=== PATIENT | male | born 1945 | race Caucasian/White ===

== ENCOUNTER → 2017-03-03 | Outpatient (CLI) | payer MEDICARE ==
[~2017-03-03] MED LIST: /PANT40TA OR; ASPI81TA83 OR; DOCU10ELUD PO; LIDO5DIS TOP; LISI20TA5 OR; MILKSUS5 PO; MIRALEX PO; MS C30TA2 OR; MULTIVIT PO; NALOXONE OR; NAPR500T OR; NEUR300C PO; NORC5TAB PO; PENTAZOCINE OR; SIMV40TA2 OR; SKEL800T5 OR; SOMA350T OR; SOMA350T PO; TALWIN PO; TRAM50TA2 OR; TUMS500C OR; TYLE325T5 PO; ZOFR8TAB OR; flexeril PO
--- NOTE | 2017-03-03 15:44 | REP ---
MRI RIGHT HIP: TECHNIQUE: Coronal T1, STIR through the pelvis, T2 fat sat, right hip all three planes, axial oblique proton density fat sat right hip. The visualized osseous structures demonstrate normal marrow signal. There is no evidence of occult fracture. There is no evidence of avascular necrosis. I do not see evidence of a labral tear. There is no joint effusion. There is no paralabral cyst or other surrounding soft tissue abnormality. There is no evidence of trochanteric bursitis. Within the visualized portions of the pelvis, note is made of a significantly enlarged prostate. This impresses upon the base of the bladder. IMPRESSION: Essentially negative MRI right hip. Enlargement of the prostate. Signed by James Cantrell MD 03/03/2017 04:55 P
== END ==
LOC: M RAD 11:00
PROVIDERS: ATTEND Nurse Practitioner Family
DX: M47.816 Spondylosis without myelopathy or radiculopathy, lumbar region (principal); M25.551 Pain in right hip; M51.27 Other intervertebral disc displacement, lumbosacral region; M51.37 Other intervertebral disc degeneration, lumbosacral region; M54.16 Radiculopathy, lumbar region; M46.1 Sacroiliitis, not elsewhere classified; I10 Essential (primary) hypertension; N40.0 Benign prostatic hyperplasia without lower urinary tract symptoms

== ENCOUNTER → 2017-08-18 | Outpatient (REF) | payer MEDICARE | LOC: M LAB REF 17:43 | PROVIDERS: ATTEND Surgery | DX: C44.519 Basal cell carcinoma of skin of other part of trunk (principal) ==

== ENCOUNTER → 2018-03-27 | Outpatient (CLI) | payer MEDICARE | LOC: M RAD 10:03 | DX: M54.12 Radiculopathy, cervical region (principal) | CPT/HCPCS: 72141 ==

== ENCOUNTER → 2019-01-29 | Outpatient (CLI) | payer MEDICARE ==
--- NOTE | 2019-01-29 11:20 | REP ---
MRI THORACIC SPINE WITHOUT CONTRAST: HISTORY: Thoracic radiculopathy. Comparison is made with a chest x-ray from April 26, 2012 and lumbar spine MR images from December 17, 2014. TECHNIQUE: Sagittal and axial T1- and T2-weighted scans are acquired in the usual fashion with and without fat saturation. Sequences include spin echo, turbo spin-echo, and STIR imaging sequences. MRI FINDINGS: Thoracic vertebral body heights are preserved. There is degenerative spondylosis changes in the mid and lower thoracic spine. Thoracic cord is normal in coarse, caliber and signal intensity. The tip of the conus medullaris is normal in position and appearance at L1. There is a central focal disc protrusion at T10-T11 which indents the ventral margin of the thecal sac. This subtly indents the ventral margin of the cord as well on sagittal T2-weighted scans. No central canal stenosis is seen. At T9-10, there is a right posterior focal disc protrusion effacing the thecal sac. This does not contact the cord. As above, mild diffuse bulging is seen at T8-9. T8-9 disc space is narrowed. At T7-8, there is a central focal disc protrusion effacing the ventral subarachnoid space. This indents the ventral margin of the cord. No overall central canal stenosis is seen. At T6-7, there is also a focal disc protrusion centrally. This contacts the ventral margin of the cord. No cord compression is seen. No other thoracic disc protrusion is seen. No neural foraminal lesion is observed. IMPRESSION: Degenerative spondylosis changes with multiple thoracic disc protrusions Electronically Signed by Domingo Card MD 01/29/2019 12:50 P
== END ==
LOC: M RAD 07:07
PROVIDERS: ATTEND Family Medicine
DX: M47.814 Spondylosis without myelopathy or radiculopathy, thoracic region (principal); M54.14 Radiculopathy, thoracic region; M51.24 Other intervertebral disc displacement, thoracic region

== ENCOUNTER → 2019-03-09 | Outpatient (CLI) | payer MEDICARE ==
[~2019-03-09] MED LIST changes: -/PANT40TA OR; -DOCU10ELUD PO; +DOCU5LIQ PO; +ONDA-227 OR; +PROT1TAB2 OR; -ZOFR8TAB OR
--- NOTE | 2019-03-09 08:27 | REP ---
CT of the abdomen pelvis without IV or bowel contrast for generalized abdominal pain: There are no comparisons. The the visualized lower lung brock demonstrate deformities anteriorly in the right fourth and fifth ribs, unchanged from the comparison plain film study of 04/26/2012. This may represent synostosis. There is a nodular density with adjacent linear stranding in the lung adjacent to this rib deformity measuring 19 mm. There are no comparison CT studies. There is deformity of the posterior arch of the left sixth rib, partially included on the study. On the comparison plain film of 04/26/2012. This appears to be an old healed fracture. There is a pleural-based 1.3 cm nodule peripherally in the left lower lobe on image 12. There is an infiltrate like density in the right lower lobe on the superior most image, partially included. The unenhanced hepatic parenchyma demonstrates hepato steatosis but is otherwise unremarkable. There are multiple gallbladder calculi measuring up to 1.4 cm. The gallbladder is otherwise unremarkable. There is no biliary duct dilatation. The unenhanced pancreas is unremarkable. The spleen is normal size unremarkable except for calcified granulomas. The adrenals are unremarkable. There are bilateral renal cortical simple cysts, the largest in the left kidney measuring up to 2.9 cm. There is a large left renal lower pole parapelvic cyst measuring up to 5.1 cm. There is no hydronephrosis or perinephric stranding. The abdominal aorta is unremarkable. There is no retroperitoneal adenopathy or mass. There is no bowel distension or obstruction. The mesentery is unremarkable. Pelvis: The the patient has an appendectomy. The bladder is unremarkable. The prostate is enlarged and effaces the bladder base. There is no pelvic adenopathy or ascites. The pelvic bowel loops are unremarkable. There is no diverticulosis or diverticulitis. Impression: Rib deformities as described. Lung nodules as described. Right lower lobe infiltrate as described. Hepato steatosis. Cholelithiasis. Bilateral simple renal cortical cysts and left renal parapelvic cyst. No renal or ureteral calculi. No hydronephrosis. No ascites, adenopathy or mass. There is lumbar scoliosis convex right and there is multilevel lumbar degenerative disc disease. The prostate is enlarged and effaces the bladder base. Electronically Signed by James De Los Santos MD 03/09/2019 08:19 A
== END ==
LOC: M RAD 07:16
PROVIDERS: ATTEND Family Medicine
DX: R10.84 Generalized abdominal pain (principal); K80.20 Calculus of gallbladder without cholecystitis without obstruction; N28.1 Cyst of kidney, acquired; Z90.49 Acquired absence of other specified parts of digestive tract; N40.0 Benign prostatic hyperplasia without lower urinary tract symptoms; R91.8 Other nonspecific abnormal finding of lung field; M51.36 Other intervertebral disc degeneration, lumbar region

== ENCOUNTER → 2019-03-20 | Outpatient (CLI) | payer MEDICARE ==
[~2019-03-20] MED LIST changes: +ISOVUE-370 76% 100ML VIAL (Q9967) As Ordered ONE
--- NOTE | 2019-03-21 08:01 | REP ---
CT chest with IV contrast: History: Abnormal lung field finding. Comparison is made with CT abdomen study March 09, 2019. Comparison chest x-ray is from April 26, 2012. CT contrast dose: 100 ml of intravenous Isovue 370. CT findings: Digital preliminary motion picture operator radiograph demonstrates a levoconvex thoracic curvature consistent with scoliosis. There is a right thoracic cage deformity which includes a fusion anomaly and the anterior ends of the right fourth and fifth ribs. Some associated bony hypertrophy and this fusion anomaly indents the anterior aspect of the right lung at this level. There is an old healed rib fracture on the left involving rib number seven posterolaterally. There is an area of linear pleural calcification and adjacent scarring in this left lateral chest wall region. There is extensive pleuroparenchymal fibrosis in the right middle lobe. A there is no evidence of pleural effusion. Some of bilateral lower lobe linear fibrosis is seen. There are granulomatous lymph node calcifications the precarinal region as well as right hilar lymph nodes. No significant adenopathy is seen. There are scattered pulmonary granulomata. The nodular opacity described in the right middle lobe on the CT abdomen is seen to be fibrosis as is the nodular opacity in the left base. No significant pulmonary nodule is appreciated. Fatty infiltration of the liver is again noted along with gallstones. No adrenal lesion is seen. Visualized upper abdominal structures are otherwise unremarkable. There is some bilateral coronary artery vascular calcification. A right thyroid nodule is noted measuring 2.9 x 83.4 x 2.6 cm. 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 Old posterior rib fracture on the left. Bilateral areas of pleuroparenchymal scarring and old granulomatous disease. No active cardiopulmonary disease seen. Fatty infiltration of the liver and gallstones again noted. There is a right thyroid nodule also noted. Electronically Signed by Domingo Card MD 03/21/2019 09:10 A
== END ==
LOC: M RAD 15:24
PROVIDERS: ATTEND Family Medicine
DX: K76.0 Fatty (change of) liver, not elsewhere classified (principal); E04.1 Nontoxic single thyroid nodule; J94.8 Other specified pleural conditions; K80.20 Calculus of gallbladder without cholecystitis without obstruction
CPT/HCPCS: 71260; Q9967

== ENCOUNTER → 2019-06-14 | Outpatient (REF) | payer MEDICARE ==
[~2019-06-14] MED LIST changes: -ISOVUE-370 76% 100ML VIAL (Q9967) As Ordered ONE
== END ==
LOC: M LAB REF 11:28
PROVIDERS: ATTEND Internal Medicine Endocrinology, Diabetes & Metabolism
DX: E04.1 Nontoxic single thyroid nodule (principal)

== ENCOUNTER → 2019-08-08 | Outpatient (CLI) | payer MEDICARE ==
--- NOTE | 2019-08-08 09:48 | REP ---
MRI of the lumbar spine without contrast Indication: Other intervertebral disc displacement, lumbar region. Comparison: MRI of the lumbar spine 12/17/2014. Technique: MRI of the lumbar spine was performed utilizing sagittal STIR, T1 and T2, and axial T1 and T2 weighted imaging. No intravenous contrast was administered. Findings: There is dextrocurvature of the lumbar spine. There is normal alignment of the lumbar spine. Vertebral body heights are maintained. There are multilevel degenerative changes including loss of disc height and endplate marrow edema and disc osteophyte complex formation at L2-L3, L3-L4 and L4-L5. The visualized spinal cord is normal. The conus medullaris terminates at the level of L1. The posterior paraspinal muscles are within normal limits. 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 Note is made of T2 hyperintensities within both kidneys which are incompletely imaged but possibly representing cysts. Level specific observations: L1-L2: Unremarkable. L2-L3: Diffuse disc bulge, eccentric to the right. Bilateral facet arthropathy. L3-L4: Diffuse disc bulge, eccentric to the left. Bilateral facet arthropathy. Bilateral neural foraminal narrowing, similar to prior. L4-L5: Diffuse disc bulge. Bilateral facet arthropathy. Severe right and mild left neural foraminal narrowing, similar to prior. L5-S1: Unremarkable. Impression: When compared to the MRI lumbar spine of 12/17/2014, no significant change in lumbar spondylosis at L2-L5, worse at L4-L5 with severe right and mild left neural foraminal narrowing. Dextro curvature of the lumbar spine. Electronically Signed by Trish Bonilla MD 08/08/2019 09:40 A
== END ==
LOC: M RAD 08:38
PROVIDERS: ATTEND Family Medicine
DX: M51.26 Other intervertebral disc displacement, lumbar region (principal)

== ENCOUNTER → 2019-09-12 | Outpatient (CLI) | payer MEDICARE ==
[~2019-09-12] MED LIST changes: +ISOVUE-370 76% 100ML VIAL (Q9967) As Ordered ONE
--- NOTE | 2019-09-12 10:58 | REP ---
CT neck soft tissues: 09/12/2019. Indication: Thyroid mass. Comparison: Chest CT dated 03/20/2019. Technique: Enhanced axial CT images of the neck were performed with coronal and sagittal reconstructions provided. 75 ml of IV Isovue 370 were administered. Findings: The dominant right thyroid nodule is increased in size compared to the previous study now measuring 3.8 by 3.1 x 3.7 with mild leftward deviation of the trachea. The mass extends minimally into the superior mediastinum. Lack of contrast within the right sigmoid sinus that appears to extend through the jugular foramen with occlusion of the most proximal/superior right IJ. The visualized lungs are clear. 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 There is no evidence of cervical lymphadenopathy. Atherosclerotic disease of the V4 segments is present. No significant ocular or intraorbital abnormalities are detected. There is minimal sinus disease within the inferior maxillary sinuses, more pronounced on the right. The mastoid air cells are clear. Impression: Dominant right thyroid nodule with measurements as described. No cervical lymphadenopathy. Right sigmoid sinus dural sinus thrombosis with thrombus extending into the proximal IJ is suspected. CT venogram could be performed if indicated. Mediastinal calcification raising question of calcified lymph nodes as described. Mild maxillary sinus disease. Electronically Signed by Aravind Mcbride DO 09/12/2019 10:49 A
== END ==
LOC: M RAD 09:52
PROVIDERS: ATTEND Student in an Organized Health Care Education/Training Program
DX: E04.9 Nontoxic goiter, unspecified (principal)
CPT/HCPCS: 70491; Q9967

== ENCOUNTER → 2019-11-30 | Outpatient (CLI) | payer MEDICARE ==
[~2019-11-30] MED LIST changes: -ISOVUE-370 76% 100ML VIAL (Q9967) As Ordered ONE
--- NOTE | 2019-11-30 11:28 | REP ---
Clinical: Right lower extremity pain . Technique: Cantrell scale and color Doppler evaluation using linear high frequency transducer. Findings: Ultrasound examination of the right lower extremity deep venous structures from the common femoral vein to the popliteal vein demonstrates normal compressibility flow and wave patterns in response to respiration and augmentation. There is no evidence for deep venous thrombosis. 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 Impression: No evidence for deep venous thrombosis. Electronically Signed by Erlin Charlton MD 11/30/2019 11:19 A
== END ==
LOC: M RAD 10:05
PROVIDERS: ATTEND Nurse Practitioner Family
DX: M79.604 Pain in right leg (principal)

== ENCOUNTER → 2019-12-10 | Outpatient (REF) | payer MEDICARE ==
[2019-12-12 14:10] LABS: THRYOGLOBULIN ANTIBODIES (ATA) < 1.0 IU/mL (0.0-0.9); THYROGLOBULIN QUANTITATIVE 12.8 ng/mL (1.4-29.2)
== END ==
LOC: M LABDRAW1 17:23
PROVIDERS: ATTEND Internal Medicine Endocrinology, Diabetes & Metabolism
DX: C73 Malignant neoplasm of thyroid gland (principal)

== ENCOUNTER → 2020-11-13 | Outpatient (CLI) | payer MEDICARE ==
[2020-11-13 14:28] LABS: CALCIUM LEVEL 9.8 MG/DL (8.8-10.2); FREE T4 1.37 NG/DL (0.76-1.46); THYROGLOBULIN ANTIBODY < 15.0 U/ML (<60.0); THYROID STIMULATING HORMONE 0.027 uIU/ML (0.358-3.740)
[2020-11-14 10:12] LABS: THRYOGLOBULIN ANTIBODIES (ATA) < 1.0 IU/mL (0.0-0.9); THYROGLOBULIN QUANTITATIVE < 0.1 ng/mL (1.4-29.2)
== END ==
LOC: M PLALAB 10:25
PROVIDERS: ATTEND Internal Medicine Endocrinology, Diabetes & Metabolism
DX: C73 Malignant neoplasm of thyroid gland (principal); G56.00 Carpal tunnel syndrome, unspecified upper limb

== ENCOUNTER → 2021-01-25 | Outpatient (CLI) | payer MEDICARE ==
[~2021-01-25] MED LIST changes: +DORZ2SOL5 OU; +ECOT81TA5 PO; +LEVO137T2 PO; +LISI20TA33 PO; +METF10004 PO; +OXYC10TA3 PO; +PREG200C PO; +SIMV40TA20 PO; +TAMS1CAP17 PO
== END ==
LOC: M LABSMTC 09:56
PROVIDERS: ATTEND Anesthesiology
DX: Z01.812 Encounter for preprocedural laboratory examination (principal); Z20.822 Contact with and (suspected) exposure to COVID-19

== ENCOUNTER 2021-01-30 06:06 | Day surgery (SDC) | payer MEDICARE ==
[~2021-01-30] VITALS: Ht 170.2 cm; Wt 93.0 kg
[2021-01-30] MEDS ORDERED: ceFAZolin SOD 2 GM in IV 1 EA IV ONE (07:00)
[2021-01-30] MEDS ORDERED: LR 1,000 ML IV ONE (07:00)
[2021-01-30] MEDS ORDERED: BUPIVACAINE/EPIN 0.25% 30 ML VIAL As Ordered ONE (07:14)
[2021-01-30] MEDS ORDERED: ROCURONIUM BROMIDE 50 MG/5 ML VIAL As Ordered ONE ×2 (07:20→09:40)
[2021-01-30] MEDS ORDERED: propofoL 200 MG/20 ML VIAL As Ordered ONE ×2 (07:20→07:21)
[2021-01-30] MEDS ORDERED: LIDOCAINE 2% 100MG/5ML SDV (FOR ANES.) As Ordered ONE (07:20)
[2021-01-30] MEDS ORDERED: fentaNYL 250 MCG/5 ML INJECTION (J3010) As Ordered ONE (07:20)
[2021-01-30] MEDS ORDERED: MIDAZOLAM INJ 2MG/2ML VIAL (J2250 PER 1MG) As Ordered ONE (07:21)
[2021-01-30] MEDS ORDERED: KETOROLAC 60MG 2ML VIAL As Ordered ONE (08:15)
[2021-01-30] MEDS ORDERED: ONDANSETRON 4MG/2ML VIAL As Ordered ONE (08:15)
[2021-01-30] MEDS ORDERED: ACETAMINOPHEN 1000MG 100ML IV BTL (OFIRMEV) (J0131 PER 10MG) As Ordered ONE (08:15)
[2021-01-30] MEDS ORDERED: SUGAMMADEX SODIUM 500 MG/5 ML VIAL (BRIDION) As Ordered ONE (08:16)
[2021-01-30] MEDS ORDERED: LR 1,000 ML IV SCH (09:00)
[2021-01-30] MEDS ORDERED: METOCLOPRAMIDE INJ 10MG/2ML VIAL (J2765 PER 1) IV PRN (09:00)
[2021-01-30] MEDS ORDERED: ONDANSETRON 4MG/2ML VIAL IV PRN (09:00)
[2021-01-30] MEDS ORDERED: fentaNYL 100 MCG/2 ML INJECTION (J3010) IV PRN (09:00)
[2021-01-30] MEDS ORDERED: oxyCODONE 5MG TAB PO PRN (09:00)
[2021-01-30] MEDS ORDERED: NORCO, ANEXSIA 5/325MG TABLET (HYDROcodone/ACETAMINOPHEN) PO PRN (09:05)
[2021-01-30] MEDS ORDERED: MEPERIDINE INJ 25 MG/ML VIAL (J2175) As Ordered ONE (09:14)
[2021-01-30] MEDS: MEPERIDINE INJ 25 MG/ML VIAL (J2175) IV PRN ×2 (09:16→09:22)
--- NOTE | 2021-01-30 09:21 | RO ---
OPERATIVE NOTE DATE OF OPERATION: 01/30/2021 PREOPERATIVE DIAGNOSIS: Umbilical hernia. POSTOPERATIVE DIAGNOSIS: Umbilical hernia. PROCEDURE: Robotic umbilical hernia repair. SURGEON: James Collier DO CHANGE ROOM ATTENDANT: Sanna Newsome ANESTHESIA: General EBL: 5. COMPLICATIONS: None. INDICATIONS FOR PROCEDURE: The patient is a 75-year-old male who presents with umbilical bulge and some pain, found to have an umbilical hernia. Recommendation made to proceed with robotic repair. Risks and benefits of the procedure not limited to but including bleeding, infection, hernia recurrence, hernia formation, damage to surrounding structures, need for further surgery were discussed in detail with the patient and informed consent was obtained and procedure planned. DESCRIPTION OF PROCEDURE: The patient was brought back to operating room 7, after sufficient sedation the abdomen was sterilely prepped and draped. Time out was done confirming proper patient, proper procedure. An 8 mm incision was made in left upper quadrant, Veress needle inserted and abdomen insufflated to 15 mmHg. Veress needle was then removed. 8 mm Optiview port was used to gain access to the abdomen. Once the abdomen was entered umbilical hernia was identified. Two more ports were then placed, one subxiphoid just to the left of the midline and one in right upper quadrant. Horizontal incision was then made into the preperitoneal space just superior to the umbilicus. The preperitoneal space was dissected free heading inferiorly surrounding the umbilicus. The umbilical defect was dissected free; all hernia sac and contents were reduced and completed. #0 Stratafix suture was used to reapproximate the fascia. Once that was completed the 3 x 5 cm piece of ProGrip mesh was placed into the preperitoneal space overlying the suture defect. The peritoneum was then closed over top of the mesh with running 2-0 V-Loc suture. Once this was all completed the abdomen was desufflated. Skin incisions were closed with 4-0 Vicryl subcuticular suture. The abdomen was cleaned and dried. Steri-Strips and 4 x 4 tapes were applied. This ended the procedure.
[2021-01-30 11:40] VITALS: BP 145/67
== END 2021-01-30 12:00 | disposition home or self-care (01) ==
LOC: M SDC 06:06
PROVIDERS: ATTEND Surgery
DX: K42.9 Umbilical hernia without obstruction or gangrene (principal); E11.9 Type 2 diabetes mellitus without complications; I10 Essential (primary) hypertension; E03.9 Hypothyroidism, unspecified; E78.5 Hyperlipidemia, unspecified; N40.0 Benign prostatic hyperplasia without lower urinary tract symptoms; Z85.850 Personal history of malignant neoplasm of thyroid; Z79.82 Long term (current) use of aspirin; Z79.84 Long term (current) use of oral hypoglycemic drugs; Z79.899 Other long term (current) drug therapy
CPT/HCPCS: 49652; C1781; J0131; J0690; J1885; J2175; J2250; J2405; J3010; S2900

== ENCOUNTER → 2021-03-10 | Outpatient (CLI) | payer MEDICARE ==
--- NOTE | 2021-03-10 14:44 | REP ---
INDICATION: MAL NEOPLASM OF THYROID. COMPARISON: None FINDINGS: Ultrasonographic evaluation of the central neck shows no evidence of a mass, adenopathy, or residual thyroid tissue. Evaluation of the right lateral neck cervical lymph node chain shows no evidence of adenopathy or mass. Evaluation of the left lateral neck. Cervical lymph node chain shows no evidence of a mass or adenopathy IMPRESSION: No evidence of adenopathy or mass as described above. <Electronically signed by Markus Gama > 03/10/21 [id number]
== END ==
LOC: M RAD 14:04
PROVIDERS: ATTEND Internal Medicine Endocrinology, Diabetes & Metabolism
DX: C73 Malignant neoplasm of thyroid gland (principal)

== ENCOUNTER → 2021-09-14 | Outpatient (CLI) | payer MEDICARE ==
--- NOTE | 2021-09-14 12:52 | REP ---
INDICATION: PAIN IN LEFT KNEE COMPARISON: None. TECHNIQUE: Five views left knee. FINDINGS: There is no evidence of acute fracture, dislocation, or intrinsic bone disease.There is mild medial joint space narrowing, subchondral sclerosis and spurring. Mild patellofemoral compartment narrowing and subchondral sclerosis. IMPRESSION: No fracture or dislocation. Mild degenerative changes. <Electronically signed by James Cantrell > 09/14/21 [id number]
== END ==
LOC: M RAD 11:57
PROVIDERS: ATTEND Family Medicine
DX: M17.12 Unilateral primary osteoarthritis, left knee (principal)

== ENCOUNTER → 2021-09-30 | Outpatient (CLI) | payer MEDICARE ==
--- NOTE | 2021-09-30 16:38 | REP ---
INDICATION: HX OF THYROID CA, MAL DINAH OF THYROID GLAND. COMPARISON: Ultrasound 03/10/2021, CT 09/12/2019. TECHNIQUE: Real-time sonographic evaluation of soft tissues neck performed. FINDINGS: Hypoechoic nodules are seen in the soft tissues of the neck, felt to represent lymph nodes. The largest on the right measure 1.3 x 0.3 x 1.1 cm and 1.1 x 0.6 x 1.0 cm. The largest on the left measure 6 x 5 x 5 mm and 7 x 3 x 6 mm. IMPRESSION: Hypoechoic nodules in the soft tissues of the neck are felt to represent lymph nodes as discussed in detail above. All lymph nodes demonstrate a short axis dimension that is sonographically within normal limits. <Electronically signed by James Cantrell > 09/30/21 [id number]
== END ==
LOC: M RAD 15:01
PROVIDERS: ATTEND Internal Medicine Endocrinology, Diabetes & Metabolism
DX: C73 Malignant neoplasm of thyroid gland (principal)

== ENCOUNTER 2021-10-14 06:09 | Emergency (ER) | payer MEDICARE ==
[~2021-10-14] VITALS: Ht 170.2 cm; Wt 93.2 kg
--- OUTSIDE RECORDS SUMMARY | 2021-10-14 06:13 | CCD ---
Author Organization Unknown Address [address] [place] [address] Phone [phone] Care Team Providers Care Relay Man Name Role Phone LORENA CABRAL MD 3 [phone] Allergies Code Code System Name Reaction Severity Status Onset NKDA Medications Name Status Start Date Stop Date amitriptyline 25 mg tablet 1 tab daily Completed 08/16/2019 amoxicillin 500 mg capsule Completed 12/24 amoxicillin 875 mg-potassium clavulanate 125 mg tablet Completed 05/29/2021 Asprin Ec Low Dose 81 mg tablet,delayed release Take 1 tablet every day by oral route. Active Not available cefuroxime axetil 500 mg tablet Completed 04/16/2019 dorzolamide 22.3 mg-timolol 6.8 mg/mL ey e drops INSTILL 1 DROP IN EACH EYE TWO TIMES A DAY Active Not available duloxetine 30 mg capsule,delayed release TAKE ONE CAPSULE BY MOUTH EVERY DAY Active Not available Fluad Quad (65yr up)(PF) 60 mcg (15 mcg x 4)/0.5mL IM syringe INJECT DIRECTED Completed 11/24/2020 levofloxacin 500 mg tablet 1 tab daily Completed 07/03/2019 levothyroxine 137 mcg tablet TAKE ONE TABLET BY MOUTH DAILY Active Not avai lable lisinopril 20 mg tablet TAKE ONE TABLET BY MOUTH EVERY DAY Active Not available metformin 1,000 mg tablet Active Not av ailable metformin ER 500 mg tablet,extended rele ase 24 hr 1 tab twice daily Completed 11/24/2020 methylprednisolone 4 mg tablets in a dose pack Completed 04/30/2021 morphine 15 mg immediate release tablet TAKE ONE TABLET BY MOUTH TWICE A DAY NEEDED MAXIMUM DAILY DOSE 2 Active Not available neomycin 3.5 mg/g-polymyxin B 10,000 unit/g-dexameth 0.1 % eye o int Completed 07/03/2019 ondansetron HCl 4 mg tablet Completed 05/29 OneTouch Verio test strips USE DIRECTED TWO TIMES A DAY Active Not maricruz ilable oxycodone-acetaminophen 10 mg-325 mg tab let TAKE ONE TABLET BY MOUTH EVERY 8 HOURS NEEDED MAXIMUM DAILY DOSE 3 TABLET Active Not available prednisone 20 mg tablet Completed 01/17/20 pregabalin 150 mg capsule TAKE ONE CAPSULE BY MOUTH THREE TIMES A DAY MAXIMUM DAILY DOSE 3 CAPSULES Completed 09/09/2021 pregabalin 200 mg capsule TAKE ONE CAPSULE BY MOUTH THREE TIMES A DAY MAXIMUM DAILY DOSE 3 CAPSULES Active Not available ropinirole 0.5 mg tablet Completed 019 simvastatin 40 mg tablet TAKE ONE TABLET BY MOUTH IN THE EVENING Active Not available tamsulosin 0.4 mg capsule Active Not av ailable Problems Name Status Onset Date Source Hypertensive Disorder Active 01/17/2013 History 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 H istory Displacement of Lumbar Intervertebral Disc without Myelopath y Unknown 01/17/2013 History Prolapsed Lumbar Intervertebral Disc Active 01/17/2013 History Degeneration of Lumbosacral Intervertebral Disc Unknown 01/17/2013 History Degeneration of Lumbar Intervertebral Disc Active 01/17 History Inflammation of Sacroiliac Joint Unknown 07/31/2013 History Lumbosacral Radiculopathy Active 11/20/2013 Histor y Intervertebral Disc Prolapse Active 09/14/2015 His tory Degeneration of Lumbosacral Intervertebral Disc Active 09/14/2015 History Joint Finding Active 02/28/2017 History Neck Pain Active 03/20/2018 History Cervical Radiculopathy Active 03/20/2018 History Prolapsed Thoracic Intervertebral Disc Active 8 History Procedures Date Name Performed by Thyroidectomy Information not avai lable 10/24/2019 US, Doppler, Venous Information not avai lable Notes: appendectomy, left inguinal herni a repair, right inguinal hernia repair, tonsillectomy/adenoidectomy, right foot fusion, diaphramatic hernia repair, cosmetic eye surgery 10/201711/07/2017 Results Lab Results Date Name Specimen Result Interpretation Description Value Range Status Address 05/04/2021 [facility] Report NOS No observation recorded. [facility]: [address] , [place] 05/04/2021 SARS CoV 2 RNA (COVID-19), QL, retail assistant-PCR, Respirat ory Specimen NOS Normal Sars-cov-2 negative negative Final [facility]: [address] , [place] 03/16/2021 [facility] P[facility] Report NOS No observation recorded. [facility]: [address] [facility], [place] 03/16/2021 SARS CoV 2 RNA (COVID-19), QL, retail assistant-PCR, Respirat ory Specimen NOS Normal Sars-cov-2 negative negative Final [facility]: [address] [facility], [place] 12/26/2020 [facility] Pdf Report NOS No observation recorded. [facility]: [address] [facility], [place] 12/26/2020 SARS CoV 2 RNA (COVID-19), QL, retail assistant-PCR, Respirat ory Specimen NOS Normal Sars-cov-2 negative negative Final [facility]: [address] [facility], [place] 12/15/2020 [facility] Pdf Report NOS No observation recorded. [facility]: [address] [facility], [place] 12/15/2020 SARS CoV 2 RNA (COVID-19), QL, retail assistant-PCR, Respirat ory Specimen NOS Normal Sars-cov-2 negative negative Final [facility]: [address] [facility], [place] 04/29/2020 SARS CoV 2 RNA (COVID-19), QL, retail assistant-PCR, Respiratory Specim en No observation recorded. [employer]: [address] [facility], [place] Past Encounters 09/09/2021 Degeneration of Lumbar Intervertebral Disc; Degeneration of Lumbosacral Intervertebral Disc; Displacement of Lumbar Intervertebral Disc without Myelopathy; Intervertebral Disc Disorder; Spondylosis without Myelopathy; Lumbosacral Spondylosis without Myelopathy; Lumbar Radiculopathy; Cervical Radiculopathy; Displacement of Cervical Intervertebral Disc without Myelopathy; Degeneration of Cervical Intervertebral Disc; Cervical Spondylosis without Myelopathy; Inflammation of Sacroiliac Joint; Myofascial Pain; Thoracic Radiculopathy; Displacement of Thoracic Intervertebral Disc without Myelopathy; Degeneration of Thoracic Intervertebral Disc; Thoracic Spondylosis without Myelopathy; Pain in Right Lower Limb Julia Claros [employer]ER: [address], [place] [address], Ph. 05/08/2021 Thoracic Radiculopathy; Displacement of Thoracic Intervertebral Disc without Myelopathy; Degeneration of Thoracic Intervertebral Disc; Thoracic Spondylosis without Myelopathy; Degeneration of Lumbar Intervertebral Disc; Degeneration of Lumbosacral Intervertebral Disc; Displacement of Lumbar Intervertebral Disc without Myelopathy; Intervertebral Disc Disorder; Spondylosis without Myelopathy; Lumbosacral Spondylosis without Myelopathy; Lumbar Radiculopathy; Cervical Radiculopathy; Displacement of Cervical Intervertebral Disc without Myelopathy; Degeneration of Cervical Intervertebral Disc; Cervical Spondylosis without Myelopathy; Inflammation of Sacroiliac Joint; Myofascial Pain; Pain in Right Lower Limb Enio Mayes MD: [id number] [place] [address], Ph. 05/04/2021 Pre-surgery Testing; Viral Screening Enio Mayes MD: [address] [address], Ph. [phone] 04/30/2021 Degeneration of Lumbar Intervertebral Disc; Degeneration of Lumbosacral Intervertebral Disc; Displacement of Lumbar Intervertebral Disc without Myelopathy; Intervertebral Disc Disorder; Spondylosis without Myelopathy; Lumbosacral Spondylosis without Myelopathy; Lumbar Radiculopathy; Cervical Radiculopathy; Displacement of Cervical Intervertebral Disc without Myelopathy; Degeneration of Cervical Intervertebral Disc; Cervical Spondylosis without Myelopathy; Inflammation of Sacroiliac Joint; Myofascial Pain; Thoracic Radiculopathy; Displacement of Thoracic Intervertebral Disc without Myelopathy; Degeneration of Thoracic Intervertebral Disc; Thoracic Spondylosis without Myelopathy; Pain in Right Lower Limb Julia Claros [employer]: [address] [place] [address], Ph. 04/02/2021 Degeneration of Lumbar Intervertebral Disc; Degeneration of Lumbosacral Intervertebral Disc; Displacement of Lumbar Intervertebral Disc without Myelopathy; Intervertebral Disc Disorder; Spondylosis without Myelopathy; Lumbosacral Spondylosis without Myelopathy; Lumbar Radiculopathy; Cervical Radiculopathy; Displacement of Cervical Intervertebral Disc without Myelopathy; Degeneration of Cervical Intervertebral Disc; Cervical Spondylosis without Myelopathy; Inflammation of Sacroiliac Joint; Myofascial Pain; Thoracic Radiculopathy; Displacement of Thoracic Intervertebral Disc without Myelopathy; Degeneration of Thoracic Intervertebral Disc; Thoracic Spondylosis without Myelopathy; Pain in Right Lower Limb Julia Carson [place], [employer]ER: [address], [place] [address], Ph. 03/19/2021 Inflammation of Sacroiliac Joint; Degeneration of Lumbar Intervertebral Disc; Degeneration of Lumbosacral Intervertebral Disc; Displacement of Lumbar Intervertebral Disc without Myelopathy; Intervertebral Disc Disorder; Spondylosis without Myelopathy; Lumbosacral Spondylosis without Myelopathy; Lumbar Radiculopathy; Cervical Radiculopathy; Displacement of Cervical Intervertebral Disc without Myelopathy; Degeneration of Cervical Intervertebral Disc; Cervical Spondylosis without Myelopathy; Myofascial Pain; Thoracic Radiculopathy; Displacement of Thoracic Intervertebral Disc without Myelopathy; Degeneration of Thoracic Intervertebral Disc; Thoracic Spondylosis without Myelopathy; Pain in Right Lower Limb Enio Mayes MD: [address] [address], [place] [address], Ph. 03/16/2021 Pre-surgery Testing; Viral Screening Enio Mayes MD: [id number] [address], [place] [address], Ph. [phone] 03/02/2021 Degeneration of Lumbar Intervertebral Disc; Degeneration of Lumbosacral Intervertebral Disc; Displacement of Lumbar Intervertebral Disc without Myelopathy; Intervertebral Disc Disorder; Spondylosis without Myelopathy; Lumbosacral Spondylosis without Myelopathy; Lumbar Radiculopathy; Cervical Radiculopathy; Displacement of Cervical Intervertebral Disc without Myelopathy; Degeneration of Cervical Intervertebral Disc; Cervical Spondylosis without Myelopathy; Inflammation of Sacroiliac Joint; Myofascial Pain; Thoracic Radiculopathy; Displacement of Thoracic Intervertebral Disc without Myelopathy; Degeneration of Thoracic Intervertebral Disc; Thoracic Spondylosis without Myelopathy; Pain in Right Lower Limb Julia Claros NP: [id number] [facility] [address], [place] [address], Ph. 01/12/2021 Degeneration of Lumbar Intervertebral Disc; Degeneration of Lumbosacral Intervertebral Disc; Displacement of Lumbar Intervertebral Disc without Myelopathy; Intervertebral Disc Disorder; Spondylosis without Myelopathy; Lumbosacral Spondylosis without Myelopathy; Lumbar Radiculopathy; Cervical Radiculopathy; Displacement of Cervical Intervertebral Disc without Myelopathy; Degeneration of Cervical Intervertebral Disc; Cervical Spondylosis without Myelopathy; Inflammation of Sacroiliac Joint; Myofascial Pain; Thoracic Radiculopathy; Displacement of Thoracic Intervertebral Disc without Myelopathy; Degeneration of Thoracic Intervertebral Disc; Thoracic Spondylosis without Myelopathy; Pain in Right Lower Limb Julia ClarosJENNIFER: [address] [facility] [address], [place] [address], Ph. 12/31/2020 Lumbar Radiculopathy; Degeneration of Lumbar Intervertebral Disc; Degeneration of Lumbosacral Intervertebral Disc; Displacement of Lumbar Intervertebral Disc without Myelopathy; Intervertebral Disc Disorder; Spondylosis without Myelopathy; Lumbosacral Spondylosis without Myelopathy; Cervical Radiculopathy; Displacement of Cervical Intervertebral Disc without Myelopathy; Degeneration of Cervical Intervertebral Disc; Cervical Spondylosis without Myelopathy; Inflammation of Sacroiliac Joint; Myofascial Pain; Thoracic Radiculopathy; Displacement of Thoracic Intervertebral Disc without Myelopathy; Degeneration of Thoracic Intervertebral Disc; Thoracic Spondylosis without Myelopathy; Pain in Right Lower Limb Enio Mayes MD: [address] [address], [place] [address], Ph. 12/26/2020 Pre-surgery Testing; Viral Screening Enio Mayes MD: [address] [address], [place] [address], Ph. [phone] 12/18/2020 Lumbar Radiculopathy; Degeneration of Lumbar Intervertebral Disc; Degeneration of Lumbosacral Intervertebral Disc; Displacement of Lumbar Intervertebral Disc without Myelopathy; Intervertebral Disc Disorder; Spondylosis without Myelopathy; Lumbosacral Spondylosis without Myelopathy; Cervical Radiculopathy; Displacement of Cervical Intervertebral Disc without Myelopathy; Degeneration of Cervical Intervertebral Disc; Cervical Spondylosis without Myelopathy; Inflammation of Sacroiliac Joint; Myofascial Pain; Thoracic Radiculopathy; Displacement of Thoracic Intervertebral Disc without Myelopathy; Degeneration of Thoracic Intervertebral Disc; Thoracic Spondylosis without Myelopathy; Pain in Right Lower Limb Enio Mayes MD: [address] [facility] [address], [address], [place] [address], Ph. 12/15/2020 Pre-surgery Testing; Viral Screening Enio Mayes MD: 83156 [facility] [address], [place] [address], Ph. [phone] 11/24/2020 Degeneration of Lumbar Intervertebral Disc; Degeneration of Lumbosacral Intervertebral Disc; Displacement of Lumbar Intervertebral Disc without Myelopathy; Intervertebral Disc Disorder; Spondylosis without Myelopathy; Lumbosacral Spondylosis without Myelopathy; Lumbar Radiculopathy; Cervical Radiculopathy; Displacement of Cervical Intervertebral Disc without Myelopathy; Degeneration of Cervical Intervertebral Disc; Cervical Spondylosis without Myelopathy; Inflammation of Sacroiliac Joint; Myofascial Pain; Thoracic Radiculopathy; Displacement of Thoracic Intervertebral Disc without Myelopathy; Degeneration of Thoracic Intervertebral Disc; Thoracic Spondylosis without Myelopathy; Pain in Right Lower Limb Julia Alfredo Claros [employer]ER: [address] [address], [place] [address], Ph. 10/06/2020 Degeneration of Lumbar Intervertebral Disc; Degeneration of Lumbosacral Intervertebral Disc; Displacement of Lumbar Intervertebral Disc without Myelopathy; Intervertebral Disc Disorder; Spondylosis without Myelopathy; Lumbosacral Spondylosis without Myelopathy; Lumbar Radiculopathy; Cervical Radiculopathy; Displacement of Cervical Intervertebral Disc without Myelopathy; Degeneration of Cervical Intervertebral Disc; Cervical Spondylosis without Myelopathy; Inflammation of Sacroiliac Joint; Myofascial Pain; Thoracic Radiculopathy; Displacement of Thoracic Intervertebral Disc without Myelopathy; Degeneration of Thoracic Intervertebral Disc; Thoracic Spondylosis without Myelopathy; Pain in Right Lower Limb [facility] [place], [employer]ER: [address] [facility] [address], [place] [address], Ph. 08/06/2020 Degeneration of Lumbar Intervertebral Disc; Degeneration of Lumbosacral Intervertebral Disc; Displacement of Lumbar Intervertebral Disc without Myelopathy; Intervertebral Disc Disorder; Spondylosis without Myelopathy; Lumbosacral Spondylosis without Myelopathy; Lumbar Radiculopathy; Cervical Radiculopathy; Displacement of Cervical Intervertebral Disc without Myelopathy; Degeneration of Cervical Intervertebral Disc; Cervical Spondylosis without Myelopathy; Inflammation of Sacroiliac Joint; Myofascial Pain; Thoracic Radiculopathy; Displacement of Thoracic Intervertebral Disc without Myelopathy; Degeneration of Thoracic Intervertebral Disc; Thoracic Spondylosis without Myelopathy; Pain in Right Lower Limb Julia Claros, [employer]ER: [address] [address], Ph. 06/25/2020 Degeneration of Lumbar Intervertebral Disc; Degeneration of Lumbosacral Intervertebral Disc; Displacement of Lumbar Intervertebral Disc without Myelopathy; Intervertebral Disc Disorder; Spondylosis without Myelopathy; Lumbosacral Spondylosis without Myelopathy; Lumbar Radiculopathy; Cervical Radiculopathy; Displacement of Cervical Intervertebral Disc without Myelopathy; Degeneration of Cervical Intervertebral Disc; Cervical Spondylosis without Myelopathy; Inflammation of Sacroiliac Joint; Myofascial Pain; Thoracic Radiculopathy; Displacement of Thoracic Intervertebral Disc without Myelopathy; Degeneration of Thoracic Intervertebral Disc; Thoracic Spondylosis without Myelopathy; Pain in Right Lower Limb Julia Carson Hy[place], [employer]ER: [address] [address], Ph. 05/14/2020 Degeneration of Lumbar Intervertebral Disc; Degeneration of Lumbosacral Intervertebral Disc; Displacement of Lumbar Intervertebral Disc without Myelopathy; Intervertebral Disc Disorder; Spondylosis without Myelopathy; Lumbosacral Spondylosis without Myelopathy; Lumbar Radiculopathy; Cervical Radiculopathy; Displacement of Cervical Intervertebral Disc without Myelopathy; Degeneration of Cervical Intervertebral Disc; Cervical Spondylosis without Myelopathy; Inflammation of Sacroiliac Joint; Myofascial Pain; Thoracic Radiculopathy; Displacement of Thoracic Intervertebral Disc without Myelopathy; Degeneration of Thoracic Intervertebral Disc; Thoracic Spondylosis without Myelopathy; Pain in Right Lower Limb Julia Carson Hyacinth, [employer]ER: [address] [address], Ph. 05/02/2020 Thoracic Radiculopathy; Displacement of Thoracic Intervertebral Disc without Myelopathy; Degeneration of Thoracic Intervertebral Disc; Thoracic Spondylosis without Myelopathy; Degeneration of Lumbar Intervertebral Disc; Degeneration of Lumbosacral Intervertebral Disc; Displacement of Lumbar Intervertebral Disc without Myelopathy; Intervertebral Disc Disorder; Spondylosis without Myelopathy; Lumbosacral Spondylosis without Myelopathy; Lumbar Radiculopathy; Cervical Radiculopathy; Displacement of Cervical Intervertebral Disc without Myelopathy; Degeneration of Cervical Intervertebral Disc; Cervical Spondylosis without Myelopathy; Inflammation of Sacroiliac Joint; Myofascial Pain; Pain in Right Lower Limb Enio Mayes MD: [address] [address], [place] [address], Ph. 04/29/2020 Pre-surgery Testing Enio Mayes MD: [address] [address], [place] [address], Ph. [phone] 03/27/2020 Degeneration of Lumbar Intervertebral Disc; Degeneration of Lumbosacral Intervertebral Disc; Displacement of Lumbar Intervertebral Disc without Myelopathy; Intervertebral Disc Disorder; Spondylosis without Myelopathy; Lumbosacral Spondylosis without Myelopathy; Lumbar Radiculopathy; Cervical Radiculopathy; Displacement of Cervical Intervertebral Disc without Myelopathy; Degeneration of Cervical Intervertebral Disc; Cervical Spondylosis without Myelopathy; Inflammation of Sacroiliac Joint; Myofascial Pain; Thoracic Radiculopathy; Displacement of Thoracic Intervertebral Disc without Myelopathy; Degeneration of Thoracic Intervertebral Disc; Thoracic Spondylosis without Myelopathy; Pain in Right Lower Limb Julia Claros [employer]ER: [address] [address], Ph. 02/14/2020 Degeneration of Lumbar Intervertebral Disc; Degeneration of Lumbosacral Intervertebral Disc; Displacement of Lumbar Intervertebral Disc without Myelopathy; Intervertebral Disc Disorder; Spondylosis without Myelopathy; Lumbosacral Spondylosis without Myelopathy; Lumbar Radiculopathy; Cervical Radiculopathy; Displacement of Cervical Intervertebral Disc without Myelopathy; Degeneration of Cervical Intervertebral Disc; Cervical Spondylosis without Myelopathy; Inflammation of Sacroiliac Joint; Myofascial Pain; Thoracic Radiculopathy; Displacement of Thoracic Intervertebral Disc without Myelopathy; Degeneration of Thoracic Intervertebral Disc; Thoracic Spondylosis without Myelopathy; Pain in Right Lower Limb Julia Claros [employer]ER: [address] [address], [place] [address], Ph. 12/24/2019 Degeneration of Lumbar Intervertebral Disc; Degeneration of Lumbosacral Intervertebral Disc; Displacement of Lumbar Intervertebral Disc without Myelopathy; Intervertebral Disc Disorder; Spondylosis without Myelopathy; Lumbosacral Spondylosis without Myelopathy; Lumbar Radiculopathy; Cervical Radiculopathy; Displacement of Cervical Intervertebral Disc without Myelopathy; Degeneration of Cervical Intervertebral Disc; Cervical Spondylosis without Myelopathy; Inflammation of Sacroiliac Joint; Myofascial Pain; Thoracic Radiculopathy; Displacement of Thoracic Intervertebral Disc without Myelopathy; Degeneration of Thoracic Intervertebral Disc; Thoracic Spondylosis without Myelopathy; Pain in Right Lower Limb Julia Alfredo Claros, [employer]ER: [address] [address], Ph. 11/12/2019 Degeneration of Lumbar Intervertebral Disc; Degeneration of Lumbosacral Intervertebral Disc; Displacement of Lumbar Intervertebral Disc without Myelopathy; Intervertebral Disc Disorder; Spondylosis without Myelopathy; Lumbosacral Spondylosis without Myelopathy; Lumbar Radiculopathy; Cervical Radiculopathy; Displacement of Cervical Intervertebral Disc without Myelopathy; Degeneration of Cervical Intervertebral Disc; Cervical Spondylosis without Myelopathy; Inflammation of Sacroiliac Joint; Myofascial Pain; Thoracic Radiculopathy; Displacement of Thoracic Intervertebral Disc without Myelopathy; Degeneration of Thoracic Intervertebral Disc; Thoracic Spondylosis without Myelopathy; Pain in Right Lower Limb Julia Carson [place], [employer]ER: [address] [facility] [address], [place] [address], Ph. 10/24/2019 Degeneration of Lumbar Intervertebral Disc; Degeneration of Lumbosacral Intervertebral Disc; Displacement of Lumbar Intervertebral Disc without Myelopathy; Intervertebral Disc Disorder; Spondylosis without Myelopathy; Lumbosacral Spondylosis without Myelopathy; Lumbar Radiculopathy; Cervical Radiculopathy; Displacement of Cervical Intervertebral Disc without Myelopathy; Degeneration of Cervical Intervertebral Disc; Cervical Spondylosis without Myelopathy; Inflammation of Sacroiliac Joint; Myofascial Pain; Thoracic Radiculopathy; Displacement of Thoracic Intervertebral Disc without Myelopathy; Degeneration of Thoracic Intervertebral Disc; Thoracic Spondylosis without Myelopathy; Pain in Right Lower Limb [facility] 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 10/04/2019 Degeneration of Lumbar Intervertebral Disc; Degeneration of Lumbosacral Intervertebral Disc; Displacement of Lumbar Intervertebral Disc without Myelopathy; Intervertebral Disc Disorder; Spondylosis without Myelopathy; Lumbosacral Spondylosis without Myelopathy; Lumbar Radiculopathy; Cervical Radiculopathy; Displacement of Cervical Intervertebral Disc without Myelopathy; Degeneration of Cervical Intervertebral Disc; Cervical Spondylosis without Myelopathy; Inflammation of Sacroiliac Joint; Myofascial Pain; Thoracic Radiculopathy; Displacement of Thoracic Intervertebral Disc without Myelopathy; Degeneration of Thoracic Intervertebral Disc; Thoracic Spondylosis without Myelopathy Julia Claros [employer]ER: [address] [address], Ph. 08/16/2019 Degeneration of Lumbar Intervertebral Disc; Degeneration of Lumbosacral Intervertebral Disc; Displacement of Lumbar Intervertebral Disc without Myelopathy; Intervertebral Disc Disorder; Spondylosis without Myelopathy; Lumbosacral Spondylosis without Myelopathy; Lumbar Radiculopathy; Cervical Radiculopathy; Displacement of Cervical Intervertebral Disc without Myelopathy; Degeneration of Cervical Intervertebral Disc; Cervical Spondylosis without Myelopathy; Inflammation of Sacroiliac Joint; Myofascial Pain; Thoracic Radiculopathy; Displacement of Thoracic Intervertebral Disc without Myelopathy; Degeneration of Thoracic Intervertebral Disc; Thoracic Spondylosis without Myelopathy Julia Claros [employer]IT[employer]ER: [address] [address], Ph. 07/26/2019 Lumbar Radiculopathy; Degeneration of Lumbar Intervertebral Disc; Degeneration of Lumbosacral Intervertebral Disc; Displacement of Lumbar Intervertebral Disc without Myelopathy; Intervertebral Disc Disorder; Spondylosis without Myelopathy; Lumbosacral Spondylosis without Myelopathy; Cervical Radiculopathy; Displacement of Cervical Intervertebral Disc without Myelopathy; Degeneration of Cervical Intervertebral Disc; Cervical Spondylosis without Myelopathy; Inflammation of Sacroiliac Joint; Myofascial Pain; Thoracic Radiculopathy; Displacement of Thoracic Intervertebral Disc without Myelopathy; Degeneration of Thoracic Intervertebral Disc; Thoracic Spondylosis without Myelopathy Enio Mayes MD: [id number] [address], [place] [address], Ph. 07/13/2019 Lumbar Radiculopathy; Degeneration of Lumbar Intervertebral Disc; Degeneration of Lumbosacral Intervertebral Disc; Displacement of Lumbar Intervertebral Disc without Myelopathy; Intervertebral Disc Disorder; Spondylosis without Myelopathy; Lumbosacral Spondylosis without Myelopathy; Cervical Radiculopathy; Displacement of Cervical Intervertebral Disc without Myelopathy; Degeneration of Cervical Intervertebral Disc; Cervical Spondylosis without Myelopathy; Inflammation of Sacroiliac Joint; Myofascial Pain; Thoracic Radiculopathy; Displacement of Thoracic Intervertebral Disc without Myelopathy; Degeneration of Thoracic Intervertebral Disc; Thoracic Spondylosis without Myelopathy Enio Mayes MD: [id number] [address], Ph. 07/03/2019 Degeneration of Lumbar Intervertebral Disc; Degeneration of Lumbosacral Intervertebral Disc; Displacement of Lumbar Intervertebral Disc without Myelopathy; Intervertebral Disc Disorder; Spondylosis without Myelopathy; Lumbosacral Spondylosis without Myelopathy; Lumbar Radiculopathy; Cervical Radiculopathy; Displacement of Cervical Intervertebral Disc without Myelopathy; Degeneration of Cervical Intervertebral Disc; Cervical Spondylosis without Myelopathy; Inflammation of Sacroiliac Joint; Myofascial Pain; Thoracic Radiculopathy; Displacement of Thoracic Intervertebral Disc without Myelopathy; Degeneration of Thoracic Intervertebral Disc; Thoracic Spondylosis without Myelopathy Julia Claros NP: [id number] [address], Ph. 06/06/2019 Thoracic Radiculopathy; Displacement of Thoracic Intervertebral Disc without Myelopathy; Degeneration of Thoracic Intervertebral Disc; Thoracic Spondylosis without Myelopathy; Degeneration of Lumbar Intervertebral Disc; Degeneration of Lumbosacral Intervertebral Disc; Displacement of Lumbar Intervertebral Disc without Myelopathy; Intervertebral Disc Disorder; Spondylosis without Myelopathy; Lumbosacral Spondylosis without Myelopathy; Lumbar Radiculopathy; Cervical Radiculopathy; Displacement of Cervical Intervertebral Disc without Myelopathy; Degeneration of Cervical Intervertebral Disc; Cervical Spondylosis without Myelopathy; Inflammation of Sacroiliac Joint; Myofascial Pain Enio Mayes MD: [id number] [phone], Ph. 05/24/2019 Degeneration of Lumbar Intervertebral Disc; Degeneration of Lumbosacral Intervertebral Disc; Displacement of Lumbar Intervertebral Disc without Myelopathy; Intervertebral Disc Disorder; Spondylosis without Myelopathy; Lumbosacral Spondylosis without Myelopathy; Lumbar Radiculopathy; Cervical Radiculopathy; Displacement of Cervical Intervertebral Disc without Myelopathy; Degeneration of Cervical Intervertebral Disc; Cervical Spondylosis without Myelopathy; Inflammation of Sacroiliac Joint; Myofascial Pain; Thoracic Radiculopathy; Displacement of Thoracic Intervertebral Disc without Myelopathy; Degeneration of Thoracic Intervertebral Disc; Thoracic Spondylosis without Myelopathy Julia Claros NP: [id number] [phone], Ph. 04/18/2019 Thoracic Radiculopathy; Displacement of Thoracic Intervertebral Disc without Myelopathy; Degeneration of Thoracic Intervertebral Disc; Thoracic Spondylosis without Myelopathy; Degeneration of Lumbar Intervertebral Disc; Degeneration of Lumbosacral Intervertebral Disc; Displacement of Lumbar Intervertebral Disc without Myelopathy; Intervertebral Disc Disorder; Spondylosis without Myelopathy; Lumbosacral Spondylosis without Myelopathy; Lumbar Radiculopathy; Cervical Radiculopathy; Displacement of Cervical Intervertebral Disc without Myelopathy; Degeneration of Cervical Intervertebral Disc; Cervical Spondylosis without Myelopathy; Inflammation of Sacroiliac Joint; Myofascial Pain Enio Mayes MD: [id number] [address], Ph. 04/16/2019 Degeneration of Lumbar Intervertebral Disc; Degeneration of Lumbosacral Intervertebral Disc; Displacement of Lumbar Intervertebral Disc without Myelopathy; Intervertebral Disc Disorder; Spondylosis without Myelopathy; Lumbosacral Spondylosis without Myelopathy; Lumbar Radiculopathy; Cervical Radiculopathy; Displacement of Cervical Intervertebral Disc without Myelopathy; Degeneration of Cervical Intervertebral Disc; Cervical Spondylosis without Myelopathy; Inflammation of Sacroiliac Joint; Myofascial Pain; Thoracic Radiculopathy; Displacement of Thoracic Intervertebral Disc without Myelopathy; Degeneration of Thoracic Intervertebral Disc; Thoracic Spondylosis without Myelopathy Julia Claros, [employer]: [id number] [address], Ph. 03/05/2019 Degeneration of Lumbar Intervertebral Disc; Degeneration of Lumbosacral Intervertebral Disc; Displacement of Lumbar Intervertebral Disc without Myelopathy; Intervertebral Disc Disorder; Spondylosis without Myelopathy; Lumbosacral Spondylosis without Myelopathy; Lumbar Radiculopathy; Cervical Radiculopathy; Displacement of Cervical Intervertebral Disc without Myelopathy; Degeneration of Cervical Intervertebral Disc; Cervical Spondylosis without Myelopathy; Inflammation of Sacroiliac Joint; Myofascial Pain Julia Claros [employer]: [id number] [address], Ph. 02/08/2019 Degeneration of Lumbar Intervertebral Disc; Degeneration of Lumbosacral Intervertebral Disc; Displacement of Lumbar Intervertebral Disc without Myelopathy; Intervertebral Disc Disorder; Spondylosis without Myelopathy; Lumbosacral Spondylosis without Myelopathy; Lumbar Radiculopathy; Cervical Radiculopathy; Displacement of Cervical Intervertebral Disc without Myelopathy; Degeneration of Cervical Intervertebral Disc; Cervical Spondylosis without Myelopathy; Inflammation of Sacroiliac Joint; Myofascial Pain Enio Mayes MD: [id number] [phone], Ph. 01/31/2019 Degeneration of Lumbar Intervertebral Disc; Degeneration of Lumbosacral Intervertebral Disc; Displacement of Lumbar Intervertebral Disc without Myelopathy; Intervertebral Disc Disorder; Spondylosis without Myelopathy; Lumbosacral Spondylosis without Myelopathy; Lumbar Radiculopathy; Cervical Radiculopathy; Displacement of Cervical Intervertebral Disc without Myelopathy; Degeneration of Cervical Intervertebral Disc; Cervical Spondylosis without Myelopathy; Inflammation of Sacroiliac Joint; Myofascial Pain Enio Mayes MD: [id number] [phone], Ph. 01/17/2019 Degeneration of Lumbar Intervertebral Disc; Degeneration of Lumbosacral Intervertebral Disc; Displacement of Lumbar Intervertebral Disc without Myelopathy; Intervertebral Disc Disorder; Spondylosis without Myelopathy; Lumbosacral Spondylosis without Myelopathy; Lumbar Radiculopathy; Cervical Radiculopathy; Displacement of Cervical Intervertebral Disc without Myelopathy; Degeneration of Cervical Intervertebral Disc; Cervical Spondylosis without Myelopathy; Inflammation of Sacroiliac Joint; Myofascial Pain Julia Claros, [employer]: [id number], [address], [place] [address], Ph. Social History Tobacco Smoking Status Former Smoker Vaccine List None recorded. Plan of Care Reminders Provider Appointments None recorded. Lab None recorded. Referral None recorded. Procedures None recorded. Surgeries None recorded. Imaging None recorded. Vitals 09/09/2021 03:30PM FOLLOW-UP Height Blood Pressure 5 ft 7 in 149/92 mm[Hg] 04/30/2021 09:00AM FOLLOW-UP Height Blood Pressure 5 ft 7 in 169/95 mm[Hg] 04/02/2021 01:00PM FOLLOW-UP Height Blood Pressure 5 ft 7 in 156/86 mm[Hg] 03/02/2021 09:30AM FOLLOW-UP Height Blood Pressure 5 ft 7 in 147/77 mm[Hg] 01/12/2021 11:00AM FOLLOW-UP Height Blood Pressure 5 ft 7 in 148/86 mm[Hg] 11/24/2020 11:15AM FOLLOW-UP Height Blood Pressure 5 ft 7 in 158/83 mm[Hg] 10/06/2020 04:00PM FOLLOW-UP Height Blood Pressure 5 ft 7 in 170/80 mm[Hg] 08/06/2020 10:00AM FOLLOW-UP Height Blood Pressure 5 ft 7 in 166/79 mm[Hg] 06/25/2020 09:00AM FOLLOW-UP Height Weight BMI Blood Pressure 5 ft 7 in 196 lbs 30.7 kg/m2 135/70 mm[Hg] 02/14/2020 09:45AM FOLLOW-UP Height Weight BMI Blood Pressure 5 ft 7 in 196 lbs 30.7 kg/m2 152/84 mm[Hg] 12/24/2019 09:15AM FOLLOW-UP Height Blood Pressure 5 ft 7 in 149/79 mm[Hg] 11/12/2019 03:15PM FOLLOW-UP Height Weight BMI Blood Pressure 5 ft 7 in 196 lbs 30.7 kg/m2 174/98 mm[Hg] 10/24/2019 02:45PM FOLLOW-UP Height Weight BMI Blood Pressure 5 ft 7 in 196 lbs 30.7 kg/m2 148/78 mm[Hg] 10/04/2019 04:00PM FOLLOW-UP Height Blood Pressure 5 ft 7 in 148/86 mm[Hg] 08/16/2019 02:15PM FOLLOW-UP Height Weight BMI Blood Pressure 5 ft 7 in 196 lbs 30.7 kg/m2 141/78 mm[Hg] 07/03/2019 09:00AM FOLLOW-UP Height Weight BMI Blood Pressure 5 ft 7 in 196 lbs 30.7 kg/m2 153/82 mm[Hg] 05/24/2019 09:00AM FOLLOW-UP Height Blood Pressure 5 ft 7 in 145/70 mm[Hg] 04/16/2019 09:15AM FOLLOW-UP Height Blood Pressure 5 ft 7 in 126/76 mm[Hg] 03/05/2019 09:00AM FOLLOW-UP Height Weight BMI Blood Pressure 5 ft 7 in 196 lbs 30.7 kg/m2 144/80 mm[Hg] 01/17/2019 10:45AM FOLLOW-UP Height Weight BMI Blood Pressure 5 ft 7 in 96 lbs 15 kg/m2 155/89 mm[Hg] 09/27/2018 Blood Pressure 134/72 mm[Hg] 08/30/2018 Blood Pressure 160/42 mm[Hg] 08/07/2018 Blood Pressure 168/95 mm[Hg] 07/19/2018 Blood Pressure 140/90 mm[Hg] 07/13/2018 Blood Pressure 136/85 mm[Hg] 06/01/2018 Weight BMI Blood Pressure 190 lbs 29.87 kg/m2 134/86 mm[Hg] 05/02/2018 Weight BMI Blood Pressure 190 lbs 29.87 kg/m2 133/76 mm[Hg] 04/04/2018 Weight BMI Blood Pressure 190 lbs 29.87 kg/m2 164/84 mm[Hg] 03/20/2018 Weight BMI Blood Pressure 190 lbs 29.87 kg/m2 132/82 mm[Hg] 02/13/2018 Weight BMI Blood Pressure 190 lbs 29.87 kg/m2 133/80 mm[Hg] 02/02/2018 Blood Pressure 151/87 mm[Hg] 01/19/2018 Blood Pressure 124/79 mm[Hg] 12/19/2017 Weight BMI Blood Pressure 207 lbs 32.54 kg/m2 143/81 mm[Hg] 11/07/2017 Weight BMI Blood Pressure 207 lbs 32.54 kg/m2 154/81 mm[Hg] 09/26/2017 Weight BMI Blood Pressure 207 lbs 32.54 kg/m2 155/87 mm[Hg] 08/25/2017 Weight BMI Blood Pressure 205 lbs 32.22 kg/m2 159/85 mm[Hg] 07/28/2017 Weight BMI Blood Pressure 208 lbs 32.70 kg/m2 141/87 mm[Hg] 06/16/2017 Blood Pressure 148/84 mm[Hg] 05/26/2017 Blood Pressure 170/98 mm[Hg] 05/13/2017 Blood Pressure 149/97 mm[Hg] 03/14/2017 Blood Pressure 148/95 mm[Hg] 02/28/2017 Blood Pressure 160/83 mm[Hg] 02/10/2017 Blood Pressure 158/88 mm[Hg] 02/03/2017 Blood Pressure 164/83 mm[Hg] 01/06/2017 Blood Pressure 131/83 mm[Hg] 12/16/2016 Blood Pressure 160/82 mm[Hg] 12/10/2016 Blood Pressure 154/80 mm[Hg] 10/04/2016 Blood Pressure 140/87 mm[Hg] 08/30/2016 Blood Pressure 136/80 mm[Hg] 07/21/2016 Blood Pressure 153/97 mm[Hg] 06/28/2016 Blood Pressure 147/83 mm[Hg] 06/18/2016 Blood Pressure 125/72 mm[Hg] 04/20/2016 Blood Pressure 155/81 mm[Hg] 04/09/2016 Blood Pressure 161/91 mm[Hg] 03/31/2016 Blood Pressure 152/80 mm[Hg] 02/19/2016 Blood Pressure 139/74 mm[Hg] 12/31/2015 Blood Pressure 155/88 mm[Hg] 12/08/2015 Blood Pressure 152/94 mm[Hg] 11/10/2015 Weight BMI Blood Pressure 193 lbs 30.34 kg/m2 132/82 mm[Hg] 10/01/2015 Blood Pressure 137/81 mm[Hg] 09/15/2015 Blood Pressure 145/76 mm[Hg] 09/08/2015 Blood Pressure 141/80 mm[Hg] 07/31/2015 Blood Pressure 137/81 mm[Hg] 07/14/2015 Blood Pressure 160/84 mm[Hg] 06/18/2015 Blood Pressure 159/96 mm[Hg] 06/02/2015 Blood Pressure 162/83 mm[Hg] 05/19/2015 Blood Pressure 149/70 mm[Hg] 05/08/2015 Blood Pressure 143/90 mm[Hg] 04/30/2015 Blood Pressure 147/86 mm[Hg] 02/26/2015 Blood Pressure 129/71 mm[Hg] 01/15/2015 Blood Pressure 141/81 mm[Hg] 12/12/2014 Blood Pressure 148/83 mm[Hg] 11/14/2014 Blood Pressure 149/92 mm[Hg] 10/29/2014 Blood Pressure 134/83 mm[Hg] 10/01/2014 Blood Pressure 145/82 mm[Hg] 09/16/2014 Blood Pressure 153/83 mm[Hg] 07/08/2014 Blood Pressure 128/83 mm[Hg] 05/08/2014 Blood Pressure 149/91 mm[Hg] 04/03/2014 Blood Pressure 133/77 mm[Hg] 03/28/2014 Blood Pressure 144/75 mm[Hg] 03/20/2014 Blood Pressure 143/88 mm[Hg] 02/18/2014 Blood Pressure 131/85 mm[Hg] 01/22/2014 Blood Pressure 153/90 mm[Hg] 12/26/2013 Blood Pressure 127/76 mm[Hg] 11/20/2013 Blood Pressure 144/81 mm[Hg] 10/23/2013 Blood Pressure 137/87 mm[Hg] 09/26/2013 Blood Pressure 137/93 mm[Hg] 08/27/2013 Blood Pressure 133/79 mm[Hg] 07/31/2013 Blood Pressure 133/80 mm[Hg] 04/30/2013 Weight BMI Blood Pressure 197.2 lbs 31.00 kg/m2 138/76 mm[Hg] 03/30/2013 Blood Pressure 145/92 mm[Hg] 03/13/2013 Weight BMI Blood Pressure 197.2 lbs 31.00 kg/m2 142/82 mm[Hg] 01/17/2013 Height Weight BMI Blood Pressure 5 ft 7 in 197.2 lbs 31.00 kg/m2 140/84 mm[Hg]
--- OUTSIDE RECORDS SUMMARY | 2021-10-14 06:15 | CCD ---
Author Author [facility] Organization [facility] Address Unknown Phone Unavailable Care Team Providers Care Train Braker Name Role Phone Heber Mayes MD Unavailable Unavailable Heber Mayes MD Unavailable Unavailable Heber Mayes MD Unavailable Unavailable Heber Mayes MD Unavailable Unavailable Heber Mayes MD Unavailable Unavailable Heber Mayes MD Unavailable Unavailable Heber Mayes MD Unavailable Unavailable Heber Mayes MD Unavailable Unavailable Heber Mayes MD Unavailable Unavailable Heber Mayes MD Unavailable Unavailable Heber Mayes MD Unavailable Unavailable Heber Mayes MD Unavailable Unavailable Heber Mayes MD Unavailable Unavailable Heber Mayes MD Unavailable Unavailable Heber Mayes MD Unavailable Unavailable Heber Mayes MD Unavailable Unavailable Heber Mayes MD Unavailable Unavailable Heber Mayes MD Unavailable Unavailable Heber Mayes MD Unavailable Unavailable Heber Mayes MD Unavailable Unavailable Heber Mayes MD Unavailable Unavailable Heber Mayes MD Unavailable Unavailable Heber Mayes MD Unavailable Unavailable Heber Mayes MD Unavailable Unavailable Heebr Mayes MD Unavailable Unavailable Heber Mayes MD Unavailable Unavailable Heber Mayes MD Unavailable Unavailable BolHeber zimmer MD Unavailable Unavailable Heber Mayes MD Unavailable Unavailable BolHeber zimmer MD Unavailable Unavailable BolHeber zimmer MD Unavailable Unavailable BolHeber zimmer MD Unavailable Unavailable Heber Mayes MD Unavailable Unavailable Heber Mayes MD Unavailable Unavailable BolHeber zimmer MD Unavailable Unavailable BolHeber zimmer MD Unavailable Unavailable BolHeber zimmer MD Unavailable Unavailable Bolgoran, Heber Steen MD Unavailable Unavailable BolHeber zimmer MD Unavailable Unavailable BolHeber zimmer MD Unavailable Unavailable Bolgoran, Heber Steen MD Unavailable Unavailable Bolgoran, Heber Steen MD Unavailable Unavailable BolHeber zimmer MD Unavailable Unavailable Sugey, Heber Steen MD Unavailable Unavailable Heber Mayes MD Unavailable Unavailable Heber Mayes MD Unavailable Unavailable Heber Mayes MD Unavailable Unavailable Bolgoran, Heber Steen MD Unavailable Unavailable BolHeber zimmer MD Unavailable Unavailable Evelio, P Lorri Unavailable Unavailable Evelio, P Lorri Unavailable Unavailable Evelio, P Lorri Unavailable Unavailable Evelio, P Lorri Unavailable Unavailable Evelio, P Lorri Unavailable Unavailable Evelio, P Lorri Unavailable Unavailable Evelio, P Lorri Unavailable Unavailable Evelio, P Lorri Unavailable Unavailable Evelio, P Lorri Unavailable Unavailable Evelio, P Lorri Unavailable Unavailable Evelio, P Lorri Unavailable Unavailable Evelio, P Lorri Unavailable Unavailable Evelio, P Lorri Unavailable Unavailable Evelio, P Lorri Unavailable Unavailable Evelio, P Lorri Unavailable Unavailable Evelio, P Lorri Unavailable Unavailable Evelio, P Lorri Unavailable Unavailable Evelio, P Lorri Unavailable Unavailable Evelio, P Lorri Unavailable Unavailable Evelio, P Lorri Unavailable Unavailable Evelio, P Lorri Unavailable Unavailable Evelio, P Lorri Unavailable Unavailable Evelio, P Lorri Unavailable Unavailable Evelio, P Lorri Unavailable Unavailable Evelio, P Lorri Unavailable Unavailable Evelio, P Lorri Unavailable Unavailable Evelio, P Lorri Unavailable Unavailable Evelio, P Lorri Unavailable Unavailable Evelio, P Lorri Unavailable Unavailable Evelio, P Lorri Unavailable Unavailable Evelio, P Lorri Unavailable Unavailable Evelio, P Lorri Unavailable Unavailable Evelio, P Lorri Unavailable Unavailable Evelio, P Lorri Unavailable Unavailable Evelio, P Lorri Unavailable Unavailable Evelio, P Lorri Unavailable Unavailable Evelio, P Lorri Unavailable Unavailable Evelio, P Lorri Unavailable Unavailable Evelio, P Lorri Unavailable Unavailable Evelio, P Lorri Unavailable Unavailable Evelio, P Lorri Unavailable Unavailable Evelio, P Lorri Unavailable Unavailable Evelio, P Lorri Unavailable Unavailable Evelio, P Lorri Unavailable Unavailable Evelio, P Lorri Unavailable Unavailable Evelio, P Lorri Unavailable Unavailable Evelio, P Lorri Unavailable Unavailable Evelio, P Lorri Unavailable Unavailable Evelio, P Lorri Unavailable Unavailable Evelio, P Lorri Unavailable Unavailable Evelio, P Lorri Unavailable Unavailable Evelio, P Lorri Unavailable Unavailable Evelio, P Lorri Unavailable Unavailable Evelio, P Lorri Unavailable Unavailable Evelio, P Lorri Unavailable Unavailable BRYDEN, A MELITON DO Unavailable Unavailable BRYDEN, A MELITON DO Unavailable Unavailable BRYDEN, A MELITON DO Unavailable Unavailable BRYDEN, A MELITON DO Unavailable Unavailable BRYDEN, A MELITON DO Unavailable Unavailable BRYDEN, A MELITON DO Unavailable Unavailable BRYDEN, A MELITON DO Unavailable Unavailable BRYDEN, A MELITON DO Unavailable Unavailable BRYDEN, A MELITON DO Unavailable Unavailable BRYDEN, A MELITON DO Unavailable Unavailable BRYDEN, A MELITON DO Unavailable Unavailable BRYDEN, A MELITON DO Unavailable Unavailable BRYDEN, A MELITON DO Unavailable Unavailable BRYDEN, A MELITON DO Unavailable Unavailable BRYDEN, A MELITON DO Unavailable Unavailable BRYDEN, A MELITON DO Unavailable Unavailable BRYDEN, A MELITON DO Unavailable Unavailable BRYDEN, A MELITON DO Unavailable Unavailable BRYDEN, A MELITON DO Unavailable Unavailable BRYDEN, A MELITON DO Unavailable Unavailable BRYDEN, A MELITON DO Unavailable Unavailable BRYDEN, A MELITON DO Unavailable Unavailable BRYDEN, A MELITON DO Unavailable Unavailable BRYDEN, A MELITON DO Unavailable Unavailable BRYDEN, A MELITON DO Unavailable Unavailable BRYDEN, A MELITON DO Unavailable Unavailable BRYDEN, A MELITON DO Unavailable Unavailable BRYDEN, A MELITON DO Unavailable Unavailable BRYDEN, A MELITON DO Unavailable Unavailable Fish, B Orly HERNANDEZ Unavailable Unavailable Fish, Agatha Villalba MD Unavailable Unavailable Fish, Agatha Villalba MD Unavailable Unavailable Fish, Agahta Villalba MD Unavailable Unavailable Fish, Agatha Villalba MD Unavailable Unavailable Fish, B Orly HERNANDEZ Unavailable Unavailable Fish, Agatha Villalba MD Unavailable Unavailable Fish, Agatha Villalba MD Unavailable Unavailable Fish, Agatha Villalba MD Unavailable Unavailable Malick, Agatha Villalba MD Unavailable Unavailable Malick, Agatha Villalba MD Unavailable Unavailable Agatha Teresa MD Unavailable Unavailable Malick, Agatha Villalba MD Unavailable Unavailable Fish, B Orly HERNANDEZ Unavailable Unavailable Fish B Orly HERNANDEZ Unavailable Unavailable Fish, Agatha Villalba MD Unavailable Unavailable Fish, Agatha Villalba MD Unavailable Unavailable Fish, Agatha Villalba MD Unavailable Unavailable Fish, Agatha Villalba MD Unavailable Unavailable Fish, Agatha Villalba MD Unavailable Unavailable Fish, Agatha Villalba MD Unavailable Unavailable Fish, Agatha Villalba MD Unavailable Unavailable Fish, Agatha Villalba MD Unavailable Unavailable Fish, Agatha Villalba MD Unavailable Unavailable Fish, Agatha Villalba MD Unavailable Unavailable Fish, Agatha Villalba MD Unavailable Unavailable Fish, Agatha Villalba MD Unavailable Unavailable Fish, Agatha Villalba MD Unavailable Unavailable Fish, Agatha Villalba MD Unavailable Unavailable Fish, Agatha Villalba MD Unavailable Unavailable Fish, Agatha Villalba MD Unavailable Unavailable Fish, Agatha Villalba MD Unavailable Unavailable Fish, Agatha Villalba MD Unavailable Unavailable Fish, Agatha Villalba MD Unavailable Unavailable Fish, Agatha Villalba MD Unavailable Unavailable Fish, Agatha Villalba MD Unavailable Unavailable Fish, Agatha Villalba MD Unavailable Unavailable Fish, Agatha Villalba MD Unavailable Unavailable Fish, Agatha Villalba MD Unavailable Unavailable Fish, Agatha Villalba MD Unavailable Unavailable Fish, Agatha Villalba MD Unavailable Unavailable Fish, Agatha Villalba MD Unavailable Unavailable Fish, Agatha Villalba MD Unavailable Unavailable Fish, Agatha Villalba MD Unavailable Unavailable Fish, Agatha Villalba MD Unavailable Unavailable Fish, Agatha Villalba MD Unavailable Unavailable Fish, Agatha Villalba MD Unavailable Unavailable Fish, Agatha Villalba MD Unavailable Unavailable Fish, Agatha Villalba MD Unavailable Unavailable Fish, Agatha Villalba MD Unavailable Unavailable Fish, Agatha Villalba MD Unavailable Unavailable Fish, Agatha Villalba MD Unavailable Unavailable Fish, Agatha Villalba MD Unavailable Unavailable Fish, Agatha Villalba MD Unavailable Unavailable Fish, Agatha Villalba MD Unavailable Unavailable Fish, Agatha Villalba MD Unavailable Unavailable Fish, Agatha Villalba MD Unavailable Unavailable Fish, Agatha Villalba MD Unavailable Unavailable Fish, Agatha Villalba MD Unavailable Unavailable Fish, Agatha Villalba MD Unavailable Unavailable Fish, Agatha Villalba MD Unavailable Unavailable Fish, Agatha Villalba MD Unavailable Unavailable Fish, Agatha Villalba MD Unavailable Unavailable Fish, Agatha Villalba MD Unavailable Unavailable Fish, Agatha Villalba MD Unavailable Unavailable Jumalon, M Julia ASPHALT DISTRIBUTOR OPERATOR Unavailable Unavailable Jumalon, M Julia ASPHALT DISTRIBUTOR OPERATOR Unavailable Unavailable Jumalon, M Julia ASPHALT DISTRIBUTOR OPERATOR Unavailable Unavailable Jumalon, M Julia ASPHALT DISTRIBUTOR OPERATOR Unavailable Unavailable Jumalon, M Julia ASPHALT DISTRIBUTOR OPERATOR Unavailable Unavailable Jumalon, M Julia ASPHALT DISTRIBUTOR OPERATOR Unavailable Unavailable Jumalon, M Julia ASPHALT DISTRIBUTOR OPERATOR Unavailable Unavailable Jumalon, M Julia ASPHALT DISTRIBUTOR OPERATOR Unavailable Unavailable Jumalon, M Julia ASPHALT DISTRIBUTOR OPERATOR Unavailable Unavailable Jumalon, M Julia ASPHALT DISTRIBUTOR OPERATOR Unavailable Unavailable Jumalon, M Julia ASPHALT DISTRIBUTOR OPERATOR Unavailable Unavailable Jumalon, M Julia ASPHALT DISTRIBUTOR OPERATOR Unavailable Unavailable Jumalon, M Julia ASPHALT DISTRIBUTOR OPERATOR Unavailable Unavailable Jumalon, M Julia ASPHALT DISTRIBUTOR OPERATOR Unavailable Unavailable Jumalon, M Julia ASPHALT DISTRIBUTOR OPERATOR Unavailable Unavailable Jumalon, M Julia ASPHALT DISTRIBUTOR OPERATOR Unavailable Unavailable Jumalon, M Julia ASPHALT DISTRIBUTOR OPERATOR Unavailable Unavailable Jumalon, M Julia ASPHALT DISTRIBUTOR OPERATOR Unavailable Unavailable Jumalon, M Julia ASPHALT DISTRIBUTOR OPERATOR Unavailable Unavailable Jumalon, M Julia ASPHALT DISTRIBUTOR OPERATOR Unavailable Unavailable Jumalon, M Julia ASPHALT DISTRIBUTOR OPERATOR Unavailable Unavailable Jumalon, M Julia ASPHALT DISTRIBUTOR OPERATOR Unavailable Unavailable Jumalon, M Julia ASPHALT DISTRIBUTOR OPERATOR Unavailable Unavailable Jumalon, M Julia ASPHALT DISTRIBUTOR OPERATOR Unavailable Unavailable Jumalon, M Julia ASPHALT DISTRIBUTOR OPERATOR Unavailable Unavailable Jumalon, M Julia ASPHALT DISTRIBUTOR OPERATOR Unavailable Unavailable Jumalon, M Julia ASPHALT DISTRIBUTOR OPERATOR Unavailable Unavailable Jumalon, M Julia ASPHALT DISTRIBUTOR OPERATOR Unavailable Unavailable Jumalon, M Julia ASPHALT DISTRIBUTOR OPERATOR Unavailable Unavailable Jumalon, M Julia ASPHALT DISTRIBUTOR OPERATOR Unavailable Unavailable KOSTIV, SEDRICK Unavailable Unavailable Re-disclosure Warning The records that you are about to access may contain information from federally-assisted alcohol or drug abuse programs. If such information is present, then the following federally mandated warning applies: This information has been disclosed to you from records protected by federal confidentiality rules (42 CFR part 2). The federal rules prohibit you from making any further disclosure of this information unless further disclosure is expressly permitted by the written consent of the person to whom it pertains or as otherwise permitted by 42 CFR part 2. A general authorization for the release of medical or other information is NOT sufficient for this purpose. The Federal rules restrict any use of the information to criminally investigate or prosecute any alcohol or drug abuse patient.The records that you are about to access may contain highly sensitive health information, the redisclosure of which is protected by Article 27-F of the [facility] Public Health law. If you continue you may have access to information: Regarding HIV / AIDS; Provided by facilities licensed or operated by the [facility] Office of Mental Health; or Provided by the [facility] Office for People With Developmental Disabilities. If such information is present, then the following [facility] mandated warning applies: This information has been disclosed to you from confidential records which are protected by state law. State law prohibits you from making any further disclosure of this information without the specific written consent of the person to whom it pertains, or as otherwise permitted by law. Any unauthorized further disclosure in violation of state law may result in a fine or correction sentence or both. A general authorization for the release of medical or other information is NOT sufficient authorization for further disc losure. Family History Family Member Name Family Member Gender Family Member Status Date o f Status Description Data Source(s) Unknown Male Problem MEDENT ([facility]) Unknown Male Problem MEDENT ([facility] ) Encounters Encounter Providers Location Date Indications Data Source(s ) Julia Claros, PARTS EXPEDITER: [address] [facility] [address], [place] [address], Ph. Attender: Julia Claros [facility] 09/09/2021 12:00:00 AM EDT ATHE NA ([facility]) Unknown [id number] [facility] [address] 05/11/2021 12:00:00 AM EDT eCW1 ([facility]) Enio Mayes MD: [address] [facility] [address] [place] [phone], Ph. Attender: Enio Mayes MD [facility] 05/08/2021 12:00:00 AM EDT NORA ([facility]) Enio Mayes MD: [address] [facility] [address], [place] [address], Ph. Attender: Enio Mayes MD [facility] 05/08/2021 12:00:00 AM EDT NORA ([facility]) Enio Mayes MD: [address] [facility] [address] [address], Ph. [phone] Attender: Enio Mayes MD [place] - [facility] 05/04/2021 12:00:00 AM EDT NORA ([facility]) Enio Mayes MD: [address], [place] [address], Ph. [phone] Attender: Enio Mayes MD [place] [facility] 05/04/2021 12:00:00 AM EDT NORA ([facility]) Julia Claros, PARTS EXPEDITER: [address], [place] [address], Ph. Attender: Julia Seraketan [facility] 04/30/2021 12:00:00 AM EDT ATHE NA ([facility]) Julia Fuentes Chelaxiao, PARTS EXPEDITER: [address], [place] [address], Ph. Attender: Julia Claros [facility] - [facility] 04/30/2021 12:00:00 AM EDT ATHE NA ([facility]) Julia Claros, PARTS EXPEDITER: [address], [place] [address], Ph. Attender: Julia Chelacashketan [facility] - [facility] 04/30/2021 12:00:00 AM EDT ATHE NA ([facility]) Jluia Fuentes Chelaxiao, PARTS EXPEDITER: [address], [place] [address], Ph. Attender: Julia Hyacinth [facility] - [facility] 04/02/2021 12:00:00 AM EDT ATHE NA ([facility]) Julia Claros, PARTS EXPEDITER: [address], [address], [place] [address], Ph. Attender: Julia Claros [facility] - [facility] 04/02/2021 12:00:00 AM EDT ATHE NA ([facility]) Julia Claros, PARTS EXPEDITER: [address], [address], [place] [address], Ph. Attender: Julia Claros [facility] - [facility] 04/02/2021 12:00:00 AM EDT ATHE NA ([facility]) Julia Claros, PARTS EXPEDITER: [address], [address], [place] [address], Ph. Attender: Julia Claros [facility] - [facility] 04/02/2021 12:00:00 AM EDT ATHE NA ([facility]) Enio Mayes MD: [address], [place] [address], Ph. Attender: Enio Mayes MD [place] [facility] 03/19/2021 12:00:00 AM EDT NORA ([facility]) Enoi Mayes MD: [address], [address], [place] [address], Ph. Attender: Enio Mayes MD [place] [facility] 03/19/2021 12:00:00 AM EDT NORA ([facility]) Enio Mayes MD: [address], [place] [address], Ph. Attender: Enio Mayes MD [place] [facility] 03/19/2021 12:00:00 AM EDT NORA ([facility]) Enio Mayes MD: [address], [address], [place] [address], Ph. Attender: Enio Mayes MD [place] [facility] 03/19/2021 12:00:00 AM EDT NORA ([facility]) Enio Mayes MD: [address], [address], [place] [address], Ph. Attender: Enio Mayes MD [place] [facility] 03/19/2021 12:00:00 AM EDT NORA ([facility]) Outpatient [id number] [facility] [address] 03/18/2021 12:00:00 AM EDT [facility] ([facility]) Enio Mayes MD: [address], [place] [address], Ph. [phone] Attender: Enio Mayes MD [place] [facility] 03/16/2021 12:00:00 AM EDT NORA ([facility]) Enio Mayes MD: [address], [address], [place] [address], Ph. [phone] Attender: Enio Mayes MD [place] [facility] 03/16/2021 12:00:00 AM EDT NORA ([facility]) Enio Mayes MD: [address], [place] [address], Ph. [phone] Attender: Enio Mayes MD [place] [facility] 03/16/2021 12:00:00 AM EDT NORA ([facility]) Enio Mayes MD: [address], [place] [address], Ph. [phone] Attender: Enio Mayes MD [place] [facility] 03/16/2021 12:00:00 AM EDT NORA ([facility]) Enio Mayes MD: [address], [place] [address], Ph. [phone] Attender: Enio Mayes MD [place] [facility] 03/16/2021 12:00:00 AM EDT NORA ([facility]) Enio Mayes MD: [address], [address], [place] [address], Ph. [phone] Attender: Enio Mayes MD [place] [facility] 03/16/2021 12:00:00 AM EDT NORA ([facility]) Julia Claros, PARTS EXPEDITER: [address], [place] [address], Ph. Attender: Julia Claros [facility] - [facility] 03/02/2021 12:00:00 AM EDT ATHSabino NA ([facility]) Julia Claros, PARTS EXPEDITER: [address], [place] [address], Ph. Attender: Julia Claros [facility] - [facility] 03/02/2021 12:00:00 AM EDT ATHE NA ([facility]) Julia Claros, PARTS EXPEDITER: [address], [place] [address], Ph. Attender: Julia Claros [facility] - [facility] 03/02/2021 12:00:00 AM EDT ATHE NA ([facility]) Julia Claros, PARTS EXPEDITER: [address], [place] [address], Ph. Attender: Julia Claros [facility] - [facility] 03/02/2021 12:00:00 AM EDT ATHE NA ([facility]) Julia Claros, PARTS EXPEDITER: [address], [place] [address], Ph. Attender: Julia Claros [facility] - [facility] 03/02/2021 12:00:00 AM EDT ATHE NA ([facility]) Julia Claros, PARTS EXPEDITER: [address], [place] [address], Ph. Attender: Julia Claros [facility] - [facility] 03/02/2021 12:00:00 AM EDT ATHE NA ([facility]) Julia Claros, PARTS EXPEDITER: [address], [place] [address], Ph. Attender: Julia Claros [facility] - [facility] 03/02/2021 12:00:00 AM EDT ATHE NA ([facility]) Julia Claros, PARTS EXPEDITER: [address], [place] [address], Ph. Attender: Julia Claros [facility] - [facility] 01/12/2021 12:00:00 AM EST ATHE NA ([facility]) Julia Claros, PARTS EXPEDITER: [address], [place] [address], Ph. Attender: Julia Claros [facility] - [facility] 01/12/2021 12:00:00 AM EST ATHE NA ([facility]) Julia Claros, PARTS EXPEDITER: [address], [place] [address], Ph. Attender: Julia Claros [facility] - [facility] 01/12/2021 12:00:00 AM EST ATHE NA ([facility]) Julia Claros, PARTS EXPEDITER: [address], [place] [address], Ph. Attender: Julia Claros [facility] - [facility] 01/12/2021 12:00:00 AM EST ATHE NA ([facility]) Julia Claros, PARTS EXPEDITER: [address], [facility] [place] [address], Ph. Attender: Julia Claros [facility] - [facility] 01/12/2021 12:00:00 AM EST ATHE NA ([facility]) Julia Claros, PARTS EXPEDITER: [address], [place] [address], Ph. Attender: Julia Claros [facility] - [facility] 01/12/2021 12:00:00 AM EST ATHE NA ([facility]) Julia Claros, PARTS EXPEDITER: [address], [place] [address], Ph. Attender: Julia Claros [facility] - [facility] 01/12/2021 12:00:00 AM EST ATHE NA ([facility]) Julia Claros, PARTS EXPEDITER: [address], [place] [address], Ph. Attender: Julia Hyacinth ASPHALT DISTRIBUTOR OPERATOR [place] - [facility] 01/12/2021 12:00:00 AM EST ATHE NA ([facility]) Enio Mayes MD: [address], [address], [place] [address], Ph. Attender: Enio Mayes MD [place] - [facility] 12/31/2020 12:00:00 AM EST NORA ([facility]) Enio Mayes MD: [address], [address], [place] [address], Ph. Attender: Enio Mayes MD [place] - [facility] 12/31/2020 12:00:00 AM EST NORA ([facility]) Enio Mayes MD: [address], [address], [place] [address], Ph. Attender: Enio Mayes MD [place] - [facility] [facility] 12/31/2020 12:00:00 AM EST NORA ([facility]) Enio Mayes MD: [address], [address], [place] [address], Ph. Attender: Enio Mayes [place] [facility] 12/31/2020 12:00:00 AM EST NORA ([facility]) Enio Mayes MD: [address], [address], [place] [address], Ph. Attender: Enio Mayes [place] [facility] 12/31/2020 12:00:00 AM EST NORA ([facility]) Enio Mayes MD: [address], [address], [place] [address], Ph. Attender: Enio Mayes [place] [facility] 12/31/2020 12:00:00 AM EST NORA ([facility]) Enio Mayes MD: [address], [place] [address], Ph. Attender: Enio Mayes [place] [facility] 12/31/2020 12:00:00 AM EST NORA ([facility]) Enio Mayes MD: [address], [address], [place] [address], Ph. Attender: Enio LAY - [facility] 12/31/2020 12:00:00 AM EST NORA ([facility]) Enio Mayes MD: [address], [address], [place] [address], Ph. Attender: Enio LAY - [facility] 12/31/2020 12:00:00 AM EST NORA ([facility]) Enio Mayes MD: [address], [place] [address], Ph. [phone] Attender: Enio LAY - [facility] 12/26/2020 12:00:00 AM EST NORA ([facility]) Enio Mayes MD: [address], [address], [place] [address], Ph. [phone] Attender: Enio LAY - [facility] 12/26/2020 12:00:00 AM EST NORA ([facility]) Enio Mayes MD: [address], [address], [place] [address], Ph. [phone] Attender: Enio LAY - [facility] 12/26/2020 12:00:00 AM EST NORA ([facility]) Enio Mayes MD: [address], [place] [address], Ph. [phone] Attender: Enio Mayes [place] [facility] 12/26/2020 12:00:00 AM EST NORA ([facility]) Enio Mayes MD: [address], [address], [place] [address], Ph. [phone] Attender: Enio Mayes [place] [facility] 12/26/2020 12:00:00 AM EST NORA ([facility]) Enio Mayes MD: [address], [place] [address], Ph. [phone] Attender: Enio Mayes [place] [facility] 12/26/2020 12:00:00 AM EST NORA ([facility]) Enio Mayes MD: [address], [place] [address], Ph. [phone] Attender: Enio Mayes [place] [facility] 12/26/2020 12:00:00 AM EST NORA ([facility]) Enio Mayes MD: [address], [address], [place] [address], Ph. [phone] Attender: Enio Mayes MD [place] [facility] 12/26/2020 12:00:00 AM EST NORA ([facility]) Enio Mayes MD: [address], [place] [address], Ph. [phone] Attender: Enio Mayes MD [place] [facility] 12/26/2020 12:00:00 AM EST NORA ([facility]) Enio Mayes MD: [address], [address], [place], [place] [address], Ph. [phone] Attender: Enio Mayes MD [place] [facility] 12/26/2020 12:00:00 AM EST NORA ([facility]) Outpatient Attender: MELITON Akers/Zuri/Monty/Louis ndl 12/25/2020 01:30:00 PM EST MEDENT ([facility]) Enio Mayes MD: [address], [address], [place], [place] [address], Ph. Attender: Enio Mayes [place] [facility] 12/18/2020 12:00:00 AM EST NORA ([facility]) Enio Mayes MD: [address], [address], [place] [address], Ph. Attender: Enio LAY - [facility] 12/18/2020 12:00:00 AM EST NORA ([facility]) Enio Mayes MD: [address], [place] [address], Ph. Attender: Enio LAY - [facility] 12/18/2020 12:00:00 AM EST NORA ([facility]) Enio Mayes MD: [address], [address], [place], [place] [address], Ph. Attender: Enio LAY - [facility] 12/18/2020 12:00:00 AM EST NORA ([facility]) Enio Mayes MD: [address], [address], [place] [address], Ph. Attender: Enio [place]es [place] [facility] 12/18/2020 12:00:00 AM EST NORA ([facility]) Enio Mayes MD: [address], [place] [address], Ph. Attender: Enio Mayes [place] [facility] 12/18/2020 12:00:00 AM EST NORA ([facility]) Enio Mayes MD: [address], [address], [place] [address], Ph. Attender: Enio Mayes MD [place] - [facility] 12/18/2020 12:00:00 AM EST NORA ([facility]) Enio Mayes MD: [address], [address], [place] [address], Ph. Attender: Enio LAY - [facility] 12/18/2020 12:00:00 AM EST NORA ([facility]) Enio Mayes MD: [address], [place] [address], Ph. Attender: Enio LAY - [facility] 12/18/2020 12:00:00 AM EST NORA ([facility]) Enio Mayes MD: [address], [address], [place] [address], Ph. Attender: Enio LAY - [facility] 12/18/2020 12:00:00 AM EST NORA ([facility]) Enio Mayes MD: [address], [address], [place] [address], Ph. Attender: Enio Mayes [place] - [facility] 12/18/2020 12:00:00 AM EST NORA ([facility]) Enio Mayes MD: [address], [address], [place] [address], Ph. [phone] Attender: Enio Mayes MD [place] [facility] 12/15/2020 12:00:00 AM EST NORA ([facility]) Enio Mayes MD: [address], [address], [place] [address], Ph. [phone] Attender: Enio Mayes [place] - [facility] 12/15/2020 12:00:00 AM EST NORA ([facility]) Enio Mayes MD: [address], [address], [place] [address], Ph. [phone] Attender: Enio Mayes MD [place] - [facility] 12/15/2020 12:00:00 AM EST NORA ([facility]) Enio Mayes MD: [address], [address], [place] [address], Ph. [phone] Attender: Enio Mayes MD [place] - [facility] 12/15/2020 12:00:00 AM EST NORA ([facility]) Enio Mayes MD: [address], [address], [place] [address], Ph. [phone] Attender: Enio Mayes MD [place] - [facility] 12/15/2020 12:00:00 AM EST NORA ([facility]) Enio Mayes MD: [address], [address], [place] [address], Ph. [phone] Attender: Enio Mayes MD [place] - [facility] 12/15/2020 12:00:00 AM EST NORA ([facility]) Enio Mayes MD: [address], [place] [address], Ph. [phone] Attender: Enio Mayes MD [place] - [facility] 12/15/2020 12:00:00 AM EST NORA ([facility]) Enio Mayes MD: [address], [address], [place] [address], Ph. [phone] Attender: Enio Mayes MD [place] - [facility] 12/15/2020 12:00:00 AM EST NORA ([facility]) Enio Mayes MD: [address], [place] [address], Ph. [phone] Attender: Enio Mayes MD [place] - [facility] 12/15/2020 12:00:00 AM EST NORA ([facility]) Enio Mayes MD: [address], [place] [address], Ph. [phone] Attender: Enio Mayes MD [place] - [facility] 12/15/2020 12:00:00 AM EST NORA ([facility]) Enio Mayes MD: [address], [place] [address], Ph. [phone] Attender: Enio Mayes MD [place] - [facility] 12/15/2020 12:00:00 AM EST NORA ([facility]) Enio Mayes MD: [address], [place] [address], Ph. [phone] Attender: Enio Mayes MD [place] - [facility] 12/15/2020 12:00:00 AM EST NORA ([facility]) Julia Calros, PARTS EXPEDITER: [address], [address], [place] [address], Ph. Attender: Julia Claros [facility] - [facility] 11/24/2020 12:00:00 AM EST ATHE NA ([facility]) Julia Claros, [employer]S EXPEDITER: [address], [address], [place] [address], Ph. Attender: Julia Claros [facility] - [facility] 11/24/2020 12:00:00 AM EST ATHE NA ([facility]) Julia Claros, PARTS EXPEDITER: [address], [place] [address], Ph. Attender: Julia Claros [facility] - [facility] 11/24/2020 12:00:00 AM EST ATHE NA ([facility]) Julia Claros, PARTS EXPEDITER: [address], [address], [place] [address], Ph. Attender: Julia Claros [facility] - [facility] 11/24/2020 12:00:00 AM EST ATHE NA ([facility]) Julia Claros, PARTS EXPEDITER: [address], [address], [place] [address], Ph. Attender: Julia Claros [facility] - [facility] 11/24/2020 12:00:00 AM EST ATHE NA ([facility]) Julia Claros, PARTS EXPEDITER: [address], [place] [address], Ph. Attender: Julia Claros [facility] - [facility] 11/24/2020 12:00:00 AM EST ATHE NA ([facility]) Julia Claros, PARTS EXPEDITER: [address], [place] [address], Ph. Attender: Julia Claros [facility] - [facility] 11/24/2020 12:00:00 AM EST ATHE NA ([facility]) Julia Claros, [employer]S EXPEDITER: [address], [place] [address], Ph. Attender: Julia Claros [facility] - [facility] 11/24/2020 12:00:00 AM EST ATHE NA ([facility]) Julia Claros, PARTS EXPEDITER: [address], [place] [address], Ph. Attender: Julia Claros [facility] - [facility] 11/24/2020 12:00:00 AM EST ATHE NA ([facility]) Julia Claros, PARTS EXPEDITER: [address], [place] [address], Ph. Attender: Julia Claros [facility] - [facility] 11/24/2020 12:00:00 AM EST ATHE NA ([facility]) Julia Claros, PARTS EXPEDITER: [address], [place] [address], Ph. Attender: Julia Claros [facility] - [facility] 11/24/2020 12:00:00 AM EST ATHE NA ([facility]) Julia Claros, PARTS EXPEDITER: [address], [place] [address], Ph. Attender: Julia Claros [facility] - [facility] 11/24/2020 12:00:00 AM EST ATHE NA ([facility]) Julia Claros, PARTS EXPEDITER: [address], [place] [address], Ph. Attender: Julia Claros [facility] - [facility] 11/24/2020 12:00:00 AM EST ATHE NA ([facility]) Outpatient Attender: Orly Teresa MD Physical Therapy 11/13 09:00:00 AM EST MEDENT ([facility] ) Unknown [address] [facility] [address] 11/13/2020 12:00:00 AM EST eC1 ([facility]) Outpatient Attender: Lorri Chavez: Lorri HurtConsultant: Lorri ORANTES 10/14/2020 01:22:18 PM EST [facility] Julia Claros, PARTS EXPEDITER: [address], [place] [address], Ph. Attender: Julia Claros [facility] - [facility] 10/06/2020 12:00:00 AM EST ATHE NA ([facility]) Julia Claros, PARTS EXPEDITER: [address], [place] [address], Ph. Attender: Julia Claros [facility] - [facility] 10/06/2020 12:00:00 AM EST ATHE NA ([facility]) Julia Claros, PARTS EXPEDITER: [address], [place] [address], Ph. Attender: Julia Claros [facility] - [facility] 10/06/2020 12:00:00 AM EST ATHE NA ([facility]) Julia Claros, PARTS EXPEDITER: [address], [place] [address], Ph. Attender: Julia Claros [facility] - [facility] 10/06/2020 12:00:00 AM EST ATHE NA ([facility]) Julia Claros, PARTS EXPEDITER: [address], [place] [address], Ph. Attender: Julia Claros [facility] 10/06/2020 12:00:00 AM EST ATHE NA ([facility]) Julia Claros, PARTS EXPEDITER: [address], [place] [address], Ph. Attender: Julia Claros [facility] 10/06/2020 12:00:00 AM EST ATHE NA ([facility]) Julia Claros, PARTS EXPEDITER: [address], [place] [address], Ph. Attender: Julia Claros [facility] 10/06/2020 12:00:00 AM EST ATHE NA ([facility]) Julia Claros, PARTS EXPEDITER: [address], [place] [address], Ph. Attender: Julia Claros [facility] - [facility] 10/06/2020 12:00:00 AM EST ATHE NA ([facility]) Julia Claros, PARTS EXPEDITER: [address], [address], [place] [address], Ph. Attender: Julia Claros [facility] - [facility] 10/06/2020 12:00:00 AM EST ATHE NA ([facility]) Julia Claros, PARTS EXPEDITER: [address], [place] [address], Ph. Attender: Julia Claros [facility] - [facility] 10/06/2020 12:00:00 AM EST ATHE NA ([facility]) Julia Claros, PARTS EXPEDITER: [address], [place] [address], Ph. Attender: Julia Claros [facility] - [facility] 10/06/2020 12:00:00 AM EST ATHE NA ([facility]) Julia Claros, PARTS EXPEDITER: [address], [place] [address], Ph. Attender: Julia Claros [facility] - [facility] 10/06/2020 12:00:00 AM EST ATHE NA ([facility]) Julia Claros, PARTS EXPEDITER: [address], [place] [address], Ph. Attender: Julia Claros [facility] - [facility] 10/06/2020 12:00:00 AM EST ATHE NA ([facility]) Julia Claros, PARTS EXPEDITER: [address], [place] [address], Ph. Attender: Julia Claros [facility] - [facility] 10/06/2020 12:00:00 AM EST ATHE NA ([facility]) Outpatient [address] [facility] [place] [address] 09/12/2020 12:00:00 AM EDT eCW1 ([facility]) Outpatient Referrer: Lorri HANPAT 0 10:04:48 AM EDT - 09/10/2020 10:04:53 AM EDT [facility] Outpatient Attender: Lorri Gayferrer: Lorri CANTU 09/02/2020 12:00:00 AM EDT - 09/02/2020 10:32:15 AM EDT [facility] Inpatient Attender: Lorri Thomasdmitter: Lorri HurtReferrer: SEDRICK ESPAÑA [id number] 08/25/2020 12:00:44 PM EDT - 09/16/2020 01:09:00 PM EDT [facility] Patient discharged. Immunizations Vaccine Date Status Description Data Source(s) COVID-19 VACCINE Moderna 09/23/2021 12:00:00 AM EDT completed [facility] Vaccine Series Complete: NOThis Data was Submitted to [facility] Via [email or web address]. Medications Medication Brand Name Start Date Product Form Dose Route Admi nistrative Instructions Pharmacy Instructions Status Indications Reaction Description Data Source(s) 100 mcg/0.5 mL 09/23/2021 12:00:00 AM EDT suspension 0 INJECT DIRECTED (THIRD DOSE) INJECT DIRECTED (THIRD DOSE) SOLD: 09/23/2021 [facility] 137 mcg 09/19/2021 12:00:00 AM EDT tablet 90 TAKE ONE TABLET BY MOUTH EVERY DAY TAKE ONE TABLET BY MOUTH EVERY DAY SOLD: 09/23/2021 [facility] dorzolamide 20 MG/ML / Timolol 5 MG/ML Ophthalmic Solu tion 22.3-6.8 mg/mL DORZOLAMIDE HCL/TIMOLOL MALEAT 09/17/2021 12:00:00 AM EDT drops 10 INSTILL 1 DROP INTO BOTH EYES 2 TIMES DAILY INSTILL 1 DROP INTO BOTH EYES 2 TIMES DAILY SOLD: 09/19/2021 [facility] 200 mg 09/14/2021 12:00:00 AM EDT capsule 90 TAKE ONE CAPSULE BY MOUTH THREE TIMES A DAY MAXIMUM DAILY DOSE = 3 TAKE ONE CAPSULE BY MOUTH THREE TIMES A DAY MAXIMUM DAILY DOSE = 3 SOLD: 09/15/2021 [facility] 10-325 mg 09/14/2021 12:00:00 AM EDT tablet 90 TAKE ONE TABLET BY MOUTH EVERY 8 HOURS NEEDED MAXIMUM DAILY DOSE = 3 TAKE ONE TABLET BY MOUTH EVERY 8 HOURS NEEDED MAXIMUM DAILY DOSE = 3 SOLD: 09/15/2021 [facility] 10-325 mg 08/31/2021 12:00:00 AM EDT tablet 45 TAKE ONE TABLET BY MOUTH EVERY 8 HOURS NEEDED MAXIMUM DAILY DOSE = 3 TABLET TAKE ONE TABLET BY MOUTH EVERY 8 HOURS NEEDED MAXIMUM DAILY DOSE = 3 TABLET SOLD: 08/31/2021 [facility] 200 mg 08/31/2021 12:00:00 AM EDT capsule 45 TAKE ONE CAPSULE BY MOUTH THREE TIMES A DAY MAXIMUM DAILY DOSE = 3 CAPSULES TAKE ONE CAPSULE BY MOUTH THREE TIMES A DAY MAXIMUM DAILY DOSE = 3 CAPSULES SOLD: 08/31/2021 [facility] 20 mg 08/21/2021 12:00:00 AM EDT tablet 90 TAKE ONE TABLET BY MOUTH EVERY DAY TAKE ONE TABLET BY MOUTH EVERY DAY SOLD: 08/24/2021 [facility] 40 mg 08/20/2021 12:00:00 AM EDT tablet 90 TAKE ONE TABLET BY MOUTH IN THE EVENING TAKE ONE TABLET BY MOUTH IN THE EVENING SOLD: 08/20/2021 [facility] 150 mg 08/20/2021 12:00:00 AM EDT capsule 21 TAKE ONE CAPSULE BY MOUTH THREE TIMES A DAY MAXIMUM DAILY DOSE = 3 CAPSULES TAKE ONE CAPSULE BY MOUTH THREE TIMES A DAY MAXIMUM DAILY DOSE = 3 CAPSULES SOLD: 08/20/2021 [facility] 200 mg 05/13/2021 12:00:00 AM EDT capsule 90 TAKE ONE CAPSULE BY MOUTH THREE TIMES A DAY MAXIMUM DAILY DOSE = 3 TAKE ONE CAPSULE BY MOUTH THREE TIMES A DAY MAXIMUM DAILY DOSE = 3 SOLD: 05/13/2021 [facility] 20 mg 05/11/2021 12:00:00 AM EDT tablet 90 TAKE ONE TABLET BY MOUTH EVERY DAY TAKE ONE TABLET BY MOUTH EVERY DAY SOLD: 05/12/2021 [facility] 10-325 mg 04/30/2021 12:00:00 AM EDT tablet 90 TAKE ONE TABLET BY MOUTH EVERY 8 HOURS NEEDED MAXIMUM DAILY DOSE = 3 TAKE ONE TABLET BY MOUTH EVERY 8 HOURS NEEDED MAXIMUM DAILY DOSE = 3 SOLD: 04/30/2021 [facility] 200 mg 04/08/2021 12:00:00 AM EDT capsule 90 TAKE ONE CAPSULE BY MOUTH THREE TIMES A DAY MAXIMUM DAILY DOSE = 3 TAKE ONE CAPSULE BY MOUTH THREE TIMES A DAY MAXIMUM DAILY DOSE = 3 SOLD: 04/11/2021 [facility] 4 mg 04/02/2021 12:00:00 AM EDT tablets,dose pack 21 TAKE BY MOUTH DIRECTED TAKE BY MOUTH DIRECTED SOLD: 04/04/2021 [facility] 10-325 mg 03/28/2021 12:00:00 AM EDT tablet 90 TAKE ONE TABLET BY MOUTH EVERY 8 HOURS NEEDED MAXIMUM DAILY DOSE = THREE TABLETS TAKE ONE TABLET BY MOUTH EVERY 8 HOURS NEEDED MAXIMUM DAILY DOSE = THREE TABLETS SOLD: 03/30/2021 [facility] 137 mcg 03/20/2021 12:00:00 AM EDT tablet 90 TAKE ONE TABLET BY MOUTH EVERY DAY TAKE ONE TABLET BY MOUTH EVERY DAY SOLD: 03/21/2021 [facility] Amoxicillin 875 MG / Clavulanate 125 MG Oral Tablet 87 5-125 mg AMOXICILLIN/POTASSIUM CLAV 03/16/2021 12:00:00 AM EDT tablet 14 TAKE ONE TABLET BY MOUTH EVERY 12 HOURS FOR 7 DAYS TAKE ONE TABLET BY MOUTH EVERY 12 HOURS FOR 7 DAYS SOLD: 03/18/2021 [facility] 200 mg 03/10/2021 12:00:00 AM EDT capsule 90 TAKE ONE CAPSULE BY MOUTH THREE TIMES A DAY MAXIMUM DAILY DOSE = 3 TAKE ONE CAPSULE BY MOUTH THREE TIMES A DAY MAXIMUM DAILY DOSE = 3 SOLD: 03/10/2021 [facility] 10-325 mg 03/10/2021 12:00:00 AM EDT tablet 45 TAKE ONE TABLET BY MOUTH EVERY 8 HOURS NEEDED MAXIMUM DAILY DOSE = 3 TABLETS TAKE ONE TABLET BY MOUTH EVERY 8 HOURS NEEDED MAXIMUM DAILY DOSE = 3 TABLETS SOLD: 03/14/2021 [facility] 22.3-6.8 mg/mL 03/05/2021 12:00:00 AM EDT drops 10 INSTILL 1 DROP IN EACH EYE TWO TIMES A DAY INSTILL 1 DROP IN EACH EYE TWO TIMES A DAY SOLD: 03/10/2021 [facility] 15 mg 03/02/2021 12:00:00 AM EDT tablet 30 TAKE ONE TABLET BY MOUTH TWICE A DAY NEEDED MAXIMUM DAILY DOSE = 2 TAKE ONE TABLET BY MOUTH TWICE A DAY NEEDED MAXIMUM DAILY DOSE = 2 SOLD: 03/02/2021 [facility] 200 mg 02/08/2021 12:00:00 AM EST capsule 90 TAKE ONE CAPSULE BY MOUTH THREE TIMES A DAY MAXIMUM DAILY DOSE = 3 CAPSULES TAKE ONE CAPSULE BY MOUTH THREE TIMES A DAY MAXIMUM DAILY DOSE = 3 CAPSULES SOLD: 02/09/2021 [facility] 10-325 mg 02/02/2021 12:00:00 AM EST tablet 90 TAKE ONE TABLET BY MOUTH EVERY 8 HOURS NEEDED MAXIMUM DAILY DOSE = 3 TABLETS TAKE ONE TABLET BY MOUTH EVERY 8 HOURS NEEDED MAXIMUM DAILY DOSE = 3 TABLETS SOLD: 02/02/2021 [facility] 40 mg 01/27/2021 12:00:00 AM EST tablet 90 TAKE ONE TABLET BY MOUTH EVERY DAY IN THE EVENING TAKE ONE TABLET BY MOUTH EVERY DAY IN THE EVENING SOLD : 01/30/2021 [facility] 40 mg 01/27/2021 12:00:00 AM EST tablet 90 TAKE ONE TABLET BY MOUTH EVERY DAY IN THE EVENING TAKE ONE TABLET BY MOUTH EVERY DAY IN THE EVENING SOLD : 05/07/2021 [facility] 200 mg 01/10/2021 12:00:00 AM EST capsule 90 TAKE ONE CAPSULE BY MOUTH THREE TIMES A DAY MAXIMUM DAILY DOSE = 3 TAKE ONE CAPSULE BY MOUTH THREE TIMES A DAY MAXIMUM DAILY DOSE = 3 SOLD: 01/10/2021 [facility] 10-325 mg 01/04/2021 12:00:00 AM EST tablet 90 TAKE 1 TABLET BY MOUTH EVERY 8 HOURS NEEDED MAXIMUM DAILY DOSE = 3 TAKE 1 TABLET BY MOUTH EVERY 8 HOURS NEEDED MAXIMUM DAILY DOSE = 3 SOLD: 01/04/2021 [facility] 137 mcg 12/16/2020 12:00:00 AM EST tablet 90 TAKE ONE TABLET BY MOUTH EVERY DAY TAKE ONE TABLET BY MOUTH EVERY DAY SOLD: 12/18/2020 [facility] 200 mg 12/10/2020 12:00:00 AM EST capsule 90 TAKE ONE CAPSULE BY MOUTH THREE TIMES A DAY MAXIMUM DAILY DOSE = 3 CAPSULES TAKE ONE CAPSULE BY MOUTH THREE TIMES A DAY MAXIMUM DAILY DOSE = 3 CAPSULES SOLD: 12/11/2020 [facility] 10-325 mg 12/05/2020 12:00:00 AM EST tablet 90 TAKE ONE TABLET BY MOUTH EVERY 8 HOURS NEEDED MAXIMUM DAILY DOSE = 3 TABLETS TAKE ONE TABLET BY MOUTH EVERY 8 HOURS NEEDED MAXIMUM DAILY DOSE = 3 TABLETS SOLD: 12/05/2020 [facility] [facility] 20 mg 11/18/2020 12:00:00 AM EST tablet 90 TAKE ONE TABLET BY MOUTH EVERY DAY TAKE ONE TABLET BY MOUTH EVERY DAY SOLD: 11/20/2020 [facility] 20 mg 11/18/2020 12:00:00 AM EST tablet 90 TAKE ONE TABLET BY MOUTH EVERY DAY TAKE ONE TABLET BY MOUTH EVERY DAY SOLD: 02/20/2021 [facility] 0.4 mg 11/14/2020 12:00:00 AM EST capsule 30 TAKE ONE CAPSULE BY MOUTH EVERY DAY TAKE ONE CAPSULE BY MOUTH EVERY DAY SOLD: 11/15/2020 [facility] 0.4 mg 11/14/2020 12:00:00 AM EST capsule 30 TAKE ONE CAPSULE BY MOUTH EVERY DAY TAKE ONE CAPSULE BY MOUTH EVERY DAY SOLD: 03/14/2021 [facility] 0.4 mg 11/14/2020 12:00:00 AM EST capsule 30 TAKE ONE CAPSULE BY MOUTH EVERY DAY TAKE ONE CAPSULE BY MOUTH EVERY DAY SOLD: 01/18/2021 [facility] 200 mg 11/10/2020 12:00:00 AM EST capsule 90 TAKE ONE CAPSULE BY MOUTH THREE TIMES A DAY MAXIMUM DAILY DOSE = 3 TAKE ONE CAPSULE BY MOUTH THREE TIMES A DAY MAXIMUM DAILY DOSE = 3 SOLD: 11/11/2020 [facility] 10-325 mg 11/05/2020 12:00:00 AM EST tablet 90 TAKE ONE TABLET BY MOUTH EVERY 8 HOURS NEEDED MAXIMUM DAILY DOSE = 3 TABLETS TAKE ONE TABLET BY MOUTH EVERY 8 HOURS NEEDED MAXIMUM DAILY DOSE = 3 TABLETS SOLD: 11/05/2020 [facility] Metformin hydrochloride 1000 MG Oral Tablet 1,000 mg METFORM IN HCL 10/22/2020 12:00:00 AM EST tablet 28 TAKE ONE TABLET BY MOUTH TWICE A DAY FOR 14 DAYS TAKE ONE TABLET BY MOUTH TWICE A DAY FOR 14 DAYS SOLD: 10/22/2020 [facility] 200 mg 10/08/2020 12:00:00 AM EST capsule 90 TAKE ONE CAPSULE BY MOUTH THREE TIMES A DAY MAXIMUM DAILY DOSE = 3 CAPSULES TAKE ONE CAPSULE BY MOUTH THREE TIMES A DAY MAXIMUM DAILY DOSE = 3 CAPSULES SOLD: 10/09/2020 [facility] 10-325 mg 10/06/2020 12:00:00 AM EST tablet 90 TAKE ONE TABLET BY MOUTH EVERY 8 HOURS NEEDED MAXIMUM DAILY DOSE = 3 TABLETS TAKE ONE TABLET BY MOUTH EVERY 8 HOURS NEEDED MAXIMUM DAILY DOSE = 3 TABLETS SOLD: 10/06/2020 [facility] Tamsulosin hydrochloride 0.4 MG Oral Cap mahesh tamsulosin (FLOMAX) 24 hr capsule 0.4 mg tamsulosin (FLOMAX) 24 hr capsule 0.4 mg 09/16/2020 09:00:00 AM EDT 0.4 mg Oral aborted 0.4 mg, Oral, Daily, Fir st dose on Tue09/16/20 at 0900 [facility] Medication administered onsite Lisinopril 20 MG Oral Tablet lisinopril (PRINIVIL,ZEST RIL) tablet 20 mg lisinopril (PRINIVIL,ZESTRIL) tablet 20 mg 09/16/2020 09:00:00 AM EDT 20 mg Oral aborted 20 mg, Oral, D aily, First dose on Tue09/16/20 at 0900
Hold for SBP <105 and call PA
[facility] Medication administered onsite Levothyroxine Sodium 0.137 MG Oral Table t levothyroxine (SYNTHROID, LEVOTHROID) tablet 137 mcg levothyroxine (SYNTHROID, LEVOTHROID) tablet 137 mcg 1 06:00:00 AM EDT 137 ug Oral aborted 137 mcg, Oral, Daily, First dose on Tue09/16/20 at 0600 [facility] Medication administered onsite Simvastatin 40 MG Oral Tablet simvastatin (ZOCOR) tabl et 40 mg simvastatin (ZOCOR) tablet 40 mg 09/15/2020 09:00:00 PM EDT 40 mg Oral aborted 40 mg, Oral, Nightly, First dose on Tue09/15/20 at 2100 [facility] Medication administered onsite Insulin Lispro 100 UNT/ML Injectable Bettie ution insulin lispro (HumaLOG) injection 1-4 Units insulin lispro (HumaLOG) injection 1-4 Units 0 05:00:00 PM EDT Subcutaneous aborted 1-4 Units, Subcutaneous, MEALSS, First dose on Tue09/15/20 at 1700
2 units Nutritional and Correction Insulin Scale Blood Glucose (mg/dl) <70 start hypoglycemia protocol Glucose &nbsp ; Eats >=50% Eats <50%& amp;nbsp; Eats Nothing (mg/dl) of meal of meal or NPO &am p;nbsp;70- 120 1 units 1 units 0 units 121-170 & amp;nbsp; 2 units 1 units 0 units 171-220 & nbsp; 2 units 1 units 0 units 221-270 &n bsp; 3 units 2 units 1 units 271- 320 3 units 2 units 1 units 321- 370 3 units 2 units 1 units 371-42 0 4 units 3 units 2 units >420 call MD 4 units 3 units 2 units Test glucose within 30 minutes of insulin administration. Administer insulin within 15 minutes (before or after) of the patient starting to eat. For patients that are NPO, use the NPO (correction) scale to cover POC glucose at 08:00, 12:00, 17:00.
[facility] Medication administered onsite pregabalin 200 MG Oral Capsule pregabalin (LYRICA) cap mahesh 200 mg pregabalin (LYRICA) capsule 200 mg 09/15/2020 02:00:00 PM EDT 200 mg Oral aborted 200 mg, Oral, 3 times daily, First dose on Tue 0 at 1400, For 7 days [facility] Medication administered onsite dorzolamide-timolol Mal PF (COSOPT) 22.3-6.8 MG/ML oph thalmic solution 1 drop [id number] 09/15/2020 02:00:00 PM EDT 1 [drp] aborted 1 drop, Both Eyes, 2 times daily, First dose on Tue09/15/20 at 1400 [facility] Medication administered onsite Magnesium Chloride 0.11951 MEQ/ML / Pota ssium Chloride 0.0497 MEQ/ML / Sodium Acetate 0.0163 MEQ/ML / Sodium Chloride 0.0899 MEQ/ML / Sodium gluconate 5.02 MG/ML Injectable Solution [Normosol-R] electrolyte-R (NORMOSOL-R/PLASMALYTE-R) solution electrolyte-R (NORMOSOL-R/PLASMALYTE-R) solution 09/15 12:00:00 PM EDT Intravenous aborted at 1 00 mL/hr, Intravenous, Continuous, Starting Tue09/15/20 at 1200
Hep lock with good PO intake.
[facility] Medication administered onsite Acetaminophen 325 MG / Oxycodone Hydroch loride 5 MG Oral Tablet oxyCODONE- acetaminophen (PERCOCET) 5-325 MG 2 tablet oxyCODONE-acetaminophen (PERCOCET) 5- 325 MG 2 tablet 09/15/2020 11:38:00 AM EDT 2 {tbl} Oral a borted 2 tablet, Oral, Every 4 hours PRN, severe pain (7-10), Starting Tue09/15/20 at 1138, For 7 days [facility] Medication administered onsite Acetaminophen 325 MG / Oxycodone Hydroch loride 5 MG Oral Tablet oxyCODONE- acetaminophen (PERCOCET) 5-325 MG 1 tablet oxyCODONE-acetaminophen (PERCOCET) 5- 325 MG 1 tablet 09/15/2020 11:38:00 AM EDT 1 {tbl} Oral a borted 1 tablet, Oral, Every 4 hours PRN, moderate pain (4-6), Starting Tue09/15/20 at 1138, For 7 days [facility] Medication administered onsite ondansetron (ZOFRAN) injection 4 mg [id number] 09/15/2020 11:38:0 0 AM EDT 4 mg Intravenous aborted 4 mg, In travenous, Every 6 hours PRN, nausea, vomiting, Starting Tue09/15/20 at 1138, Post-op [facility] Medication administered onsite Acetaminophen 325 MG Oral Tablet acetaminophen (TYLENO L) 325 MG tablet 650 mg acetaminophen (TYLENOL) 325 MG tablet 650 mg 09/15/2020 11:37:59 AM EDT 650 mg Oral aborted 650 mg, Or al, Every 4 hours PRN, mild pain (1-3), headaches, Starting Tue09/15/20 at 1137, Post-op
"Maximum dose of acetaminophen is 4,000 mg from all sources in 24 hours."
[facility] Medication administered onsite fentaNYL Citrate (PF) (SUBLIMAZE) injection 25 mcg [id number] 09/15/2020 11:11:50 AM EDT 25 ug Intravenous aborted 25 mcg, Intravenous, Every 5 min PRN, moderate pain (4 to 6), Starting Tue09/15/20 at 1111, For 5 doses, PACU (only) [facility] Medication administered onsite Magnesium Chloride 0.65688 MEQ/ML / Pota ssium Chloride 0.0497 MEQ/ML / Sodium Acetate 0.0163 MEQ/ML / Sodium Chloride 0.0899 MEQ/ML / Sodium gluconate 5.02 MG/ML Injectable Solution [Normosol-R] electrolyte-R (NORMOSOL-R/PLASMALYTE-R) solution electrolyte-R (NORMOSOL-R/PLASMALYTE-R) solution 09/15 09:00:00 AM EDT Intravenous aborted at 1 00 mL/hr, Intravenous, Continuous, Starting Tue09/15/20 at 0900, Pre-op [facility] Medication administered onsite 137 mcg 09/10/2020 12:00:00 AM EDT tablet 90 TAKE ONE TABLET BY MOUTH EVERY DAY TAKE ONE TABLET BY MOUTH EVERY DAY SOLD: 09/10/2020 [facility] 200 mg 09/09/2020 12:00:00 AM EDT capsule 90 TAKE ONE CAPSULE BY MOUTH THREE TIMES A DAY MAXIMUM DAILY DOSE = 3 CAPSULES TAKE ONE CAPSULE BY MOUTH THREE TIMES A DAY MAXIMUM DAILY DOSE = 3 CAPSULES SOLD: 09/09/2020 [facility] 10-325 mg 09/05/2020 12:00:00 AM EDT tablet 90 TAKE ONE TABLET BY MOUTH EVERY 8 HOURS NEEDED MAXIMUM DAILY DOSE = 3 TABLETS TAKE ONE TABLET BY MOUTH EVERY 8 HOURS NEEDED MAXIMUM DAILY DOSE = 3 TABLETS SOLD: 09/05/2020 [facility] 40 mg 07/22/2020 12:00:00 AM EDT tablet 90 TAKE ONE TABLET BY MOUTH IN THE EVENING TAKE ONE TABLET BY MOUTH IN THE EVENING SOLD: 10/25/2020 [facility] 20 mg 05/26/2020 12:00:00 AM EDT tablet 87 TAKE ONE TABLET BY MOUTH EVERY DAY TAKE ONE TABLET BY MOUTH EVERY DAY SOLD: 08/28/2020 [facility] BLOOD SUGAR DIAGNOSTIC 05/13/2020 12:00:00 AM EDT strip 200 USE DIRECTED TWO TIMES A DAY USE DIRECTED TWO TIMES A DAY SOLD: 11/26/2020 [facility] 0.4 mg 12/28/2019 12:00:00 AM EST capsule 30 TAKE ONE CAPSULE BY MOUTH EVERY DAY TAKE ONE CAPSULE BY MOUTH EVERY DAY SOLD: 09/09/2020 [facility] Fluad Quad (65yr up)(PF) 60 mcg (15 mcg x 4)/0.5mL IM syringe INJECT DIRECTED [id number] completed 0.5 ML influenza A virus A/Otto (H3N2) antigen 0.03 MG/ML / influenza A virus A/ (H1N1) antigen 0.03 MG/ML / influenza B virus B/[facility] antigen 0.03 MG/ML / influenza B virus B/Nicci antigen 0.03 MG/ML Prefilled Syringe [Fluad Quadrivalent ] [facility] ([facility]) methylprednisolone 4 mg tablets in a dose pack [id number] completed methylprednisolone 4 mg tablets in a dose pack [facility] ([facility]) 24 HR Metformin hydrochloride 500 MG Ext ended Release Oral Tablet metformin ER 500 mg tablet,extended release 24 hr 1 tab twice daily metformin ER 500 mg tablet,extended release 24 hr 1 tab twice daily completed 24 HR metformin hydrochloride 500 MG Extended Release Oral Tablet [facility] ([facility]) Fluad Quad (65yr up)(PF) 60 mcg (15 mcg x 4)/0.5mL IM syringe INJECT DIRECTED [id number] completed 0.5 ML influenza A virus A/[place] [place] (H3N2) antigen 0.03 MG/ML / influenza A virus A/ (H1N1) antigen 0.03 MG/ML / influenza B virus B/[facility] antigen 0.03 MG/ML / influenza B virus B/ antigen 0.03 MG/ML Prefilled Syringe [Fluad Quadrivalent ] [facility] ([facility]) 24 HR Metformin hydrochloride 500 MG Ext ended Release Oral Tablet metformin ER 500 mg tablet,extended release 24 hr 1 tab twice daily metformin ER 500 mg tablet,extended release 24 hr 1 tab twice daily completed 24 HR metformin hydrochloride 500 MG Extended Release Oral Tablet [facility] ([facility]) Fluad Quad (65yr up)(PF) 60 mcg (15 mcg x 4)/0.5mL IM syringe INJECT DIRECTED [id number] completed 0.5 ML influenza A virus A/Otto (H3N2) antigen 0.03 MG/ML / influenza A virus A/ (H1N1) antigen 0.03 MG/ML / influenza B virus B/[facility] antigen 0.03 MG/ML / influenza B virus B/ antigen 0.03 MG/ML Prefilled Syringe [Fluad Quadrivalent ] [facility] ([facility]) Fluad Quad (65yr up)(PF) 60 mcg (15 mcg x 4)/0.5mL IM syringe INJECT DIRECTED [id number] completed 0.5 ML influenza A virus A/[place] [place] (H3N2) antigen 0.03 MG/ML / influenza A virus A/ (H1N1) antigen 0.03 MG/ML / influenza B virus B/[facility] antigen 0.03 MG/ML / influenza B virus B/ antigen 0.03 MG/ML Prefilled Syringe [Fluad Quadrivalent ] [facility] ([facility]) Fluad Quad (65yr up)(PF) 60 mcg (15 mcg x 4)/0.5mL IM syringe INJECT DIRECTED [id number] completed 0.5 ML influenza A virus A/[place] [place] (H3N2) antigen 0.03 MG/ML / influenza A virus A/ (H1N1) antigen 0.03 MG/ML / influenza B virus B/[facility] antigen 0.03 MG/ML / influenza B virus B/[place] antigen 0.03 MG/ML Prefilled Syringe [Fluad Quadrivalent ] [facility] ([facility]) 24 HR Metformin hydrochloride 500 MG Ext ended Release Oral Tablet metformin ER 500 mg tablet,extended release 24 hr 1 tab twice daily metformin ER 500 mg tablet,extended release 24 hr 1 tab twice daily completed 24 HR metformin hydrochloride 500 MG Extended Release Oral Tablet [facility] ([facility]) 24 HR Metformin hydrochloride 500 MG Ext ended Release Oral Tablet metformin ER 500 mg tablet,extended release 24 hr 1 tab twice daily metformin ER 500 mg tablet,extended release 24 hr 1 tab twice daily completed 24 HR metformin hydrochloride 500 MG Extended Release Oral Tablet [facility] ([facility]) 24 HR Metformin hydrochloride 500 MG Ext ended Release Oral Tablet metformin ER 500 mg tablet,extended release 24 hr 1 tab twice daily metformin ER 500 mg tablet,extended release 24 hr 1 tab twice daily completed 24 HR metformin hydrochloride 500 MG Extended Release Oral Tablet [facility] ([facility]) 24 HR Metformin hydrochloride 500 MG Ext ended Release Oral Tablet metformin ER 500 mg tablet,extended release 24 hr 1 tab twice daily metformin ER 500 mg tablet,extended release 24 hr 1 tab twice daily completed 24 HR metformin hydrochloride 500 MG Extended Release Oral Tablet [facility] ([facility]) pregabalin 150 MG Oral Capsule pregabali n 150 mg capsule TAKE ONE CAPSULE BY MOUTH THREE TIMES A DAY MAXIMUM DAILY DOSE 3 CAPSULES pregabalin 150 mg capsule TAKE ONE CAPSULE BY MOUTH THREE TIMES A DAY MAXIMUM DAILY DOSE 3 CAPSULES completed pregabalin 15 0 MG Oral Capsule [facility] ([facility]) Fluad Quad (65yr up)(PF) 60 mcg (15 mcg x 4)/0.5mL IM syringe INJECT DIRECTED [id number] completed 0.5 ML influenza A virus A/ (H3N2) antigen 0.03 MG/ML / influenza A virus A/ (H1N1) antigen 0.03 MG/ML / influenza B virus B/[facility] antigen 0.03 MG/ML / influenza B virus B/ antigen 0.03 MG/ML Prefilled Syringe [Fluad Quadrivalent ] [facility] ([facility]) 24 HR Metformin hydrochloride 500 MG Ext ended Release Oral Tablet metformin ER 500 mg tablet,extended release 24 hr 1 tab twice daily metformin ER 500 mg tablet,extended release 24 hr 1 tab twice daily completed 24 HR metformin hydrochloride 500 MG Extended Release Oral Tablet [facility] ([facility]) methylprednisolone 4 mg tablets in a dose pack [id number] completed methylprednisolone 4 mg tablets in a dose pack [facility] ([facility]) 24 HR Metformin hydrochloride 500 MG Ext ended Release Oral Tablet metformin ER 500 mg tablet,extended release 24 hr 1 tab twice daily metformin ER 500 mg tablet,extended release 24 hr 1 tab twice daily completed 24 HR metformin hydrochloride 500 MG Extended Release Oral Tablet [facility] ([facility]) Fluad Quad (65yr up)(PF) 60 mcg (15 mcg x 4)/0.5mL IM syringe INJECT DIRECTED [id number] completed 0.5 ML influenza A virus A/ (H3N2) antigen 0.03 MG/ML / influenza A virus A/ (H1N1) antigen 0.03 MG/ML / influenza B virus B/[facility] antigen 0.03 MG/ML / influenza B virus B/ antigen 0.03 MG/ML Prefilled Syringe [Fluad Quadrivalent ] [facility] ([facility]) Amoxicillin 875 MG / Clavulanate 125 MG Oral Tablet amoxicillin 875 mg-potassium clavulanate 125 mg tablet amoxicillin 875 mg-potassium clavulanate 125 mg tablet completed amoxicillin 875 MG / clavulanate 125 MG Oral Tablet [facility] ([facility]) methylprednisolone 4 mg tablets in a dose pack [id number] completed methylprednisolone 4 mg tablets in a dose pack [facility] ([facility]) 24 HR Metformin hydrochloride 500 MG Ext ended Release Oral Tablet metformin ER 500 mg tablet,extended release 24 hr 1 tab twice daily metformin ER 500 mg tablet,extended release 24 hr 1 tab twice daily completed 24 HR metformin hydrochloride 500 MG Extended Release Oral Tablet [facility] ([facility]) Fluad Quad (65yr up)(PF) 60 mcg (15 mcg x 4)/0.5mL IM syringe INJECT DIRECTED [id number] completed 0.5 ML influenza A virus A/[place] (H3N2) antigen 0.03 MG/ML / influenza A virus A/ (H1N1) antigen 0.03 MG/ML / influenza B virus B/[facility] antigen 0.03 MG/ML / influenza B virus B/ antigen 0.03 MG/ML Prefilled Syringe [Fluad Quadrivalent ] [facility] ([facility]) Fluad Quad (65yr up)(PF) 60 mcg (15 mcg x 4)/0.5mL IM syringe INJECT DIRECTED [id number] completed 0.5 ML influenza A virus A/Otto [place] (H3N2) antigen 0.03 MG/ML / influenza A virus A/ (H1N1) antigen 0.03 MG/ML / influenza B virus B/[facility] antigen 0.03 MG/ML / influenza B virus B/ antigen 0.03 MG/ML Prefilled Syringe [Fluad Quadrivalent ] [facility] ([facility]) 24 HR Metformin hydrochloride 500 MG Ext ended Release Oral Tablet metformin ER 500 mg tablet,extended release 24 hr 1 tab twice daily metformin ER 500 mg tablet,extended release 24 hr 1 tab twice daily completed 24 HR metformin hydrochloride 500 MG Extended Release Oral Tablet [facility] ([facility]) Fluad Quad (65yr up)(PF) 60 mcg (15 mcg x 4)/0.5mL IM syringe INJECT DIRECTED [id number] completed 0.5 ML influenza A virus A/[place]to [place] (H3N2) antigen 0.03 MG/ML / influenza A virus A/ (H1N1) antigen 0.03 MG/ML / influenza B virus B/[facility] antigen 0.03 MG/ML / influenza B virus B/ antigen 0.03 MG/ML Prefilled Syringe [Fluad Quadrivalent ] [facility] ([facility]) 24 HR Metformin hydrochloride 500 MG Ext ended Release Oral Tablet metformin ER 500 mg tablet,extended release 24 hr 1 tab twice daily metformin ER 500 mg tablet,extended release 24 hr 1 tab twice daily completed 24 HR metformin hydrochloride 500 MG Extended Release Oral Tablet [facility] ([facility]) 24 HR Metformin hydrochloride 500 MG Ext ended Release Oral Tablet metFORMIN (GLUCOPHATE-XR) 500 MG 24 hr tablet metFORMIN (GLUCOPHATE-XR) 500 MG 24 hr tablet 500 mg Oral aborted Take 500 mg by m outh 2 (two) times a day [facility] Fluad Quad (65yr up)(PF) 60 mcg (15 mcg x 4)/0.5mL IM syringe INJECT DIRECTED [id number] completed 0.5 ML influenza A virus A/Otto (H3N2) antigen 0.03 MG/ML / influenza A virus A/ (H1N1) antigen 0.03 MG/ML / influenza B virus B/[facility] antigen 0.03 MG/ML / influenza B virus B/ antigen 0.03 MG/ML Prefilled Syringe [Fluad Quadrivalent ] [facility] ([facility]) Fluad Quad (65yr up)(PF) 60 mcg (15 mcg x 4)/0.5mL IM syringe INJECT DIRECTED [id number] completed 0.5 ML influenza A virus A/Otto (H3N2) antigen 0.03 MG/ML / influenza A virus A/ (H1N1) antigen 0.03 MG/ML / influenza B virus B/[facility] antigen 0.03 MG/ML / influenza B virus B/ antigen 0.03 MG/ML Prefilled Syringe [Fluad Quadrivalent ] [facility] ([facility]) 24 HR Metformin hydrochloride 500 MG Ext ended Release Oral Tablet metformin ER 500 mg tablet,extended release 24 hr 1 tab twice daily metformin ER 500 mg tablet,extended release 24 hr 1 tab twice daily completed 24 HR metformin hydrochloride 500 MG Extended Release Oral Tablet [facility] ([facility]) 24 HR Metformin hydrochloride 500 MG Ext ended Release Oral Tablet metformin ER 500 mg tablet,extended release 24 hr 1 tab twice daily metformin ER 500 mg tablet,extended release 24 hr 1 tab twice daily completed 24 HR metformin hydrochloride 500 MG Extended Release Oral Tablet [facility] ([facility]) Fluad Quad [id number](65yr up)(PF) 60 mcg (15 mcg x 4)/0.5mL IM syringe INJECT DIRECTED [id number] completed 0.5 ML influenza A virus A/Otto [place] (H3N2) antigen 0.03 MG/ML / influenza A virus A/[facility] (H1N1) antigen 0.03 MG/ML / influenza B virus B/[facility] antigen 0.03 MG/ML / influenza B virus B/[facility]ci antigen 0.03 MG/ML Prefilled Syringe [Fluad Quadrivalent ] [facility] ([facility]) Insurance Providers Payer name Policy type / Coverage type Policy ID Covered democrat ID Covered democrat's relationship to porter Policy Porter Plan Information MEDICARE A [id number] Self [id number] U22 MEDICARE [id number] SP [id number] U22 MEDICARE [id number] [place] [id number] U22 TODAYS OPTIONS [id number] SP [id number] MEDICARE [id number] SP [id number] A MEDICARE [id number] xxxxxxxxxxx [id number] TODAYS OPTION MEDICARE [id number] [place] [id number] TODAYS OPTION MEDICARE [id number] [place] [id number] [facility] [id number] Self [id number] [facility] [id number] xxxxxxxxxxx [id number] [facility] [id number] [place] [id number] INSURANCE COVID-19 COVID [place]ora C OVID Medicare [place] Primary [id number] [id number] [id number] Self [id number] 11 Medicare [place] Medicare Primary [id number] Self [id number] MEDICARE C [id number] S [id number] A [employer] Med[employer] Part B [id number] Self [id number] 11 Medicare [place] Medicare Primary [id number] Self [id number] [employer] Medigap Part B [id number] Self Medicare [place] Medicare Primary [id number] Self MEDICARE [id number] SP [id number] A [employer] OPTIONS [id number] SP [id number] MEDICARE [id number] SP [id number] U22 INSURANCE COVID-19 COVID Te[place]ora C OVID INSURANCE COVID-19 [id number] [id number] MEDICARE C [id number] S [id number] U22 AARP O [id number] S [id number] [employer] OPTIONS [id number] SP [id number] [employer] Options Medigap Part B [id number] Self [id number] [place] Primary [id number] Self [id number] [employer] Medigap Part B [id number] Self [id number] [place] Primary [id number] Self [id number] [employer] [facility] Part B [id number] Self [id number] Problems, Conditions, and Diagnoses Code Display Name Description Problem Type Effective Dates Data Source(s) C73 Malignant neoplasm of thyroid gland Malignant ne oplasm of thyroid gland Diagnosis 10/14/2020 01:22:18 PM EST [facility] h Center U07.1 COVID-19 COVID-19 Diagnosis 09/10/2020 10:04:48 AM ED T [facility] Surgeries/Procedures Procedure Description Date Indications Data Source(s) Lap Vent Umb Spig Epig W Mesh, Reducible 01/30/2021 12 :00:00 AM EST [facility] ([facility] ) GLUC BLD GLUC MNTR DEV CLEARED FDA SPEC HOME USE <td>P OCT GLUCOSE</td><td>Routine</td><td>09/16/2020 7:51 AM EDT</td><td></td><td> </td> 09/16/2020 11:51:00 AM EDT [facility] CALCIUM TOTAL <td>CALCIUM</td><td>Routine< /td><td>09/16/2020 4:01 AM EDT</td><td></td><td> </td> 09/16/2020 08:01:00 AM EDT [facility] GLUC BLD GLUC MNTR DEV CLEARED FDA SPEC HOME USE <td>P OCT GLUCOSE</td><td>Routine</td><td>09/15/2020 6:15 PM EDT</td><td></td><td> </td> 09/15/2020 10:15:00 PM EDT [facility] GLUC BLD GLUC MNTR DEV CLEARED FDA SPEC HOME USE <td>P OCT GLUCOSE</td><td>Routine</td><td>09/15/2020 2:44 PM EDT</td><td></td><td> </td> 09/15/2020 06:44:00 PM EDT [facility] GLUC BLD GLUC MNTR DEV CLEARED FDA SPEC HOME USE <td>P OCT GLUCOSE</td><td>Routine</td><td>09/15/2020 11:48 AM EDT</td><td></td><td> </td> 09/15/2020 03:48:00 PM EDT [facility] THYROIDECTOMY, SUBTOTAL (LOBECTOMY) <td>THYROIDECTOMY, SUBTOTAL (LOBECTOMY)</td><td></td><td>09/15/2020 9:50 AM EDT</td><td> Thyroid cancer</td><td></td> 09/15/2020 01:50:00 PM EDT - 09/15/2020 04:12:00 PM EDT Thyroid cancer [facility] Thyroid cancer GLUC BLD GLUC MNTR DEV CLEARED FDA SPEC HOME USE <td>P OCT GLUCOSE</td><td>Routine</td><td>09/15/2020 9:04 AM EDT</td><td></td><td> </td> 09/15/2020 01:04:00 PM EDT [facility] LEVEL IV SURG PATHOLOGY GROSS&MICROSCOPIC EXAM <td>[facility] HISTOLOGY</td><td>Routine</td><td>09/15/2020 8:02 AM EDT</td><td></td><td> </td> 09/15/2020 12:02:00 PM EDT [facility] uro PVR (Post Voiding Residual) Bladder Scan 0 12:00:00 AM EDT [email or web address] ([facility]) Results ID Date Data Source [id number] 05/04/2021 12:00:00 AM EDT [facility] ([facility] [place]) Name Value Range Interpretation Code Description Data Serena rce(s) Supporting Document(s) SARS-CoV-2 (COVID-19) RNA [Presence] in Respiratory specimen by JUAN PABLO with probe detection negative negative Sars-cov-2 [place] ([facility]) ID Date Data Source [id number] 05/04/2021 12:00:00 AM EDT [facility] ([facility]) Name Value Range Interpretation Code Description Data Serena rce(s) Supporting Document(s) ID Date Data Source [id number] 05/04/2021 12:00:00 AM EDT [facility] ([facility]) Name Value Range Interpretation Code Description Data Serena rce(s) Supporting Document(s) SARS-CoV-2 (COVID-19) RNA [Presence] in Respiratory specimen by JUAN PABLO with probe detection negative negative Sars-cov-2 [place] ([facility]) ID Date Data Source [id number] 05/04/2021 12:00:00 AM EDT [facility] ([facility]) Name Value Range Interpretation Code Description Data Serena rce(s) Supporting Document(s) ID Date Data Source [id number] 05/04/2021 12:00:00 AM EDT [facility] Name Value Range Interpretation Code Description Data Serena rce(s) Supporting Document(s) [facility] was ordered by [facility] [employer] [facility] and reported by [employer]. ID Date Data Source [id number] 03/16/2021 12:00:00 AM EDT [facility] ([facility]) Name Value Range Interpretation Code Description Data Serena rce(s) Supporting Document(s) ID Date Data Source [id number] 03/16/2021 12:00:00 AM EDT [place] ([facility]) Name Value Range Interpretation Code Description Data Serena rce(s) Supporting Document(s) SARS-CoV-2 (COVID-19) RNA [Presence] in Respiratory specimen by JUAN PABLO with probe detection negative negative Sars-cov-2 [place] ([facility]) ID Date Data Source [id number] 03/16/2021 12:00:00 AM EDT [facility] ([facility]) Name Value Range Interpretation Code Description Data Serena rce(s) Supporting Document(s) ID Date Data Source [id number] 03/16/2021 12:00:00 AM EDT [facility] ([facility]) Name Value Range Interpretation Code Description Data Serena rce(s) Supporting Document(s) SARS-CoV-2 (COVID-19) RNA [Presence] in Respiratory specimen by JUAN PABLO with probe detection negative negative Sars-cov-2 [place] ([facility]) ID Date Data Source [id number] 03/16/2021 12:00:00 AM EDT [facility] ([facility]) Name Value Range Interpretation Code Description Data Serena rce(s) Supporting Document(s) ID Date Data Source [id number] 03/16/2021 12[facility] Name Value Range Interpretation Code Description Data Serena rce(s) Supporting Document(s) SARS-CoV-2 (COVID-19) RNA [Presence] in Respiratory specimen by JUAN PABLO with probe detection negative negative Sars-cov-2 [facility] ([facility]) ID Date Data Source [id number] 03/16/2021 12:00:00 AM EDT [facility] ([facility]) Name Value Range Interpretation Code Description Data Serena rce(s) Supporting Document(s) ID Date Data Source [id number] 03/16/2021 12:00:00 AM EDT [facility] Name Value Range Interpretation Code Description Data Serena rce(s) Supporting Document(s) SARS-CoV-2 NEGATIVE [facility] This lab was ordered by [facility] [employer] [facility] and reported by [employer]. ID Date Data Source [id number] 03/16/2021 12:00:00 AM EDT [facility] ([facility]) Name Value Range Interpretation Code Description Data Serena rce(s) Supporting Document(s) SARS-CoV-2 (COVID-19) RNA [Presence] in Respiratory specimen by JUAN PABLO with probe detection negative negative Sars-cov-2 [facility] ([facility]) ID Date Data Source [id number] 03/16/2021 12:00:00 AM EDT [facility] ([facility]) Name Value Range Interpretation Code Description Data Serena rce(s) Supporting Document(s) ID Date Data Source [id number] 03/16/2021 12:00:00 AM EDT [facility] ([facility]) Name Value Range Interpretation Code Description Data Serena rce(s) Supporting Document(s) SARS-CoV-2 (COVID-19) RNA [Presence] in Respiratory specimen by JUAN PABLO with probe detection negative negative Sars-cov-2 [place] ([facility]) ID Date Data Source [id number] 01/30/2021 06:56:00 AM EST [facility] ([facility], ) Name Value Range Interpretation Code Description Data Serena rce(s) Supporting Document(s) Glucose [Mass/volume] in Capillary blood by Glucometer 147 mg/dL 83-110 Above high normal [facility] ([facility], ) ID Date Data Source [id number] 01/25/2021 10:00:00 AM EST [facility] Name Value Range Interpretation Code Description Data Serena rce(s) Supporting Document(s) SARS coronavirus 2 RNA Not Detected [facility] This lab was ordered by [facility] and reported by [facility]. ID Date Data Source [id number] 12/26/2020 12:00:00 AM EST [facility] ([facility]) Name Value Range Interpretation Code Description Data Serena rce(s) Supporting Document(s) SARS-CoV-2 (COVID-19) RNA [Presence] in Respiratory specimen by JUAN PABLO with probe detection negative negative Sars-cov-2 [facility] ([facility]) ID Date Data Source [id number] 12/26/2020 12:00:00 AM EST [facility] ([facility]) Name Value Range Interpretation Code Description Data Serena rce(s) Supporting Document(s) ID Date Data Source [id number] 12/26/2020 12:00:00 AM EST [place] ([facility]) Name Value Range Interpretation Code Description Data Serena rce(s) Supporting Document(s) SARS-CoV-2 (COVID-19) RNA [Presence] in Respiratory specimen by JUAN PABLO with probe detection negative negative Sars-cov-2 [place] ([facility]) ID Date Data Source [id number] 12/26/2020 12:00:00 AM EST [place] ([facility]) Name Value Range Interpretation Code Description Data Serena rce(s) Supporting Document(s) ID Date Data Source [id number] 12/26/2020 12:00:00 AM EST [facility] ([facility]) Name Value Range Interpretation Code Description Data Serena rce(s) Supporting Document(s) SARS-CoV-2 (COVID-19) RNA [Presence] in Respiratory specimen by JUAN PABLO with probe detection negative negative Sars-cov-2 [facility] ([facility]) ID Date Data Source [id number] 12/26/2020 12:00:00 AM EST [facility] ([facility]) Name Value Range Interpretation Code Description Data Serena rce(s) Supporting Document(s) ID Date Data Source [id number] 12/26/2020 12:00:00 AM EST [facility] ([facility]) Name Value Range Interpretation Code Description Data Serena rce(s) Supporting Document(s) SARS-CoV-2 (COVID-19) RNA [Presence] in Respiratory specimen by JUAN PABLO with probe detection negative negative Sars-cov-2 [place] ([facility]) ID Date Data Source [id number] 12/26/2020 12:00:00 AM EST [facility] ([facility]) Name Value Range Interpretation Code Description Data Serena rce(s) Supporting Document(s) ID Date Data Source [id number] 12/26/2020 12:00:00 AM EST [place] ([facility]) Name Value Range Interpretation Code Description Data Serena rce(s) Supporting Document(s) SARS-CoV-2 (COVID-19) RNA [Presence] in Respiratory specimen by JUAN PABLO with probe detection negative negative Sars-cov-2 [place] ([facility]) ID Date Data Source [id number] 12/26/2020 12:00:00 AM EST [place] ([facility]) Name Value Range Interpretation Code Description Data Serena rce(s) Supporting Document(s) ID Date Data Source [id number] 12/26/2020 12:00:00 AM EST [place] ([facility]) Name Value Range Interpretation Code Description Data Serena rce(s) Supporting Document(s) SARS-CoV-2 (COVID-19) RNA [Presence] in Respiratory specimen by JUAN PABLO with probe detection negative negative Sars-cov-2 [place] ([facility]) ID Date Data Source [id number] 12/26/2020 12:00:00 AM EST [place] ([facility]) Name Value Range Interpretation Code Description Data Serena rce(s) Supporting Document(s) ID Date Data Source [id number] 12/26/2020 12:00:00 AM EST [facility] ([facility]) Name Value Range Interpretation Code Description Data Serena rce(s) Supporting Document(s) SARS-CoV-2 (COVID-19) RNA [Presence] in Respiratory specimen by JUAN PABLO with probe detection negative negative Sars-cov-2 [place] ([facility]) ID Date Data Source [id number] 12/26/2020 12:00:00 AM EST [place] ([facility]) Name Value Range Interpretation Code Description Data Serena rce(s) Supporting Document(s) ID Date Data Source [id number] 12/26/2020 12:00:00 AM EST [place] ([facility]) Name Value Range Interpretation Code Description Data Serena rce(s) Supporting Document(s) SARS-CoV-2 (COVID-19) RNA [Presence] in Respiratory specimen by JUAN PABLO with probe detection negative negative Sars-cov-2 [place] ([facility]) ID Date Data Source [id number] 12/26/2020 12:00:00 AM EST [place] ([facility]) Name Value Range Interpretation Code Description Data Serena rce(s) Supporting Document(s) ID Date Data Source [id number] 12/26/2020 12:00:00 AM EST [facility] Name Value Range Interpretation Code Description Data Serena rce(s) Supporting Document(s) SARS-CoV-2 NEGATIVE [facility] This lab was ordered by [facility] [employer] [facility] and reported by [employer]. ID Date Data Source [id number] 12/26/2020 12:00:00 AM EST [place] ([facility]) Name Value Range Interpretation Code Description Data Serena rce(s) Supporting Document(s) SARS-CoV-2 (COVID-19) RNA [Presence] in Respiratory specimen by JUAN PABLO with probe detection negative negative Sars-cov-2 [place] ([facility] [place]) ID Date Data Source [id number] 12/26/2020 12:00:00 AM EST [facility] ([facility]) Name Value Range Interpretation Code Description Data Serena rce(s) Supporting Document(s) ID Date Data Source [id number] 12/15/2020 12:00:00 AM EST [facility] ([facility]) Name Value Range Interpretation Code Description Data Serena rce(s) Supporting Document(s) SARS-CoV-2 (COVID-19) RNA [Presence] in Respiratory specimen by JUAN PABLO with probe detection negative negative Sars-cov-2 [place] ([facility]) ID Date Data Source [id number] 12/15/2020 12:00:00 AM EST [place] ([facility]) Name Value Range Interpretation Code Description Data Serena rce(s) Supporting Document(s) ID Date Data Source [id number] 12/15/2020 12:00:00 AM EST [place] ([facility]) Name Value Range Interpretation Code Description Data Serena rce(s) Supporting Document(s) SARS-CoV-2 (COVID-19) RNA [Presence] in Respiratory specimen by JUAN PABLO with probe detection negative negative Sars-cov-2 [place] ([facility]) ID Date Data Source [id number] 12/15/2020 12:00:00 AM EST [facility] ([facility]) Name Value Range Interpretation Code Description Data Serena rce(s) Supporting Document(s) ID Date Data Source [id number] 12/15/2020 12:00:00 AM EST [facility] ([facility]) Name Value Range Interpretation Code Description Data Serena rce(s) Supporting Document(s) SARS-CoV-2 (COVID-19) RNA [Presence] in Respiratory specimen by JUAN PABLO with probe detection negative negative Sars-cov-2 [place] ([facility]) ID Date Data Source [id number] 12/15/2020 12:00:00 AM EST [place] ([facility]) Name Value Range Interpretation Code Description Data Serena rce(s) Supporting Document(s) ID Date Data Source [id number] 12/15/2020 12:00:00 AM EST [place] ([facility]) Name Value Range Interpretation Code Description Data Serena rce(s) Supporting Document(s) SARS-CoV-2 (COVID-19) RNA [Presence] in Respiratory specimen by JUAN PABLO with probe detection negative negative Sars-cov-2 [place] ([facility]) ID Date Data Source [id number] 12/15/2020 12:00:00 AM EST [place] ([facility]) Name Value Range Interpretation Code Description Data Serena rce(s) Supporting Document(s) ID Date Data Source [id number] 12/15/2020 12:00:00 AM EST [place] ([facility]) Name Value Range Interpretation Code Description Data Serena rce(s) Supporting Document(s) SARS-CoV-2 (COVID-19) RNA [Presence] in Respiratory specimen by JUAN PABLO with probe detection negative negative Sars-cov-2 [place] ([facility]) ID Date Data Source [id number] 12/15/2020 12:00:00 AM EST [place] ([facility]) Name Value Range Interpretation Code Description Data Serena rce(s) Supporting Document(s) ID Date Data Source [id number] 12/15/2020 12:00:00 AM EST [place] ([facility]) Name Value Range Interpretation Code Description Data Serena rce(s) Supporting Document(s) SARS-CoV-2 (COVID-19) RNA [Presence] in Respiratory specimen by JUAN PABLO with probe detection negative negative Sars-cov-2 [place] ([facility]) ID Date Data Source [id number] 12/15/2020 12:00:00 AM EST [place] ([facility]) Name Value Range Interpretation Code Description Data Serena rce(s) Supporting Document(s) ID Date Data Source [id number] 12/15/2020 12:00:00 AM EST [place] ([facility]) Name Value Range Interpretation Code Description Data Serena rce(s) Supporting Document(s) SARS-CoV-2 (COVID-19) RNA [Presence] in Respiratory specimen by JUAN PABLO with probe detection negative negative Sars-cov-2 [place] ([facility]) ID Date Data Source [id number] 12/15/2020 12:00:00 AM EST [place] ([facility]) Name Value Range Interpretation Code Description Data Serena rce(s) Supporting Document(s) ID Date Data Source [id number] 12/15/2020 12:00:00 AM EST [place] ([facility]) Name Value Range Interpretation Code Description Data Serena rce(s) Supporting Document(s) SARS-CoV-2 (COVID-19) RNA [Presence] in Respiratory specimen by JUAN PABLO with probe detection negative negative Sars-cov-2 [place] ([facility]) ID Date Data Source [id number] 12/15/2020 12:00:00 AM EST [place] ([facility]) Name Value Range Interpretation Code Description Data Serena rce(s) Supporting Document(s) ID Date Data Source [id number] 12/15/2020 12:00:00 AM EST [place] ([facility]) Name Value Range Interpretation Code Description Data Serena rce(s) Supporting Document(s) SARS-CoV-2 (COVID-19) RNA [Presence] in Respiratory specimen by JUAN PABLO with probe detection negative negative Sars-cov-2 [place] ([facility]) ID Date Data Source [id number] 12/15/2020 12:00:00 AM EST [place] ([facility]) Name Value Range Interpretation Code Description Data Serena rce(s) Supporting Document(s) ID Date Data Source [id number] 12/15/2020 12:00:00 AM EST [place] ([facility]) Name Value Range Interpretation Code Description Data Serena rce(s) Supporting Document(s) SARS-CoV-2 (COVID-19) RNA [Presence] in Respiratory specimen by JUAN PABLO with probe detection negative negative Sars-cov-2 [place] ([facility]) ID Date Data Source [id number] 12/15/2020 12:00:00 AM EST [place] ([facility]) Name Value Range Interpretation Code Description Data Serena rce(s) Supporting Document(s) ID Date Data Source [id number] 12/15/2020 12:00:00 AM EST [facility] Name Value Range Interpretation Code Description Data Serena rce(s) Supporting Document(s) SARS-CoV-2 NEGATIVE [facility] This lab was ordered by [facility] [employer] [facility] and reported by [employer]. ID Date Data Source [id number] 12/15/2020 12:00:00 AM EST [place] ([facility]) Name Value Range Interpretation Code Description Data Serena rce(s) Supporting Document(s) SARS-CoV-2 (COVID-19) RNA [Presence] in Respiratory specimen by JUAN PABLO with probe detection negative negative Sars-cov-2 [place] ([facility]) ID Date Data Source [id number] 12/15/2020 12:00:00 AM EST [place] ([facility]) Name Value Range Interpretation Code Description Data Serena rce(s) Supporting Document(s) ID Date Data Source [id number] 11/13/2020 10:07:00 AM EST [facility] ([facility] ) Name Value Range Interpretation Code Description [facility]) Thyroglobulin Quantitative Laboratory test result 1.4-29.2 [facility] ([facility] ) . According to the National Academy of Clinical Biochemistry, the reference interval for Thyroglobulin (TG) should be related to euthyroid patients and not for patients who underwent thyroidectomy. TG reference intervals for these patients depend on the residual mass of the thyroid tissue left after surgery. Establishing a post-operative baseline is recommended. The assay limit of quantitation is 0.1 ng/mL . Thyroglobulin measured by [employer] Assay Performed at: - [facility] [id number] [employer]: Amaya Carrillo MD, Phone: [phone] Thryoglobulin Antibodies (Chris) Laboratory test result 0.0-0.9 [facility] ([facility]) Thyroglobulin Antibody measured by [facility] ID Date Data Source [id number] 11/13/2020 10:07:00 AM EST [facility] ([facility] ) Name Value Range Interpretation Code Description Data [facility](s) Supporting Document(s) Thyroglobulin [Mass/volume] in Serum or Plasma Laboratory test result [facility] ([facility] ) Thyrotropin [Units/volume] in Serum or Plasma by Detec tion limit <= 0.05 mIU/L 0.027 uIU/ML 0.358-3.740 [facility] ([facility] ) Thyroxine (T4) free [Mass/volume] in Serum or Plasma 1.37 ng/dL 0.76- 1.46 [facility] ([facility] ) Thyroglobulin Ab [Units/volume] in Serum or Plasma Laboratory test re sult [facility] ([facility] ) Calcium [Mass/volume] in Serum or Plasma 9.8 mg/dL 8.8-10.2 [facility] ([facility] ) ID Date Data Source [id number] 10/14/2020 01:51:35 PM EST [facility] INFORMATIONPatient MRN Name Date of Age Gend*PT [id number] Juan Nielson 1945 74 years M ---PT Location Admission Date/Time Visit ID Attending Provider --- --- --- --- EPI ID CSN Admitting Provider [id number] ---POST OPERATIVE VISITDATE OF SURGERY: 09/15/20PROCEDURE: right lobectomy (completion thyroidectomy)I reviewed the pathology and surgery details with patient today.Current levothyroxine dose 137 mcgDIAGNOSISTHYROID, LEFT LOBE, LOBECTOMY: THYROID TISSUE WITH TWO INCIDENTAL PAPILLARY MICROCARCINOMAS, 4MM AND 0.3 MM. SEE COMMENT.The patients admits to mild intermittent hoarsenessExam:Neck: Incision well approximated, minimal swelling, no signs of infectionAssessment and Plan:S/p completion thyroidectomySatisfactory recovery from completion thyroidectomy. I asked him to schedulefollow-up appointment with Dr. 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 However his right recurrent nerve wastemporarily paralyzed, it has recovered. Then Covid occurred. Then there weresome delays in scheduling his completion thyroidectomy. Ultimately he presentstoday for completion left lobectomy so he can get adjuvant radioactive iodine. OPERATIVE FINDINGS: Normal-appearing left thyroid lobe return nerve stimulatedon the left side after of his normal lobe. Possible left upper parathyroidseen. No adenopathy. PROCEDURE DETAILS: Consent obtained from patient. He underwent general anesthesia without incident.Intubated with difficulty. No antibiotics were indicated. A collar incision wasused in a natural skin crease. The skin and platysma were divided. Subplatysmalflaps were raised. The strap muscles were then split in the midline. The isthmuswas mobilized and divided. No large node or pyramidal lobe seen The left lobe was mobilized. The upper pole vessels were divided with Ligasure..The left with small without nodules. The recurrent nerve was found after takingdown the upper pole and dividing the middle thyroid vein close to the thyroidgland. The nerve was traced with neuro monitoring and was deep to ourdissection. I continued with the dissection until the lobe was held only by theligament of plascencia. I then divided with bipolar the ligament of Plascencia above thepath of the nerve. I did not appreciate any adenopathy. I left a portion of thetubercle of Zuckerkandl adjacent to the nerve. I did not want to injure hisleft nerve. I placed hemostatic agent. I then closed strap muscle in themidline with several interrupted sutures. Then I re approximated the platysma. The skin was closed with running monocrylfollowed by steristrips. A dressing was applied. He tolerated well. Sponge andneedle counts were correct. Specimens; left thyroid lobe Complications: none Name Value Range Interpretation Code Description Data Serena rce(s) Supporting Document(s) ID Date Data Source [id number] 09/16/2020 07:55:59 AM EDT [facility] Name Value Range Interpretation Code Description Data Serena rce(s) Supporting Document(s) POC NOVA GLU 132 mg/dL (70-99) H [facility] PERFORMED BY [facility] ID Date Data Source [id number] 09/16/2020 06:20:07 AM EDT [facility] Name Value Range Interpretation Code Description Data Serena rce(s) Supporting Document(s) CALCIUM 8.6 mg/dL (8.4-10.2) [facility] ID Date Data Source [id number] 09/15/2020 06:16:59 PM EDT [facility] Name Value Range Interpretation Code Description Data Serena rce(s) Supporting Document(s) POC NOVA GLU 270 mg/dL (70-99) H [facility] ID Date Data Source [id number] 09/15/2020 02:45:53 PM EDT [facility] Name Value Range Interpretation Code Description Data Serena rce(s) Supporting Document(s) POC NOVA GLU 180 mg/dL (70-99) H [facility]FOR[facility] ID Date Data Source [id number] 09/15/2020 11:50:20 AM EDT [facility] Name Value Range Interpretation Code Description Data Serena rce(s) Supporting Document(s) POC NOVA GLU 137 mg/dL (70-99) H Lab Dex LAY PERFORMED BY [facility] ID Date Data Source [id number] 09/15/2020 11:18:29 AM EDT [facility] INFORMATIONPatient MRN Name Date of Age Gend*PT [id number] Juan Nielson 1945 74 years M SDCXPT Location Admission Date/Time Visit ID Attending ProviderPERIOP POOL 09/15/20 0809 --- Lorri Fraser MD([id number]) EPI ID CSN Admitting Provider [id number] Lorri Fraser MD([id number])DATE OF SURGERY: 09/15/20ATTENDING: LORRI FRASER MDPRE OPERATIVE DIAGNOSIS: right Hurthle cell carcinomaPOST OP DIAGNOSIS: samePROCEDURE: Completion thyroidectomy with neuromonitoringINDICATIONS: 74-year-old gentleman who underwent a right lobectomy last September2019. 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 However his right recurrent nerve wastemporarily paralyzed, it has recovered. Then Covid occurred. Then there weresome delays in scheduling his completion thyroidectomy. Ultimately he presentstoday for completion left lobectomy so he can get adjuvant radioactive iodine.OPERATIVE FINDINGS: Normal-appearing left thyroid lobe return nerve stimulatedon the left side after of his normal lobe. Possible left upper parathyroidseen. No adenopathy.PROCEDURE DETAILS:Consent obtained from patient. He underwent general anesthesia without incide nt.Intubated with difficulty. No antibiotics were indicated. A collar incision wasused in a natural skin crease. The skin and platysma were divided. Subplatysmalflaps were raised. The strap muscles were then split in the midline. The isthmuswas mobilized and divided. No large node or pyramidal lobe seenThe left lobe was mobilized. The upper pole vessels were divided with Ligasure..The left with small without nodules. The recurrent nerve was found after takingdown the upper pole and dividing the middle thyroid vein close to the thyroidgland. The nerve was traced with neuro monitoring and was deep to ourdissection. I continued with the dissection until the lobe was held only by theligament of plascencia. I then divided with bipolar the ligament of Plascencia above thepath of the nerve. I did not appreciate any adenopathy. I left a portion of thetubercle of Zuckerkandl adjacent to the nerve. I did not want to injure hisleft nerve. I placed hemostatic agent. I then closed strap muscle in themidline with several interrupted sutures.Then I re approximated the platysma. The skin was closed with running monocrylfollowed by steristrips. A dressing was applied. He tolerated well. Sponge andneedle counts were correct.Specimens; left thyroid lobeComplications: none Name Value Range Interpretation Code Description Data Serena rce(s) Supporting Document(s) ID Date Data Source [id number] 09/15/2020 10:05:18 AM EDT [facility] INFORMATIONPatient MRN Name Date of Age Gend*PT [id number] Juan Nielson 1945 74 years M SDCXPT Location Admission Date/Time Visit ID Attending Provider --- --- --- --- EPI ID CSN Admitting Provider [id number] ---AirwayPatient location during procedure: ORUrgency: electiveDifficult airway: noAdvanced airway equipment used: noIndications and Patient ConditionIndications for airway management: anesthesiaPreoxygenated: yesPatient position: sniffingIn-line stabilization: noMask ventilation: 1 - vent by maskFinal Airway/ApproachesFinal airway type: ETTNumber of attempts at final approach: 1Number of other approaches attempted: 0Final Airway DetailsFinal ETT airway: NIM tubeCuffed: yesTechnique used for successful ETT placement: direct laryngoscopyCricoid pressure: noRSI: noInsertion site: oralBlade type/size: MAC 3.5ETT size: 7.0 mmMeasured from: lipsETT to lips: 22 cmPlacement verified by: chest auscultation and + [id number]: equal breath sounds bilateralGrade view: grade I - full view of glottis Name Value Range Interpretation Code Description Data Serena rce(s) Supporting Document(s) ID Date Data Source [id number] 09/15/2020 09:36:43 AM EDT [facility] Name Value Range Interpretation Code Description Data Serena rce(s) Supporting Document(s) POC NOVA GLU 143 mg/dL (70-99) H Lab [facility] PERFORMED BY [facility] ID Date Data Source [id number] 09/15/2020 08:53:40 AM EDT [facility] NT INFORMATIONPatient MRN Name Date of Age Gend*PT [id number] Juan Nielson 1945 74 years M SDCXPT Location Admission Date/Time Visit [facility]809 --- Lorri Fraser MD([id number]) EPI ID CSN Admitting Provider [id number] Lorri Fraser MD([id number])H&P reviewed. The patient was examined and there are no changes to the H&P.Lorri Fraser MD8:53 AM Name Value Range Interpretation Code Description Data [facility] rce(s) Supporting Document(s) ID Date Data Source [id number] 09/19/2020 04:56:26 PM EDT Lab [facility] [address] [id number]# Surgical Pathology ReportAccession #:[id number](s) ReceivedA: Left thyroid lobe, stitch at upper lobeClinical Diagnosis and HistoryWidely invasive Hurthle cell carcinoma of right lobe, completely excised([id number]). DIAGNOSISTHYROID, LEFT LOBE, LOBECTOMY: THYROID TISSUE WITH TWO INCIDENTAL PAPILLARY MICROCARCINOMAS, 4MM AND 0.3 MM. SEE COMMENT. CommentsThe sections contain benign thyroid tissue with foci of noninvasivefollicular structures with nuclei exhibiting grooves and clearing,characteristic of papillary carcinoma. Neither focus shows vascularinvasion and both lesions are completely excised. No evidence of Hurthlecell carcinoma is present. Gross DescriptionReceived in formalin labeled "left thyroid lobe stitch in upper pole" is a3 gram, 3.2 x 2.0 x 1.1 cm lobe of thyroid with a suture in the upperpole. The external surface is rodriguez-pink to red-brown, shaggy, cauterizedhowever intact. The specimen is inked blue and serially sectioned to showpale rodriguez-red to white mottled dull cut surfaces. No discrete masses areidentified. The specimen is sequentially submitted in its entirety fromthe upper to lower pole in cassettes A1-A4. Blocks A1 and A2, Levels x4. jgllmr/skl Reported: 09/19/2020Electronically Signed Out By Tanvir Simmons MD [facility] [place] [address] [id number] component performed at [facility] [employer] [facility], [facility], [address] [place] [address], [phone].Reported at [facility], [address] [place] [address], [phone]. This report may includeimmunohistochemical or in-situ hybridization results. Testing wasdeveloped and the performance characteristics determined by [employer] as required by CLIA '88. The FDA hasdetermined that approval for specific use is not necessary for clinicaluse. The quality of Hematoxylin and Eosin stains and as applicable, forall immunohistochemical and/or special stains, including positive andnegative controls, were reviewed and considered appropriate.ICD codes C73CPT codesA: 16896J Name Value Range Interpretation Code Description Data Serena rce(s) Supporting Document(s) ID Date Data Source [id number] 09/10/2020 09:20:00 AM EDT [facility] Name Value Range Interpretation Code Description Data Serena rce(s) Supporting Document(s) SARS coronavirus 2 RNA [facility] This lab was ordered by [facility] and reported by [facility]. ID Date Data Source [id number] 09/11/2020 12:07:48 PM EDT [facility] Name Value Range Interpretation Code Description Data Serena rc(s) Supporting Document(s) SARS-COV-2 JUAN PABLO [facility] Not DetectedReference range: Not Detecte d This nucleic acid amplification test was developed and its performance characteristics determined by [facility]. Nucleic acid amplification tests include PCR and TMA. This test has not been FDA cleared or approved. This test has been authorized by FDA under an Emergency Use Authorization (EUA). This test is only authorized for the duration of time the declaration that circumstances exist justifying the authorization of the emergency use of in vitro diagnostic tests for detection of SARS-CoV-2 virus and/or diagnosis of COVID-19 infection under section 564(b)(1) of the Act, 21 U.S.C. 360bbb-3(b) (1), unless the authorization is terminated or revoked sooner. When diagnostic testing is negative, the possibility of a false negative result should be considered in the context of a patient's recent exposures and the presence of clinical signs and symptoms consistent with COVID- 19. An individual without symptoms of COVID- 19 and who is not shedding SARS -CoV-2 virus would expect to have a negative (not detected) result in this assay. Performed At: [facility] [address] [id number] Gerardo Snider MD Ph:[phone] ID Date Data Source [id number] 09/02/2020 10:13:39 AM EDT [facility]PAT[facility] NT INFORMATIONPatient MRN Name Date of Age Gend*PT [id number] Juan Nielson 1945 74 years M OPPT Location Admission Date/Time Visit ID Attending Provider --- --- --- Lorri Fraser MD([id number]) EPI ID CSN Admitting Provider [id number] ---OUTPATIENT / OBSERVATIONAL SURGICAL OR INVASIVE PROCEDUREName: Juan Chandler Amo : 1945 Sex: male Care Provider: Jerzy TREVINO Physician: Dr. Fraser.HISTORY OF PRESENT ILLNESS: This is a 74 years old white male with a history ofthyroid cancer. Patient underwent right thyroid lobectomy on 10/12/2019 with . He complains of occasional globus pharyngeus. Denies any dyspnea,dysphasia, hoarseness, choking sensation, palpitations or tremors. Subsequentlyhe met with Dr. Fraser for surgical intervention. All options were discussedand he has elected to undergo THYROIDECTOMY, SUBTOTAL (LOBECTOMY) LEFT on09/15/2020.Initial surgery was scheduled for 07/30/2020, patient states "it was canceledbecause doctor got sick".PAST MEDICAL HISTORY:Past Medical History:Diagnosis Date Anxiety Basal cell carcinoma face and back Chronic low back pain Depression Diabetes mellitus, type II Diaphragmatic hernia Disc degeneration, lumbar Glaucoma Hiatal hernia Hyperlipidemia Hypertension Hypothyroidism Kidney stone Neuropathy Bilateral feet Thyroid cancer Thyroid nodulePAST SURGICAL HISTORY:Past Surgical History:Procedure Laterality Date ANKLE FUSION Right APPENDECTOMY BACK SURGERY N/A 07/22/2014 Procedure: EXPLORATORY LUMBAR THORACIC WOUND, T7/8 LAMINECTOMY, EVACUATION OFEPIDURAL HEMATOMA, REMOVAL OF SPINAL CORD STIMULATOR; Surgeon: MD Navarro; [facility]; Service: Spine; Laterality: N/A; COLONOSCOPY DIAPHRAGMATIC HERNIA REPAIR FRACTURE SURGERY Right ankle PAIN PROCEDURE N/A 07/22/2014 Procedure: LAMINECTOMY, THORACIC INSERTION OF SPINAL CORD STIMULATOR ANDGENERATOR ; Surgeon: Juan Strong MD; Location[facility]; Service:Pain Management; Laterality: N/A; skin lesions removed from face SPINAL CORD STIMULATOR REMOVAL THYROID SURGERY N/A 10/12/2019 Procedure: RIGHT THYROID LOBECTOMY; Surgeon: Lorri Fraser MD; Laterality:N/A; TONSILLECTOMY UPPER GASTROINTESTINAL ENDOSCOPYALLERGIES: No Known Drug AllergiesMEDICATIONS:Prior to Admission medicationsMedication Sig Start Date End Date Taking? Authorizing Provideraspirin (ASPIR-LOW) 81 MG EC tablet Take 81 mg by mouth daily HistoricalProvider, MDdorzolamide-timolol (COSOPT) 22.3-6.8 MG/ML ophthalmic solution Administer 1drop to both eyes 2 (two) times a day Historical Provider, levothyroxine (SYNTHROID, LEVOTHROID) 137 MCG tablet Take 137 mcg by mouth dailyHistorical Provider, lisinopril (PRINIVIL,ZESTRIL) 20 MG tablet Take 20 mg by mouth dailyHistorical Provider, CoryetFORMIN (GLUCOPHAGE) 1000 MG tablet Take 1,000 mg by mouth 2 (two) times a daywith meals Historical Provider, CORYultiple Vitamins-Minerals (CENTRUM SILVER PO) Take 1 tablet by mouth dailyHistorical Provider, oxyCODONE-acetaminophen (PERCOCET) 10-325 MG per tablet Take 1 tablet by mouth 3(three) times a day as needed for pain Historical Provider, MDpregabalin (LYRICA) 200 MG capsule Take 200 mg by mouth 3 (three) times a day08/04/19 Historical Provider, MDsimvastatin (ZOCOR) 40 MG tablet Take 40 mg by mouth nightly HistoricalProvider, tamsulosin (FLOMAX) 0.4 MG CAPS Take 1 capsule (0.4 mg total) by mouth daily10/13/19 Maged Barboza, PAmetFORMIN (GLUCOPHATE-XR) 500 MG 24 hr tablet Take 500 mg by mouth 2 (two) timesa day 09/02/20 Historical Provider, Shiela HistoryTobacco Use Smoking status: Former Smoker Packs/day: 1.50 Years: 20.00 Pack years: 30.00 Types: Cigarettes Last attempt to quit: 1983 Years since quittin.7 Smokeless tobacco: Never UsedSubstance Use Topics Alcohol use: Yes Comment: 1 beer twice weekly Drug use: NoFamily HistoryProblem Relation Age of Onset Heart disease Mother Heart disease Father Hypertension Brother Arthritis Brother Malig Hyperthermia Neg HxREVIEW OF SYSTEMS:Respiratory: Denies any shortness of breath, cough, yellow sputum production orwheezing.Cardiovascular: Denies any chest pain, pressure or tightness. Denies anyparoxysmal nocturnal dyspnea or orthopnea.GI: Denies nausea, vomiting, diarrhea, constipation or melena.Neuro logic: Denies any numbness, tingling, tremors or syncope.Vascular: Denies any edema. Denies claudication.PHYSICAL EXAM:GENERAL: He is a 74 years old, pleasant white male, in no acute distress at timeof examination. Vitals on arrival to the office are BP (!) 143/92 (BP Location:Right upper arm, Patient Position: Sitting) Comment: missed bp meds this am |Pulse 78 | Temp 97 F (Temporal) | Ht 1.727 m (5' 8") | Wt 94.1 kg (207 lb 8oz) | SpO2 95% | BMI 31.55 kg/m Body mass index is 31.55 kg/m ..Skin is pink, warm, and dry.NECK: He has a grade 4 airway. Neck is supple, midline, without cervicaladenopathy. No thyromegaly. No carotid bruits.MENTAL / NEUROLOGICAL STATUS: [id number]: Clear to auscultation. No wheezes, rhonchi or crackles.HEART: Rate rhythm regular. S1, S2. No murmur, rub or gallop.ABDOMEN: Obese. Bowel sounds positive times four. Soft, non tender. No reboundtenderness. No hepatosplenomegaly. Negative CVAT.EXTREMITIES: Pulses are symmetrical. +Right ankle edema.OPERATIVE SITE: Neck without rashes.Anesthesia complications: [facility] Frailty [facility] :: 3/10 Managing Well (medical problems are well controlled,but are not regularly active beyond routine walking).Stop Bang Questionnaire - Total Score:STOP-Bang Total Score: 3ASSESSMENT: Primary Diagnosis/Indication: Thyroid cancer.PLAN: Procedure: THYROIDECTOMY, SUBTOTAL (LOBECTOMY) LEFT.09/02/2020 10:13 Efe España, NPThis document or parts of this document, were dictated using iSkoot software. A reasonable attempt at proofreading has beenmade to minimize errors. Please call with any questions or corrections. Name Value Range Interpretation Code Description Data Serena rce(s) Supporting Document(s) Procedure Social History Code Duration Value Status Description Data Source(s ) Smoking 03/18/2021 12:00:00 AM EDT Former Smoker completed Former Smoker eCW1 ([facility]) Smoking 03/18/2021 12:00:00 AM EDT Former Smoker completed Former Smoker eCW1 ([facility]) Alcohol intake 09/16/2020 12:00:00 AM EDT Yes completed [facility] Cigarette pack-years 09/16/2020 12:00:00 AM EDT UNK completed [facility] Cigarettes smoked current (pack per day) - Reported 09/16/20 12:00:00 AM EDT UNK completed [facility] Smoking 09/16/2020 12:00:00 AM EDT Former smoker completed Former smoker [facility] Smoking 09/12/2020 12:00:00 AM EDT Former Smoker completed Former Smoker eCW1 ([facility]) Smoking 09/12/2020 12:00:00 AM EDT Former Smoker completed Former Smoker eCW1 ([facility]) Vital Signs ID Date Data Source UNK Name Value Range Interpretation Code Description Data Source(s) Systolic blood pressure 149 mm[Hg] 149 mm[Hg] A THENA ([facility]) Diastolic blood pressure 92 mm[Hg] 92 mm[Hg] NORA ([facility]) Body height 67 [in_i] 67 [in_i] NORA ([facility]) Diastolic blood pressure 95 mm[Hg] 95 mm[Hg] NORA ([facility]) Body height 67 [in_i] 67 [in_i] NORA ([facility]) Systolic blood pressure 169 mm[Hg] 169 mm[Hg] A THENA ([facility]) Diastolic blood pressure 95 mm[Hg] 95 mm[Hg] NORA ([facility]) Body height 67 [in_i] 67 [in_i] NORA ([facility]) Systolic blood pressure 169 mm[Hg] 169 mm[Hg] A THENA ([facility]) Diastolic blood pressure 95 mm[Hg] 95 mm[Hg] NORA ([facility]) Body height 67 [in_i] 67 [in_i] NORA ([facility]) Systolic blood pressure 169 mm[Hg] 169 mm[Hg] A THENA ([facility]) Systolic blood pressure 156 mm[Hg] 156 mm[Hg] A THENA ([facility]) Diastolic blood pressure 86 mm[Hg] 86 mm[Hg] NORA ([facility]) Body height 67 [in_i] 67 [in_i] NORA ([facility]) Diastolic blood pressure 86 mm[Hg] 86 mm[Hg] NORA ([facility]) Body height 67 [in_i] 67 [in_i] NORA ([facility]) Systolic blood pressure 156 mm[Hg] 156 mm[Hg] A THENA ([facility]) Diastolic blood pressure 86 mm[Hg] 86 mm[Hg] NORA ([facility]) Body height 67 [in_i] 67 [in_i] NORA ([facility]) Systolic blood pressure 156 mm[Hg] 156 mm[Hg] A THENA ([facility]) Body height 67 [in_i] 67 [in_i] NORA ([facility]) Diastolic blood pressure 86 mm[Hg] 86 mm[Hg] NORA ([facility]) Systolic blood pressure 156 mm[Hg] 156 mm[Hg] A THENA ([facility]) Body weight 207 [lb_av] 207 [lb_av] eCW1 ([facility]) Body height 67 [in_i] 67 [in_i] eCW1 ([facility]) Body mass index (BMI) [Ratio] 32.42 kg/m2 32.42 kg/m2 eCW1 ([facility]) Heart rate 75 /min 75 /min eCW1 ([facility]) Respiratory rate 18 /min 18 /min eCW1 ([facility]) Systolic blood pressure 158 mm[Hg] 158 mm[Hg] e CW1 ([facility]) Diastolic blood pressure 100 mm[Hg] 100 mm[Hg] eCW1 ([facility]) Diastolic blood pressure 77 mm[Hg] 77 mm[Hg] NORA ([facility]) Body height 67 [in_i] 67 [in_i] NORA ([facility]) Systolic blood pressure 147 mm[Hg] 147 mm[Hg] A THENA ([facility]) Diastolic blood pressure 77 mm[Hg] 77 mm[Hg] NORA ([facility]) Body height 67 [in_i] 67 [in_i] NORA ([facility]) Systolic blood pressure 147 mm[Hg] 147 mm[Hg] A THENA ([facility]) Diastolic blood pressure 77 mm[Hg] 77 mm[Hg] NORA ([facility]) Body height 67 [in_i] 67 [in_i] NORA ([facility]) Systolic blood pressure 147 mm[Hg] 147 mm[Hg] A THENA ([facility]) Diastolic blood pressure 77 mm[Hg] 77 mm[Hg] NORA ([facility]) Body height 67 [in_i] 67 [in_i] NORA ([facility]) Systolic blood pressure 147 mm[Hg] 147 mm[Hg] A THENA ([facility]) Diastolic blood pressure 77 mm[Hg] 77 mm[Hg] NORA ([facility]) Body height 67 [in_i] 67 [in_i] NORA ([facility]) Systolic blood pressure 147 mm[Hg] 147 mm[Hg] A THENA ([facility]) Diastolic blood pressure 77 mm[Hg] 77 mm[Hg] NORA ([facility]) Body height 67 [in_i] 67 [in_i] NORA ([facility]) Systolic blood pressure 147 mm[Hg] 147 mm[Hg] A THENA ([facility]) Diastolic blood pressure 77 mm[Hg] 77 mm[Hg] NORA ([facility]) Body height 67 [in_i] 67 [in_i] NORA ([facility]) Systolic blood pressure 147 mm[Hg] 147 mm[Hg] A THENA ([facility]) Body surface area Derived from formula 2.06 m2 2.06 m2 [facility] ([facility], ) Systolic blood pressure 142 mm[Hg] 142 mm[Hg] M EDENT ([facility], ) Diastolic blood pressure 82 mm[Hg] 82 mm[Hg] [facility] ([facility], ) Body height 67 [in_i] 67 [in_i] [facility] ([facility], ) 5'7" Body weight 208.38 [lb_av] 208.38 [lb_av] MEDEN T ([facility], ) Body mass index (BMI) [Ratio] 32.6 kg/m2 32.6 k g/m2 [facility] ([facility], ) [place] body weight 148 [lb_av] 148 [lb_av] MEDEN T ([facility], ) Body weight 94.519 kg 94.519 kg [facility] ([facility], ) Diastolic blood pressure 86 mm[Hg] 86 mm[Hg] NORA ([facility]) Body height 67 [in_i] 67 [in_i] NORA ([facility]) Systolic blood pressure 148 mm[Hg] 148 mm[Hg] A THENA ([facility]) Diastolic blood pressure 86 mm[Hg] 86 mm[Hg] NORA ([facility]) Body height 67 [in_i] 67 [in_i] NORA ([facility]) Systolic blood pressure 148 mm[Hg] 148 mm[Hg] A THENA ([facility]) Diastolic blood pressure 86 mm[Hg] 86 mm[Hg] NORA ([facility]) Body height 67 [in_i] 67 [in_i] NORA ([facility]) Systolic blood pressure 148 mm[Hg] 148 mm[Hg] A THENA ([facility]) Diastolic blood pressure 86 mm[Hg] 86 mm[Hg] NORA ([facility]) Body height 67 [in_i] 67 [in_i] NORA ([facility]) Systolic blood pressure 148 mm[Hg] 148 mm[Hg] A THENA ([facility]) Diastolic blood pressure 86 mm[Hg] 86 mm[Hg] NORA ([facility]) Body height 67 [in_i] 67 [in_i] NORA ([facility]) Systolic blood pressure 148 mm[Hg] 148 mm[Hg] A THENA ([facility]) Diastolic blood pressure 86 mm[Hg] 86 mm[Hg] NORA ([facility]) Body height 67 [in_i] 67 [in_i] NORA ([facility]) Systolic blood pressure 148 mm[Hg] 148 mm[Hg] A THENA ([facility]) Diastolic blood pressure 86 mm[Hg] 86 mm[Hg] NORA ([facility]) Body height 67 [in_i] 67 [in_i] NORA ([facility]) Systolic blood pressure 148 mm[Hg] 148 mm[Hg] A THENA ([facility]) Diastolic blood pressure 86 mm[Hg] 86 mm[Hg] NORA ([facility]) Body height 67 [in_i] 67 [in_i] NORA ([facility]) Systolic blood pressure 148 mm[Hg] 148 mm[Hg] A THENA ([facility]) Systolic blood pressure 150 mm[Hg] 150 mm[Hg] M EDENT ([facility]) Diastolic blood pressure 80 mm[Hg] 80 mm[Hg] [facility] ([facility]) Body height 67 [in_i] 67 [in_i] [facility] ([facility]) 5'7" Body weight 205.00 [lb_av] 205.00 [lb_av] MEDEN T ([facility]) Body mass index (BMI) [Ratio] 32.1 kg/m2 32.1 k g/m2 [facility] ([facility]) [place] body weight 148 [lb_av] 148 [lb_av] [facility] Body weight 92.988 kg 92.988 kg [facility] ([facility]) Body surface area Derived from formula 2.04 m2 2.04 m2 [facility] ([facility]) Diastolic blood pressure 83 mm[Hg] 83 mm[Hg] [facility] ([facility]) Body height 67 [in_i] 67 [in_i] [facility] ([facility]) Systolic blood pressure 158 mm[Hg] 158 mm[Hg] A THENA ([facility]) Diastolic blood pressure 83 mm[Hg] 83 mm[Hg] [facility] ([facility]) Body height 67 [in_i] 67 [in_i] [facility] ([facility]) Systolic blood pressure 158 mm[Hg] 158 mm[Hg] A THENA ([facility]) Diastolic blood pressure 83 mm[Hg] 83 mm[Hg] [facility] ([facility]) Body height 67 [in_i] 67 [in_i] [facility] ([facility]) Systolic blood pressure 158 mm[Hg] 158 mm[Hg] A THENA ([facility]) Diastolic blood pressure 83 mm[Hg] 83 mm[Hg] [facility] ([facility]) Diastolic blood pressure 83 mm[Hg] 83 mm[Hg] [facility] ([facility]) Body height 67 [in_i] 67 [in_i] [facility] ([facility]) Systolic blood pressure 158 mm[Hg] 158 mm[Hg] A THENA ([facility]) Body height 67 [in_i] 67 [in_i] [facility] ([facility]) Systolic blood pressure 158 mm[Hg] 158 mm[Hg] A THENA ([facility]) Diastolic blood pressure 83 mm[Hg] 83 mm[Hg] [facility] ([facility]) Body height 67 [in_i] 67 [in_i] [facility] ([facility]) Systolic blood pressure 158 mm[Hg] 158 mm[Hg] A THENA ([facility]) Diastolic blood pressure 83 mm[Hg] 83 mm[Hg] [facility] ([facility]) Body height 67 [in_i] 67 [in_i] [facility] ([facility]) Systolic blood pressure 158 mm[Hg] 158 mm[Hg] A THENA ([facility]) Body height 67 [in_i] 67 [in_i] [facility] ([facility]) Systolic blood pressure 158 mm[Hg] 158 mm[Hg] A THENA ([facility]) Diastolic blood pressure 83 mm[Hg] 83 mm[Hg] [facility] ([facility]) Diastolic blood pressure 83 mm[Hg] 83 mm[Hg] [facility] ([facility]) Body height 67 [in_i] 67 [in_i] [facility] ([facility]) Systolic blood pressure 158 mm[Hg] 158 mm[Hg] A THENA ([facility]) Diastolic blood pressure 83 mm[Hg] 83 mm[Hg] [facility] ([facility]) Body height 67 [in_i] 67 [in_i] [facility] ([facility]) Systolic blood pressure 158 mm[Hg] 158 mm[Hg] A THENA ([facility]) Diastolic blood pressure 83 mm[Hg] 83 mm[Hg] [facility] ([facility]) Body height 67 [in_i] 67 [in_i] [facility] ([facility]) Systolic blood pressure 158 mm[Hg] 158 mm[Hg] A THENA ([facility]) Diastolic blood pressure 83 mm[Hg] 83 mm[Hg] [facility] ([facility]) Body height 67 [in_i] 67 [in_i] [facility] ([facility]) Systolic blood pressure 158 mm[Hg] 158 mm[Hg] A THENA ([facility]) Diastolic blood pressure 83 mm[Hg] 83 mm[Hg] [facility] ([facility]) Body height 67 [in_i] 67 [in_i] [facility] ([facility]) Systolic blood pressure 158 mm[Hg] 158 mm[Hg] A THENA ([facility]) Oxygen saturation in Arterial blood by Pulse oximetry 99 % 99 % [facility] ([facility]) Systolic blood pressure 135 mm[Hg] 135 mm[Hg] M EDENT ([facility]) Heart rate 68 /min 68 /min [facility] ([facility]) Body temperature 97.0 [degF] 97.0 [degF] [facility] ([facility]) Diastolic blood pressure 82 mm[Hg] 82 mm[Hg] [facility] ([facility]) Body height 67 [in_i] 67 [in_i] [facility] ([facility]) 5'7" Body weight 214.00 [lb_av] 214.00 [lb_av] MEDEN T ([facility]) Body mass index (BMI) [Ratio] 33.5 kg/m2 33.5 k g/m2 [facility] ([facility]) Diastolic blood pressure 80 mm[Hg] 80 mm[Hg] [facility] ([facility]) Body height 67 [in_i] 67 [in_i] [facility] ([facility]) Systolic blood pressure 170 mm[Hg] 170 mm[Hg] A THENA ([facility]) Diastolic blood pressure 80 mm[Hg] 80 mm[Hg] [facility] ([facility]) Diastolic blood pressure 80 mm[Hg] 80 mm[Hg] [facility] ([facility]) Body height 67 [in_i] 67 [in_i] [facility] ([facility]) Systolic blood pressure 170 mm[Hg] 170 mm[Hg] A THENA ([facility]) Body height 67 [in_i] 67 [in_i] [facility] ([facility]) Systolic blood pressure 170 mm[Hg] 170 mm[Hg] A THENA ([facility]) Diastolic blood pressure 80 mm[Hg] 80 mm[Hg] [facility] ([facility]) Body height 67 [in_i] 67 [in_i] [facility] ([facility]) Systolic blood pressure 170 mm[Hg] 170 mm[Hg] A THENA ([facility]) Diastolic blood pressure 80 mm[Hg] 80 mm[Hg] [facility] ([facility]) Body height 67 [in_i] 67 [in_i] [facility] ([facility]) Systolic blood pressure 170 mm[Hg] 170 mm[Hg] A THENA ([facility]) Diastolic blood pressure 80 mm[Hg] 80 mm[Hg] [facility] ([facility]) Body height 67 [in_i] 67 [in_i] [facility] ([facility]) Systolic blood pressure 170 mm[Hg] 170 mm[Hg] A THENA ([facility]) Diastolic blood pressure 80 mm[Hg] 80 mm[Hg] [facility] ([facility]) Body height 67 [in_i] 67 [in_i] [facility] ([facility]) Systolic blood pressure 170 mm[Hg] 170 mm[Hg] A THENA ([facility]) Diastolic blood pressure 80 mm[Hg] 80 mm[Hg] [facility] ([facility]) Body height 67 [in_i] 67 [in_i] [facility] ([facility]) Systolic blood pressure 170 mm[Hg] 170 mm[Hg] A THENA ([facility]) Diastolic blood pressure 80 mm[Hg] 80 mm[Hg] [facility] ([facility]) Body height 67 [in_i] 67 [in_i] [facility] ([facility]) Systolic blood pressure 170 mm[Hg] 170 mm[Hg] A THENA ([facility]) Diastolic blood pressure 80 mm[Hg] 80 mm[Hg] [facility] ([facility]) Body height 67 [in_i] 67 [in_i] [facility] ([facility]) Systolic blood pressure 170 mm[Hg] 170 mm[Hg] A THENA ([facility]) Diastolic blood pressure 80 mm[Hg] 80 mm[Hg] [facility] ([facility]) Body height 67 [in_i] 67 [in_i] [facility] ([facility]) Systolic blood pressure 170 mm[Hg] 170 mm[Hg] A THENA ([facility]) Diastolic blood pressure 80 mm[Hg] 80 mm[Hg] [facility] ([facility]) Body height 67 [in_i] 67 [in_i] [facility] ([facility]) Systolic blood pressure 170 mm[Hg] 170 mm[Hg] A THENA ([facility]) Diastolic blood pressure 80 mm[Hg] 80 mm[Hg] [facility] ([facility]) Body height 67 [in_i] 67 [in_i] [facility] ([facility]) Systolic blood pressure 170 mm[Hg] 170 mm[Hg] A THENA ([facility]) Diastolic blood pressure 80 mm[Hg] 80 mm[Hg] [facility] ([facility]) Body height 67 [in_i] 67 [in_i] [facility] ([facility]) Systolic blood pressure 170 mm[Hg] 170 mm[Hg] A THENA ([facility]) Systolic blood pressure 119 mm[Hg] 119 mm[Hg] [facility] Diastolic blood pressure 62 mm[Hg] 62 mm[Hg] [facility] Heart rate 70 /min 70 /min [facility] Body temperature 36.44 Nani 36.44 Nani [facility] Respiratory rate 16 /min 16 /min [facility] Oxygen saturation in Arterial blood by Pulse oximetry 93 % 93 % [facility] Body height 170.2 cm 170.2 cm [facility] Body weight 92.987 kg 92.987 kg [facility] Body mass index (BMI) [Ratio] 32.11 kg/m2 32.11 kg/m2 [facility] Respiratory rate 18 /min 18 /min eCW1 ([facility]) Body weight 207 [lb_av] 207 [lb_av] eCW1 ([facility]) Body height 67 [in_i] 67 [in_i] eCW1 ([facility]) Body temperature 97.3 [degF] 97.3 [degF] eCW1 ( [facility]) Body mass index (BMI) [Ratio] 32.42 kg/m2 32.42 kg/m2 eCW1 ([facility]) Systolic blood pressure 150 mm[Hg] 150 mm[Hg] e CW1 ([facility]) Diastolic blood pressure 82 mm[Hg] 82 mm[Hg] eCW1 ([facility]) Heart rate 73 /min 73 /min eCW1 ([facility]) Patient Treatment Plan of Care Planned Activity Planned Date Details Description Data Source (s) pregabalin 150 MG Oral Capsule [facility] ([facility]) methylprednisolone 4 mg tablets in a dose pack [facility] ([facility]) 24 HR Metformin hydrochloride 500 MG Extended Release Oral Tablet [facility] ([facility]) Fluad Quad (65yr up)(PF) 60 mcg (15 mcg x 4)/0.5mL IM syringe [facility]JECT [facility] Amoxicillin 875 MG / Clavulanate 125 MG Oral Tablet [facility] ([facility]) methylprednisolone 4 mg tablets in a dose pack [facility] ([facility]) 24 HR Metformin hydrochloride 500 MG Extended Release Oral Tablet [facility] ([facility]) Fluad Quad (65yr up)(PF) 60 mcg (15 mcg x 4)/0.5mL IM syringe INJECT DIRECTED [facility] methylprednisolone 4 mg tablets in a dose pack [facility] ([facility]) 24 HR Metformin hydrochloride 500 MG Extended Release Oral Tablet [facility] ([facility]) Fluad Quad (65yr up)(PF) 60 mcg (15 mcg x 4)/0.5mL IM syringe INJECT DIRECTED [facility] ([facility]) 24 HR Metformin hydrochloride 500 MG Extended Release Oral Tablet [facility] ([facility]) Fluad Quad (65yr up)(PF) 60 mcg (15 mcg x 4)/0.5mL IM syringe INJECT DIRECTED [facility] ([facility]) 24 HR Metformin hydrochloride 500 MG Extended Release Oral Tablet [facility] ([facility]) Fluad Quad (65yr up)(PF) 60 mcg (15 mcg x 4)/0.5mL IM syringe INJECT DIRECTED [facility] ([facility]) 24 HR Metformin hydrochloride 500 MG Extended Release Oral Tablet [facility] ([facility]) Fluad Quad (65yr up)(PF) 60 mcg (15 mcg x 4)/0.5mL IM syringe INJECT DIRECTED [facility] ([facility]) 24 HR Metformin hydrochloride 500 MG Extended Release Oral Tablet [facility] ([facility]) Fluad Quad (65yr up)(PF) 60 mcg (15 mcg x 4)/0.5mL IM syringe INJECT DIRECTED [facility] ([facility]) 24 HR Metformin hydrochloride 500 MG Extended Release Oral Tablet [facility] ([facility]) Fluad Quad (65yr up)(PF) 60 mcg (15 mcg x 4)/0.5mL IM syringe INJECT DIRECTED [facility] ([facility]) 24 HR Metformin hydrochloride 500 MG Extended Release Oral Tablet [facility] ([facility]) Fluad Quad (65yr up)(PF) 60 mcg (15 mcg x 4)/0.5mL IM syringe INJECT DIRECTED [facility] 24 HR Metformin hydrochloride 500 MG Extended Release Oral Tablet [facility] ([facility]) Fluad Quad (65yr up)(PF) 60 mcg (15 mcg x 4)/0.5mL IM syringe INJECT DIRECTED [facility] ([facility]) 24 HR Metformin hydrochloride 500 MG Extended Release Oral Tablet [facility] ([facility]) Fluad Quad (65yr up)(PF) 60 mcg (15 mcg x 4)/0.5mL IM syringe INJECT DIRECTED [facility] ([facility]) 24 HR Metformin hydrochloride 500 MG Extended Release Oral Tablet [facility] ([facility]) Fluad Quad (65yr up)(PF) 60 mcg (15 mcg x 4)/0.5mL IM syringe INJECT DIRECTED [facility] ([facility]) 24 HR Metformin hydrochloride 500 MG Extended Release Oral Tablet [facility] ([facility]) Fluad Quad (65yr up)(PF) 60 mcg (15 mcg x 4)/0.5mL IM syringe INJECT DIRECTED [facility] 24 HR Metformin hydrochloride 500 MG Extended Release Oral Tablet [facility]
[2021-10-14] MEDS ORDERED: ASPIRIN 81 MG CHEW TABLET PO ONE (06:30)
[2021-10-14] MEDS ORDERED: NITROGLYCERIN 0.4 MG SUBL TABLET SL PRN (06:30)
[2021-10-14 06:32] VITALS: BP 155/77
[2021-10-14 06:36] LABS: BASO % 0.5 % (0.0-1.0); EOS # 0.1 10^3/uL (0.0-0.5); EOS % 1.2 % (0.0-3.0); HEMATOCRIT 43.4 % (42.0-52.0); HEMOGLOBIN 14.1 g/dl (13.5-17.5); LYMPH # 2.6 10^3/uL (1.5-5.0); LYMPH % 35.5 % (24.0-44.0); MEAN CORPUSCULAR HEMOGLOBIN 30.3 pg (27.0-33.0); MEAN CORPUSCULAR HGB CONC 32.5 g/dl (32.0-36.5); MEAN CORPUSCULAR VOLUME 93.1 fl (80.0-96.0); MONO # 0.4 10^3/uL (0.0-0.8); MONO % 5.3 % (2.0-8.0); NEUTROPHILS # 4.2 10^3/uL (1.5-8.5); NEUTROPHILS % 57.1 % (36.0-66.0); PLATELET COUNT, AUTOMATED 152 10^3/uL (150-450); RED BLOOD COUNT 4.66 10^6/uL (4.30-6.10); WHITE BLOOD COUNT 7.4 10^3/uL (4.0-10.0)
[2021-10-14 07:04] LABS: MB/CK RELATIVE INDEX 3.15 (< OR =4); TROPONIN I 0.2 NG/ML (< 0.10)
[2021-10-14 07:05] LABS: BLOOD UREA NITROGEN 20 MG/DL (7-18); CALCIUM LEVEL 9.7 MG/DL (8.8-10.2); CARBON DIOXIDE LEVEL 30 MEQ/L (21-32); CHLORIDE LEVEL 102 MEQ/L (98-107); CREATININE FOR GFR 1.04 MG/DL (0.70-1.30); GLOMERULAR FILTRATION RATE > 60.0 (>42); GLUCOSE, FASTING 228 MG/DL (70-100); POTASSIUM SERUM 4.8 MEQ/L (3.5-5.1); SODIUM LEVEL 141 MEQ/L (136-145)
--- NOTE | 2021-10-14 07:06 | REPVR ---
PROCEDURE INFORMATION: Exam: XR Chest Exam date and time: 10/14/2021 6:31 AM Age: 75 years old Clinical indication: Pain; Other: Not specified; Additional info: Chest pain TECHNIQUE: Imaging protocol: XR of the chest. Views: 1 view. COMPARISON: CT Chest with contrast 03/20/2019 3:46 PM FINDINGS: Lungs: Unremarkable. No consolidation. Pleural spaces: Unremarkable. No pleural effusion. No pneumothorax. Heart/Mediastinum: Unremarkable. No cardiomegaly. Bones/joints: Degenerative changes and old rib trauma without evidence of acute fracture. IMPRESSION: No acute disease of the chest. Electronically signed by: Ac Coombs On 10/14/2021 07:06:19 AM
--- OUTSIDE RECORDS SUMMARY | 2021-10-14 08:13 | CCD ---
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 Name Role Phone Heber Mayes MD Unavailable [...] Unavailable Malick, Agatha Villalba MD Unavailable Unavailable Agtaha Teresa MD Unavailable Unavailable Malick, Agatha Villalba [...] Villalba MD Unavailable Unavailable Jumalon, M Julia LEARNING ANALYST Unavailable Unavailable Jumalon, M Julia LEARNING ANALYST Unavailable Unavailable Jumalon, M Julia LEARNING ANALYST Unavailable Unavailable Jumalon, M Julia LEARNING ANALYST Unavailable Unavailable Jumalon, M Julia LEARNING ANALYST Unavailable Unavailable Jumalon, M Julia LEARNING ANALYST Unavailable Unavailable Jumalon, M Julia LEARNING ANALYST Unavailable Unavailable Jumalon, M Julia LEARNING ANALYST Unavailable Unavailable Jumalon, M Julia LEARNING ANALYST Unavailable Unavailable Jumalon, M Julia LEARNING ANALYST Unavailable Unavailable Jumalon, M Julia LEARNING ANALYST Unavailable Unavailable Jumalon, M Julia LEARNING ANALYST Unavailable Unavailable Jumalon, M Julia LEARNING ANALYST Unavailable Unavailable Jumalon, M Julia LEARNING ANALYST Unavailable Unavailable Jumalon, M Julia LEARNING ANALYST Unavailable Unavailable Jumalon, M Julia LEARNING ANALYST Unavailable Unavailable Jumalon, M Julia LEARNING ANALYST Unavailable Unavailable Jumalon, M Julia LEARNING ANALYST Unavailable Unavailable Jumalon, M Julia LEARNING ANALYST Unavailable Unavailable Jumalon, M Julia LEARNING ANALYST Unavailable Unavailable Jumalon, M Julia LEARNING ANALYST Unavailable Unavailable Jumalon, M Julia LEARNING ANALYST Unavailable Unavailable Jumalon, M Julia LEARNING ANALYST Unavailable Unavailable Jumalon, M Julia LEARNING ANALYST Unavailable Unavailable Jumalon, M Julia LEARNING ANALYST Unavailable Unavailable Jumalon, M Julia LEARNING ANALYST Unavailable Unavailable Jumalon, M Jluia LEARNING ANALYST Unavailable Unavailable Jumalon, M Julia LEARNING ANALYST Unavailable Unavailable Jumalon, M Julia LEARNING ANALYST Unavailable Unavailable Jumalon, M Julia LEARNING ANALYST Unavailable Unavailable KOSTIV, SEDRICK Unavailable Unavailable Re-disclosure [...] is protected by Article 27-F of the [facility] Public Health law. If you continue you may have access to information: Regarding HIV / AIDS; Provided by facilities licensed or operated by the [facility] Office of Mental Health; or Provided by the [facility] Office for People With Developmental Disabilities. If such information is present, then the following [facility] mandated warning applies: This information has [...] law may result in a fine or mcfp sentence or both. A general authorization for the release of medical or other information is NOT sufficient authorization for further disc losure. Family History Family Member Name Family Member Gender Family Member Status Date o f Status Description Data Source(s) Unknown Male Problem MEDENT ([facility]) Unknown Male Problem MEDENT ([facility] ) Encounters Encounter Providers Location Date Indications Data Source(s ) Julia Claros, BASS VIOL REPAIRER: [id number] [facility] [address], [place] [address], Ph. Attender: Julia Claros [facility] 09/09/2021 12:00:00 AM EDT ATHE NA ([facility]) Unknown [address] [facility] [address] 05/11/2021 12:00:00 AM EDT eCW1 ([facility]) Enio Mayes MD: [id number] [facility] R out[address] [place] [address], Ph. Attender: Enio Mayes MD [facility] 05/08/2021 12:00:00 AM EDT NORA ([facility]) Enio Mayes MD: [address] [facility] [address], [place] [address], Ph. Attender: Enio Mayes MD [facility] 05/08/2021 12:00:00 AM EDT NORA ([facility]) Enio Mayes MD: [address] [facility] [address] [place] [place] [address], Ph. [phone] Attender: Enio Mayes MD [place] - [facility] 05/04/2021 12:00:00 AM EDT NORA ([facility]) Enio Mayes MD: [address], [place] [address], Ph. [phone] Attender: Enio Mayes MD [place] - [facility] 05/04/2021 12:00:00 AM EDT NORA ([facility]) Julia Claros, BASS VIOL REPAIRER: [address], [place] [address], Ph. Attender: Julia Seraketan [facility] 04/30/2021 12:00:00 AM EDT ATHE NA ([facility]) Julia Fuentes Chelaxiao, BASS VIOL REPAIRER: [address], [place] [address], Ph. Attender: Julia Claros [facility] - [facility] 04/30/2021 12:00:00 AM EDT ATHE NA ([facility]) Julia Claros, BASS VIOL REPAIRER: [address], [place] [address], Ph. Attender: Julia Chelacashketan [facility] - [facility] 04/30/2021 12:00:00 AM EDT ATHE NA ([facility]) Julia Fuentes Chelaxiao, BASS VIOL REPAIRER: [address], [place] [address], Ph. Attender: Julia Hyacinth [facility] - [facility] 04/02/2021 12:00:00 AM EDT ATHE NA ([facility]) Julia Claros, BASS VIOL REPAIRER: [address], [address], [place] [address], Ph. Attender: Julia Claros [facility] - [facility] 04/02/2021 12:00:00 AM EDT ATHE NA ([facility]) Julia Claros, BASS VIOL REPAIRER: [address], [address], [place] [address], Ph. Attender: Julia Claros [facility] - [facility] 04/02/2021 12:00:00 AM EDT ATHE NA ([facility]) Julia Claros, BASS VIOL REPAIRER: [address], [address], [place] [address], Ph. Attender: Julia Claros [facility] - [facility] 04/02/2021 12:00:00 AM EDT ATHE NA ([facility]) Enio Mayes MD: [address], [place] [address], Ph. Attender: Enio Mayes MD [place] - [facility] 03/19/2021 12:00:00 AM EDT NORA ([facility]) Enio Mayes MD: [address], [address], [place] [address], Ph. Attender: Enio Mayes MD [place] - [facility] 03/19/2021 12:00:00 AM EDT NORA ([facility]) Enio Mayes MD: [address], [place] [address], Ph. Attender: Enio Mayes MD [place] - [facility] 03/19/2021 12:00:00 AM EDT NORA ([facility]) Enio Mayes MD: [address], [address], [place] [address], Ph. Attender: Enio Mayes MD [place] - [facility] 03/19/2021 12:00:00 AM EDT NORA ([facility]) Enio Mayes MD: [address], [address], [place] [address], Ph. Attender: Enio Mayes MD [place] - [facility] 03/19/2021 12:00:00 AM EDT NORA ([facility]) Outpatient [address] [facility] [address] 03/18/2021 12:00:00 AM EDT [facility] ([facility]) Enio Mayes MD: [address], [place] [address], Ph. [phone] Attender: Enio Mayes MD [place] - [facility] 03/16/2021 12:00:00 AM EDT NORA ([facility]) Enio Mayes MD: [address], [address], [place] [address], Ph. [phone] Attender: Enio Mayes MD [place] - [facility] 03/16/2021 12:00:00 AM EDT NORA ([facility]) Enio Mayes MD: [address], [place] [address], Ph. [phone] Attender: Enio Mayes MD [place] - [facility] 03/16/2021 12:00:00 AM EDT NORA ([facility]) Enio Mayes MD: [address], [place] [address], Ph. [phone] Attender: Enio Mayes MD [place] - [facility] 03/16/2021 12:00:00 AM EDT NORA ([facility]) Enio Mayes MD: [address], [place] [address], Ph. [phone] Attender: Enio Mayes MD [place] - [facility] 03/16/2021 12:00:00 AM EDT NORA ([facility]) Enio Mayes MD: [address], [address], [place] [address], Ph. [phone] Attender: Enio Mayes MD [place] - [facility] 03/16/2021 12:00:00 AM EDT NORA ([facility]) Julia Claros, BASS VIOL REPAIRER: [address], [place] [address], Ph. Attender: Julia Claros [facility] - [facility] 03/02/2021 12:00:00 AM EDT ATHSabino NA ([facility]) Julia Claros, BASS VIOL REPAIRER: [address], [place] [address], Ph. Attender: Julia Claros [facility] - [facility] 03/02/2021 12:00:00 AM EDT ATHE NA ([facility]) Julia Claros, BASS VIOL REPAIRER: [address], [place] [address], Ph. Attender: Julia Claros [facility] - [facility] 03/02/2021 12:00:00 AM EDT ATHE NA ([facility]) Julia Claros, BASS VIOL REPAIRER: [address], [place] [address], Ph. Attender: Julia Claros [facility] - [facility] 03/02/2021 12:00:00 AM EDT ATHE NA ([facility]) Julia Claros, BASS VIOL REPAIRER: [address], [place] [address], Ph. Attender: Julia Claros [facility] - [facility] 03/02/2021 12:00:00 AM EDT ATHE NA ([facility]) Julia Claros, BASS VIOL REPAIRER: [address], [place] [address], Ph. Attender: Julia Claros [facility] - [facility] 03/02/2021 12:00:00 AM EDT ATHE NA ([facility]) Julia Claros, BASS VIOL REPAIRER: [address], [place] [address], Ph. Attender: Julia Claros [facility] - [facility] 03/02/2021 12:00:00 AM EDT ATHE NA ([facility]) Julia Claros, BASS VIOL REPAIRER: [address], [place] [address], Ph. Attender: Julia Claros [facility] - [facility] 01/12/2021 12:00:00 AM EST ATHE NA ([facility]) Julia Claros, BASS VIOL REPAIRER: [address], [place] [address], Ph. Attender: Julia Claros [facility] - [facility] 01/12/2021 12:00:00 AM EST ATHE NA ([facility]) Julia Claros, BASS VIOL REPAIRER: [address], [place] [address], Ph. Attender: Julia Claros [facility] - [facility] 01/12/2021 12:00:00 AM EST ATHE NA ([facility]) Julia Claros, BASS VIOL REPAIRER: [address], [place] [address], Ph. Attender: Julia Claros [facility] - [facility] 01/12/2021 12:00:00 AM EST ATHE NA ([facility]) Julia Claros, BASS VIOL REPAIRER: [address], [facility] [place] [address], Ph. Attender: Julia Claros [facility] - [facility] 01/12/2021 12:00:00 AM EST ATHE NA ([facility]) Julia Claros, BASS VIOL REPAIRER: [address], [place] [address], Ph. Attender: Julia Claros [facility] - [facility] 01/12/2021 12:00:00 AM EST ATHE NA ([facility]) Julia Claros, BASS VIOL REPAIRER: [address], [place] [address], Ph. Attender: Julia Claros [facility] - [facility] 01/12/2021 12:00:00 AM EST ATHE NA ([facility]) Julia Claros, BASS VIOL REPAIRER: [address], [place] [address], Ph. Attender: Julia Hyacinth LEARNING ANALYST [place] - [facility] 01/12/2021 12:00:00 AM EST ATHE NA ([facility]) Enio Mayes MD: [address]06 [address], [address], [place] [address], Ph. Attender: Enio Mayes MD [place] - [facility] 12/31/2020 12:00:00 AM EST NORA ([facility]) Enio Mayes MD: [address]94 [address], [address], [place] [address], Ph. Attender: Enio Mayes MD [place] - [facility] 12/31/2020 12:00:00 AM EST NORA ([facility]) Enio Mayes MD: [address]36 [address], [address], [place] [address], Ph. Attender: Enio Mayes MD [place] - [facility] 12/31/2020 12:00:00 AM EST NORA ([facility]) Enio Mayes MD: [address]259 [address], [address], [place] [address], Ph. Attender: Enio Mayes MD [place] - [facility] 12/31/2020 12:00:00 AM EST NORA ([facility]) Enio aMyes MD: [address]398 [address], [address], [place] [address], Ph. Attender: Enio Mayes MD [place] - [facility] 12/31/2020 12:00:00 AM EST NORA ([facility]) Enio Mayes MD: [address]27 [address], [address], [place] [address], Ph. Attender: Enio Mayes MD [place] - [facility] 12/31/2020 12:00:00 AM EST NORA ([facility]) Enio Mayes MD: [address]10 [address], [place] [address], Ph. Attender: Enio Mayes MD [place] - [facility] 12/31/2020 12:00:00 AM EST NORA ([facility]) Enio Mayes MD: [address]79 [address], [address], [place] [address], Ph. Attender: Enio LAY - [facility] 12/31/2020 12:00:00 AM EST NORA ([facility]) Enio Mayes MD: [address]05 [address], [address], [place] [address], Ph. Attender: Enio LAY - [facility] 12/31/2020 12:00:00 AM EST NORA ([facility]) Enio Mayes MD: [address]394 [address], [place] [address], Ph. [phone] Attender: Enio LAY - [facility] 12/26/2020 12:00:00 AM EST NORA ([facility]) Enio Mayes MD: [address]99 [address], [address], [place] [address], Ph. [phone] Attender: Enio LAY - [facility] 12/26/2020 12:00:00 AM EST NORA ([facility]) Enio Mayes MD: [address]53 [address], [address], [place] [address], Ph. [phone] Attender: Enio LAY - [facility] 12/26/2020 12:00:00 AM EST NORA ([facility]) Enio Mayes MD: [address]359 [address], [place] [address], Ph. [phone] Attender: Enio Mayes MD [place] - [facility] 12/26/2020 12:00:00 AM EST NORA ([facility]) Enio Mayes MD: [address]262 [address], [address], [place] [address], Ph. [phone] Attender: Enio Mayes MD [place] - [facility] 12/26/2020 12:00:00 AM EST NORA ([facility]) Enio Mayes MD: [address], [place] [address], Ph. [phone] Attender: Enio Mayes MD [place] - [facility] 12/26/2020 12:00:00 AM EST NORA ([facility]) Enio Mayes MD: [address]233 [address], [place] [address], Ph. [phone] Attender: Enio Mayes MD [place] - [facility] 12/26/2020 12:00:00 AM EST NORA ([facility]) Enio Mayes MD: [address]172 [address], [address], [place] [address], Ph. [phone] Attender: Enio Mayes MD [place] - [facility] 12/26/2020 12:00:00 AM EST NORA ([facility]) Enio Mayes MD: [address]25 [address], [place] [address], Ph. [phone] Attender: Enio Mayes MD [place] - [facility] 12/26/2020 12:00:00 AM EST NORA ([facility]) Enio Mayes MD: [address], [address], [place], [place] [address], Ph. [phone] Attender: Enio Mayes MD [place] - [facility] 12/26/2020 12:00:00 AM EST NORA ([facility]) Outpatient Attender: MELITON Akers/Zuri/Monty/[place] [facility] 12/25/2020 01:30:00 PM EST MEDENT ([facility]) Enio Mayes MD: [address]85 [address], [address], [place], [place] [address], Ph. Attender: Enio Mayes MD [place] - [facility] 12/18/2020 12:00:00 AM EST NORA ([facility]) Enio Mayes MD: [address]34 [address], [address], [place] [address], Ph. Attender: Enio LAY - [facility] 12/18/2020 12:00:00 AM EST NORA ([facility]) Enio Mayes MD: [address]855 [address], [place] [address], Ph. Attender: Enio LAY - [facility] 12/18/2020 12:00:00 AM EST NORA ([facility]) Enio Mayes MD: [address]18 [address], [address], [place], [place] [address], Ph. Attender: Enio LAY - [facility] 12/18/2020 12:00:00 AM EST NORA ([facility]) Enio Mayes MD: [address]229 [address], [address], [place] [address], Ph. Attender: Enio Mayes MD [place] - [facility] 12/18/2020 12:00:00 AM EST NORA ([facility]) Enio Mayes MD: 14936 [address], [place] [address], Ph. Attender: Enio Mayes MD [place] - [facility] 12/18/2020 12:00:00 AM EST NORA ([facility]) Enio Mayes MD: [address]261 [address], [address], [place] [address], Ph. Attender: Enio Mayes MD [place] - [facility] 12/18/2020 12:00:00 AM EST NORA ([facility]) Enio Mayes MD: [address]44 [address], [address], [place] [address], Ph. Attender: Enio LAY - [facility] 12/18/2020 12:00:00 AM EST NORA ([facility]) Enio Mayes MD: 57050 [address], [place] [address], Ph. Attender: Enio LAY - [facility] 12/18/2020 12:00:00 AM EST NORA ([facility]) Enio Mayes MD: [address]16 [address], [address], [place] [address], Ph. Attender: Enio LAY - [facility] 12/18/2020 12:00:00 AM EST NORA ([facility]) Enio Mayes MD: [address]70 [address], [address], [place] [address], Ph. Attender: Enio Mayes MD [place] - [facility] 12/18/2020 12:00:00 AM EST NORA ([facility]) Enio Mayes MD: [address]68 [address], [address], [place] [address], Ph. [phone] Attender: Enio Mayes MD [place] - [facility] 12/15/2020 12:00:00 AM EST NORA ([facility]) Enio Mayes MD: [address]37 [address], [address], [place] [address], Ph. [phone] Attender: Enio Mayes MD [place] - [facility] 12/15/2020 12:00:00 AM EST NORA ([facility]) Enio Mayes MD: [address]662 [address], [address], [place] [address], Ph. [phone] Attender: Enio Mayes MD [place] - [facility] 12/15/2020 12:00:00 AM EST NORA ([facility]) Enio Mayes MD: [address]4473 [address], [address], [place] [address], Ph. [phone] Attender: Enio Mayes MD [place] - [facility] 12/15/2020 12:00:00 AM EST NORA ([facility]) Enio Mayes MD: [address]40 [address], [address], [place] [address], Ph. [phone] Attender: Enio Mayes MD [place] - [facility] 12/15/2020 12:00:00 AM EST NORA ([facility]) Enio Mayes MD: [address]00 [address], [address], [place] [address], Ph. [phone] Attender: Enio Mayes MD [place] - [facility] 12/15/2020 12:00:00 AM EST NORA ([facility]) Enio Mayes MD: 59289 [address], [place] [address], Ph. [phone] Attender: Enio Mayes MD [place] - [facility] 12/15/2020 12:00:00 AM EST NORA ([facility]) Enio Mayes MD: 20827 [address], [address], [place] [address], Ph. [phone] Attender: Enio Mayes MD [place] - [facility] 12/15/2020 12:00:00 AM EST NORA ([facility]) Enio Mayes MD: 61566 [address], [place] [address], Ph. [phone] Attender: Enio Mayes MD [place] - [facility] 12/15/2020 12:00:00 AM EST NORA ([facility]) Enio Mayes MD: [address]00 [address], [place] [address], Ph. [phone] Attender: Enio Mayes MD [place] - [facility] 12/15/2020 12:00:00 AM EST NORA ([facility]) Enio Mayes MD: [address]59 [address], [place] [address], Ph. [phone] Attender: Enio Mayes MD [place] - [facility] 12/15/2020 12:00:00 AM EST NORA ([facility]) Enio Mayes MD: [address]84 [address], [place] [address], Ph. [phone] Attender: Enio Mayes MD [place] - [facility] 12/15/2020 12:00:00 AM EST NORA ([facility]) Julia Claros, BASS VIOL REPAIRER: [address], [address], [place] [address], Ph. Attender: Julia Claros [facility] - [facility] 11/24/2020 12:00:00 AM EST ATHE NA ([facility]) Julia Claros, BASS VIOL REPAIRER: [address]39 [address], [address], [place] [address], Ph. Attender: Julia Claros [facility] - [facility] 11/24/2020 12:00:00 AM EST ATHE NA ([facility]) Julia Claros, BASS VIOL REPAIRER: [address], [place] [address], Ph. Attender: Julia Claros [facility] - [facility] 11/24/2020 12:00:00 AM EST ATHE NA ([facility]) Julia Claros, BASS VIOL REPAIRER: [address]64 [address], [address], [place] [address], Ph. Attender: Julia Claros [facility] - [facility] 11/24/2020 12:00:00 AM EST ATHE NA ([facility]) Julia Claros, BASS VIOL REPAIRER: [address], [address], [place] [address], Ph. Attender: Julia Claros [facility] - [facility] 11/24/2020 12:00:00 AM EST ATHE NA ([facility]) Julia Claros, BASS VIOL REPAIRER: [address], [place] [address], Ph. Attender: Julia Claros [facility] - [facility] 11/24/2020 12:00:00 AM EST ATHE NA ([facility]) Julia Claros, BASS VIOL REPAIRER: [address], [place] [address], Ph. Attender: Julia Claros [facility] - [facility] 11/24/2020 12:00:00 AM EST ATHE NA ([facility]) Julia Claros, BASS VIOL REPAIRER: [address], [place] [address], Ph. Attender: Julia Claros [facility] - [facility] 11/24/2020 12:00:00 AM EST ATHE NA ([facility]) Julia Claros, BASS VIOL REPAIRER: [address], [place] [address], Ph. Attender: Julia Claros [facility] - [facility] 11/24/2020 12:00:00 AM EST ATHE NA ([facility]) Julia Claros, BASS VIOL REPAIRER: [address], [place] [address], Ph. Attender: Julia Claros [facility] - [facility] 11/24/2020 12:00:00 AM EST ATHE NA ([facility]) Julia Claros, BASS VIOL REPAIRER: [address], [place] [address], Ph. Attender: Julia Claros [facility] - [facility] 11/24/2020 12:00:00 AM EST ATHE NA ([facility]) Julia Claros, BASS VIOL REPAIRER: [address], [place] [address], Ph. Attender: Julia Claros [facility] - [facility] 11/24/2020 12:00:00 AM EST ATHE NA ([facility]) Julia Claros, BASS VIOL REPAIRER: [address], [place] [address], Ph. Attender: Julia Claros [facility] - [facility] 11/24/2020 12:00:00 AM EST ATHE NA ([facility]) Outpatient Attender: Orly Teresa MD Physical Therapy 11/13 09:00:00 AM EST MEDENT ([facility] ) Unknown [address] [facility] [address] 11/13/2020 12:00:00 AM EST eC1 ([facility]) Outpatient Attender: Lorri Chavez: Lorri HurtConsultant: oLrri ORANTES 10/14/2020 01:22:18 PM EST [facility] Julia Claros, BASS VIOL REPAIRER: [address], [place] [address], Ph. Attender: Julia Clarso [facility] - [facility] 10/06/2020 12:00:00 AM EST ATHE NA ([facility]) Julia Claros, BASS VIOL REPAIRER: [address], [place] [address], Ph. Attender: Julia Claros [facility] - [facility] 10/06/2020 12:00:00 AM EST ATHE NA ([facility]) Julia Claros, BASS VIOL REPAIRER: [address], [place] [address], Ph. Attender: Julia Claros [facility] - [facility] 10/06/2020 12:00:00 AM EST ATHE NA ([facility]) Julia Claros, BASS VIOL REPAIRER: [address], [place] [address], Ph. Attender: Julia Claros [facility] - [facility] 10/06/2020 12:00:00 AM EST ATHE NA ([facility]) Julia Claros, BASS VIOL REPAIRER: [address], [place] [address], Ph. Attender: Julia Claros [facility] 10/06/2020 12:00:00 AM EST ATHE NA ([facility]) Julia Claros, BASS VIOL REPAIRER: [address], [place] [address], Ph. Attender: Julia Claros [facility] 10/06/2020 12:00:00 AM EST ATHE NA ([facility]) Julia Claros, BASS VIOL REPAIRER: [address], [place] [address], Ph. Attender: Julia Claros [facility] 10/06/2020 12:00:00 AM EST ATHE NA ([facility]) Julia Claros, BASS VIOL REPAIRER: [address], [place] [address], Ph. Attender: Julia Claros [facility] - [facility] 10/06/2020 12:00:00 AM EST ATHE NA ([facility]) Julia Claros, BASS VIOL REPAIRER: [address], [address], [place] [address], Ph. Attender: Julia Claros [facility] - [facility] 10/06/2020 12:00:00 AM EST ATHE NA ([facility]) Julia Claros, BASS VIOL REPAIRER: [address], [place] [address], Ph. Attender: Julia Claros [facility] - [facility] 10/06/2020 12:00:00 AM EST ATHE NA ([facility]) Julia Claros, BASS VIOL REPAIRER: [address], [place] [address], Ph. Attender: Julia Claros [facility] - [facility] 10/06/2020 12:00:00 AM EST ATHE NA ([facility]) Julia Claros, BASS VIOL REPAIRER: [address], [place] [address], Ph. Attender: Julia Claros [facility] - [facility] 10/06/2020 12:00:00 AM EST ATHE NA ([facility]) Julia Claros, BASS VIOL REPAIRER: [address], [place] [address], Ph. Attender: Julia Claros [facility] - [facility] 10/06/2020 12:00:00 AM EST ATHE NA ([facility]) Julia Claros, BASS VIOL REPAIRER: [address], [place] [address], Ph. Attender: Julia Claros [facility] - [facility] 10/06/2020 12:00:00 AM EST ATHE NA ([facility]) Outpatient [address] [facility] [place] [address] 09/12/2020 12:00:00 AM EDT eCW1 ([facility]) Outpatient Referrer: Lorri HANPAT 0 10:04:48 AM EDT - 09/10/2020 10:04:53 AM EDT [facility] Outpatient Attender: Lorri Gayferrer: Lorri CANTU 09/02/2020 12:00:00 AM EDT - 09/02/2020 10:32:15 AM EDT [facility] Inpatient Attender: Lorri Thomasdmitter: Lorri HurtReferrer: SEDRICK ESPAÑA [id number] 08/25/2020 12:00:44 PM EDT - 09/16/2020 01:09:00 PM EDT [facility] Patient discharged. Immunizations Vaccine Date Status Description Data Source(s) COVID-19 VACCINE Moderna 09/23/2021 12:00:00 AM EDT completed [facility] Vaccine Series Complete: NOThis Data was Submitted to [facility] Via [employer]. Medications Medication Brand Name Start Date Product Form Dose Route Admi nistrative Instructions Pharmacy Instructions Status Indications Reaction Description Data Source(s) 100 mcg/0.5 mL 09/23/2021 12:00:00 AM EDT suspension 0 INJECT DIRECTED (THIRD DOSE) INJECT DIRECTED (THIRD DOSE) SOLD: 09/23/2021 [facility] 137 mcg 09/19/2021 12:00:00 AM EDT [...] BOTH EYES 2 TIMES DAILY SOLD: 09/19/2021 [facility] 200 mg 09/14/2021 12:00:00 AM EDT [...] Fir st dose on Tue09/16/20 at 0900 [facility] Medication administered onsite Lisinopril 20 MG Oral Tablet lisinopril (PRINIVIL,ZEST RIL) tablet 20 mg lisinopril (PRINIVIL,ZESTRIL) tablet 20 mg 09/16/2020 09:00:00 AM EDT 20 mg Oral aborted 20 mg, Oral, D aily, First dose on Tue09/16/20 at 0900
Hold for SBP <105 and call PA
[facility] Medication administered onsite Levothyroxine Sodium 0.137 MG Oral Table t levothyroxine (SYNTHROID, LEVOTHROID) tablet 137 mcg levothyroxine (SYNTHROID, LEVOTHROID) tablet 137 mcg 1 06:00:00 AM EDT 137 ug Oral aborted 137 mcg, Oral, Daily, First dose on Tue09/16/20 at 0600 [facility] Medication administered onsite Simvastatin 40 MG Oral Tablet simvastatin (ZOCOR) tabl et 40 mg simvastatin (ZOCOR) tablet 40 mg 09/15/2020 09:00:00 PM EDT 40 mg Oral aborted 40 mg, Oral, Nightly, First dose on Tue09/15/20 at 2100 [facility] Medication administered onsite Insulin Lispro 100 [...] cover POC glucose at 08:00, 12:00, 17:00.
[facility] Medication administered onsite pregabalin 200 MG Oral Capsule pregabalin (LYRICA) cap mahesh 200 mg pregabalin (LYRICA) capsule 200 mg 09/15/2020 02:00:00 PM EDT 200 mg Oral aborted 200 mg, Oral, 3 times daily, First dose on Tue 0 at 1400, For 7 days [facility] Medication administered onsite dorzolamide-timolol Mal PF (COSOPT) 22.3-6.8 MG/ML oph thalmic solution 1 drop [id number] 09/15/2020 02:00:00 PM EDT 1 [drp] aborted 1 drop, Both Eyes, 2 times daily, First dose on Tue09/15/20 at 1400 [facility] Medication administered onsite Magnesium Chloride 0.31768 MEQ/ML / Pota ssium Chloride 0.0497 MEQ/ML / Sodium Acetate 0.0163 MEQ/ML / Sodium Chloride 0.0899 MEQ/ML / Sodium gluconate 5.02 MG/ML Injectable Solution [Normosol-R] electrolyte-R (NORMOSOL-R/PLASMALYTE-R) solution electrolyte-R (NORMOSOL-R/PLASMALYTE-R) solution 09/15 12:00:00 PM EDT Intravenous aborted at 1 00 mL/hr, Intravenous, Continuous, Starting Tue09/15/20 at 1200
Hep lock with good PO intake.
[facility] Medication administered onsite Acetaminophen 325 MG / Oxycodone Hydroch loride 5 MG Oral Tablet oxyCODONE- acetaminophen (PERCOCET) 5-325 MG 2 tablet oxyCODONE-acetaminophen (PERCOCET) 5- 325 MG 2 tablet 09/15/2020 11:38:00 AM EDT 2 {tbl} Oral a borted 2 tablet, Oral, Every 4 hours PRN, severe pain (7-10), Starting Tue09/15/20 at 1138, For 7 days [facility] Medication administered onsite Acetaminophen 325 MG / Oxycodone Hydroch loride 5 MG Oral Tablet oxyCODONE- acetaminophen (PERCOCET) 5-325 MG 1 tablet oxyCODONE-acetaminophen (PERCOCET) 5- 325 MG 1 tablet 09/15/2020 11:38:00 AM EDT 1 {tbl} Oral a borted 1 tablet, Oral, Every 4 hours PRN, moderate pain (4-6), Starting Tue09/15/20 at 1138, For 7 days [facility] Medication administered onsite ondansetron (ZOFRAN) injection 4 mg [id number] 09/15/2020 11:38:0 0 AM EDT 4 mg Intravenous aborted 4 mg, In travenous, Every 6 hours PRN, nausea, vomiting, Starting Tue09/15/20 at 1138, Post-op [facility] Medication administered onsite Acetaminophen 325 MG Oral Tablet acetaminophen (TYLENO L) 325 MG tablet 650 mg acetaminophen (TYLENOL) 325 MG tablet 650 mg 09/15/2020 11:37:59 AM EDT 650 mg Oral aborted 650 mg, Or al, Every 4 hours PRN, mild pain (1-3), headaches, Starting Tue09/15/20 at 1137, Post-op
"Maximum dose of acetaminophen is 4,000 mg from all sources in 24 hours."
[facility] Medication administered onsite fentaNYL Citrate (PF) (SUBLIMAZE) injection 25 mcg [id number] 09/15/2020 11:11:50 AM EDT 25 ug Intravenous aborted 25 mcg, Intravenous, Every 5 min PRN, moderate pain (4 to 6), Starting Tue09/15/20 at 1111, For 5 doses, PACU (only) [facility] Medication administered onsite Magnesium Chloride 0.50851 MEQ/ML / Pota ssium Chloride 0.0497 MEQ/ML / Sodium Acetate 0.0163 MEQ/ML / Sodium Chloride 0.0899 MEQ/ML / Sodium gluconate 5.02 MG/ML Injectable Solution [Normosol-R] electrolyte-R (NORMOSOL-R/PLASMALYTE-R) solution electrolyte-R (NORMOSOL-R/PLASMALYTE-R) solution 09/15 09:00:00 AM EDT Intravenous aborted at 1 00 mL/hr, Intravenous, Continuous, Starting Tue09/15/20 at 0900, Pre-op [facility] Medication administered onsite 137 mcg 09/10/2020 [...] TABLET BY MOUTH EVERY DAY SOLD: 08/28/2020 [facility] BLOOD SUGAR DIAGNOSTIC 05/13/2020 12:00:00 AM EDT strip 200 USE DIRECTED TWO TIMES A DAY USE DIRECTED TWO TIMES A DAY SOLD: 11/26/2020 [facility] 0.4 mg 12/28/2019 12:00:00 AM EST capsule 30 TAKE ONE CAPSULE BY MOUTH EVERY DAY TAKE ONE CAPSULE BY MOUTH EVERY DAY SOLD: 09/09/2020 [facility] Fluad Quad (65yr up)(PF) 60 mcg (15 mcg x 4)/0.5mL IM syringe INJECT DIRECTED [id number] completed 0.5 ML influenza A virus A/Otto (H3N2) antigen 0.03 MG/ML / influenza A virus A/ (H1N1) antigen 0.03 MG/ML / influenza B virus B/[facility] antigen 0.03 MG/ML / influenza B virus B/Nicci antigen 0.03 MG/ML Prefilled Syringe [Fluad Quadrivalent ] NORA ([facility]) methylprednisolone 4 mg tablets in a dose pack [id number] completed methylprednisolone 4 mg tablets in a dose pack NORA ([facility]) 24 HR Metformin hydrochloride 500 MG Ext ended Release Oral Tablet metformin ER 500 mg tablet,extended release 24 hr 1 tab twice daily metformin ER 500 mg tablet,extended release 24 hr 1 tab twice daily completed 24 HR metformin hydrochloride 500 MG Extended Release Oral Tablet NORA ([facility]) Fluad Quad (65yr up)(PF) 60 mcg (15 mcg x 4)/0.5mL IM syringe INJECT DIRECTED [id number] completed 0.5 ML influenza A virus A/[facility] (H3N2) antigen 0.03 MG/ML / influenza A virus A/ (H1N1) antigen 0.03 MG/ML / influenza B virus B/[facility] antigen 0.03 MG/ML / influenza B virus B/ antigen 0.03 MG/ML Prefilled Syringe [Fluad Quadrivalent ] NORA ([facility]) 24 HR Metformin hydrochloride 500 MG Ext ended Release Oral Tablet metformin ER 500 mg tablet,extended release 24 hr 1 tab twice daily metformin ER 500 mg tablet,extended release 24 hr 1 tab twice daily completed 24 HR metformin hydrochloride 500 MG Extended Release Oral Tablet NORA ([facility]) Fluad Quad (65yr up)(PF) 60 mcg (15 mcg x 4)/0.5mL IM syringe INJECT DIRECTED [id number] completed 0.5 ML influenza A virus A/Otto (H3N2) antigen 0.03 MG/ML / influenza A virus A/ (H1N1) antigen 0.03 MG/ML / influenza B virus B/[facility] antigen 0.03 MG/ML / influenza B virus B/ antigen 0.03 MG/ML Prefilled Syringe [Fluad Quadrivalent ] NORA ([facility]) Fluad Quad (65yr up)(PF) 60 mcg (15 mcg x 4)/0.5mL IM syringe INJECT DIRECTED [id number] completed 0.5 ML influenza A virus A/[facility] (H3N2) antigen 0.03 MG/ML / influenza A virus A/ (H1N1) antigen 0.03 MG/ML / influenza B virus B/[facility] antigen 0.03 MG/ML / influenza B virus B/ antigen 0.03 MG/ML Prefilled Syringe [Fluad Quadrivalent ] NORA ([facility]) Fluad Quad (65yr up)(PF) 60 mcg (15 mcg x 4)/0.5mL IM syringe INJECT DIRECTED [id number] completed 0.5 ML influenza A virus A/[facility] (H3N2) antigen 0.03 MG/ML / influenza A virus A/ (H1N1) antigen 0.03 MG/ML / influenza B virus B/[facility] antigen 0.03 MG/ML / influenza B virus B/[place] antigen 0.03 MG/ML Prefilled Syringe [Fluad Quadrivalent ] NORA ([facility]) 24 HR Metformin hydrochloride 500 MG Ext ended Release Oral Tablet metformin ER 500 mg tablet,extended release 24 hr 1 tab twice daily metformin ER 500 mg tablet,extended release 24 hr 1 tab twice daily completed 24 HR metformin hydrochloride 500 MG Extended Release Oral Tablet NORA ([facility]) 24 HR Metformin hydrochloride 500 MG Ext ended Release Oral Tablet metformin ER 500 mg tablet,extended release 24 hr 1 tab twice daily metformin ER 500 mg tablet,extended release 24 hr 1 tab twice daily completed 24 HR metformin hydrochloride 500 MG Extended Release Oral Tablet NORA ([facility]) 24 HR Metformin hydrochloride 500 MG Ext ended Release Oral Tablet metformin ER 500 mg tablet,extended release 24 hr 1 tab twice daily metformin ER 500 mg tablet,extended release 24 hr 1 tab twice daily completed 24 HR metformin hydrochloride 500 MG Extended Release Oral Tablet NORA ([facility]) 24 HR Metformin hydrochloride 500 MG Ext ended Release Oral Tablet metformin ER 500 mg tablet,extended release 24 hr 1 tab twice daily metformin ER 500 mg tablet,extended release 24 hr 1 tab twice daily completed 24 HR metformin hydrochloride 500 MG Extended Release Oral Tablet NORA ([facility]) pregabalin 150 MG Oral Capsule pregabali n 150 mg capsule TAKE ONE CAPSULE BY MOUTH THREE TIMES A DAY MAXIMUM DAILY DOSE 3 CAPSULES pregabalin 150 mg capsule TAKE ONE CAPSULE BY MOUTH THREE TIMES A DAY MAXIMUM DAILY DOSE 3 CAPSULES completed pregabalin 15 0 MG Oral Capsule NORA ([facility]) Fluad Quad (65yr up)(PF) 60 mcg (15 mcg x 4)/0.5mL IM syringe INJECT DIRECTED [id number] completed 0.5 ML influenza A virus A/ (H3N2) antigen 0.03 MG/ML / influenza A virus A/ (H1N1) antigen 0.03 MG/ML / influenza B virus B/[facility] antigen 0.03 MG/ML / influenza B virus B/ antigen 0.03 MG/ML Prefilled Syringe [Fluad Quadrivalent ] NORA ([facility]) 24 HR Metformin hydrochloride 500 MG Ext ended Release Oral Tablet metformin ER 500 mg tablet,extended release 24 hr 1 tab twice daily metformin ER 500 mg tablet,extended release 24 hr 1 tab twice daily completed 24 HR metformin hydrochloride 500 MG Extended Release Oral Tablet NORA ([facility]) methylprednisolone 4 mg tablets in a dose pack [id number] completed methylprednisolone 4 mg tablets in a dose pack NORA ([facility]) 24 HR Metformin hydrochloride 500 MG Ext ended Release Oral Tablet metformin ER 500 mg tablet,extended release 24 hr 1 tab twice daily metformin ER 500 mg tablet,extended release 24 hr 1 tab twice daily completed 24 HR metformin hydrochloride 500 MG Extended Release Oral Tablet NORA ([facility]) Fluad Quad (65yr up)(PF) 60 mcg (15 mcg x 4)/0.5mL IM syringe INJECT DIRECTED [id number] completed 0.5 ML influenza A virus A/ (H3N2) antigen 0.03 MG/ML / influenza A virus A/ (H1N1) antigen 0.03 MG/ML / influenza B virus B/[facility] antigen 0.03 MG/ML / influenza B virus B/ antigen 0.03 MG/ML Prefilled Syringe [Fluad Quadrivalent ] NORA ([facility]) Amoxicillin 875 MG / Clavulanate 125 MG Oral Tablet amoxicillin 875 mg-potassium clavulanate 125 mg tablet amoxicillin 875 mg-potassium clavulanate 125 mg tablet completed amoxicillin 875 MG / clavulanate 125 MG Oral Tablet NORA ([facility]) methylprednisolone 4 mg tablets in a dose pack [id number] completed methylprednisolone 4 mg tablets in a dose pack NORA ([facility]) 24 HR Metformin hydrochloride 500 MG Ext ended Release Oral Tablet metformin ER 500 mg tablet,extended release 24 hr 1 tab twice daily metformin ER 500 mg tablet,extended release 24 hr 1 tab twice daily completed 24 HR metformin hydrochloride 500 MG Extended Release Oral Tablet NORA ([facility]) Fluad Quad (65yr up)(PF) 60 mcg (15 mcg x 4)/0.5mL IM syringe INJECT DIRECTED [id number] completed 0.5 ML influenza A virus A/[facility] (H3N2) antigen 0.03 MG/ML / influenza A virus A/ (H1N1) antigen 0.03 MG/ML / influenza B virus B/[facility] antigen 0.03 MG/ML / influenza B virus B/ antigen 0.03 MG/ML Prefilled Syringe [Fluad Quadrivalent ] NORA ([facility]) Fluad Quad (65yr up)(PF) 60 mcg (15 mcg x 4)/0.5mL IM syringe INJECT DIRECTED [id number] completed 0.5 ML influenza A virus A/[facility] (H3N2) antigen 0.03 MG/ML / influenza A virus A/ (H1N1) antigen 0.03 MG/ML / influenza B virus B/[facility] antigen 0.03 MG/ML / influenza B virus B/ antigen 0.03 MG/ML Prefilled Syringe [Fluad Quadrivalent ] NORA ([facility]) 24 HR Metformin hydrochloride 500 MG Ext ended Release Oral Tablet metformin ER 500 mg tablet,extended release 24 hr 1 tab twice daily metformin ER 500 mg tablet,extended release 24 hr 1 tab twice daily completed 24 HR metformin hydrochloride 500 MG Extended Release Oral Tablet NORA ([facility]) Fluad Quad (65yr up)(PF) 60 mcg (15 mcg x 4)/0.5mL IM syringe INJECT DIRECTED [id number] completed 0.5 ML influenza A virus A/[facility] (H3N2) antigen 0.03 MG/ML / influenza A virus A/ (H1N1) antigen 0.03 MG/ML / influenza B virus B/[facility] antigen 0.03 MG/ML / influenza B virus B/ antigen 0.03 MG/ML Prefilled Syringe [Fluad Quadrivalent ] NORA ([facility]) 24 HR Metformin hydrochloride 500 MG Ext ended Release Oral Tablet metformin ER 500 mg tablet,extended release 24 hr 1 tab twice daily metformin ER 500 mg tablet,extended release 24 hr 1 tab twice daily completed 24 HR metformin hydrochloride 500 MG Extended Release Oral Tablet NORA ([facility]) 24 HR Metformin hydrochloride 500 MG Ext ended Release Oral Tablet metFORMIN (GLUCOPHATE-XR) 500 MG 24 hr tablet metFORMIN (GLUCOPHATE-XR) 500 MG 24 hr tablet 500 mg Oral aborted Take 500 mg by m outh 2 (two) times a day [facility] Fluad Quad (65yr up)(PF) 60 mcg (15 mcg x 4)/0.5mL IM syringe INJECT DIRECTED [id number] completed 0.5 ML influenza A virus A/Otto (H3N2) antigen 0.03 MG/ML / influenza A virus A/ (H1N1) antigen 0.03 MG/ML / influenza B virus B/[facility] antigen 0.03 MG/ML / influenza B virus B/ antigen 0.03 MG/ML Prefilled Syringe [Fluad Quadrivalent ] NORA ([facility]) Fluad Quad (65yr up)(PF) 60 mcg (15 mcg x 4)/0.5mL IM syringe INJECT DIRECTED [id number] completed 0.5 ML influenza A virus A/[place]to (H3N2) antigen 0.03 MG/ML / influenza A virus A/ (H1N1) antigen 0.03 MG/ML / influenza B virus B/[facility] antigen 0.03 MG/ML / influenza B virus B/ antigen 0.03 MG/ML Prefilled Syringe [Fluad Quadrivalent ] NORA ([facility]) 24 HR Metformin hydrochloride 500 MG Ext ended Release Oral Tablet metformin ER 500 mg tablet,extended release 24 hr 1 tab twice daily metformin ER 500 mg tablet,extended release 24 hr 1 tab twice daily completed 24 HR metformin hydrochloride 500 MG Extended Release Oral Tablet NORA ([facility]) 24 HR Metformin hydrochloride 500 MG Ext ended Release Oral Tablet metformin ER 500 mg tablet,extended release 24 hr 1 tab twice daily metformin ER 500 mg tablet,extended release 24 hr 1 tab twice daily completed 24 HR metformin hydrochloride 500 MG Extended Release Oral Tablet NORA ([facility]) Fluad Quad [id number](65yr up)(PF) 60 mcg (15 mcg x 4)/0.5mL IM syringe INJECT DIRECTED [id number] completed 0.5 ML influenza A virus A/[facility] (H3N2) antigen 0.03 MG/ML / influenza A virus A/[facility] (H1N1) antigen 0.03 MG/ML / influenza B virus B/[facility] antigen 0.03 MG/ML / influenza B virus B/[place] antigen 0.03 MG/ML Prefilled Syringe [Fluad Quadrivalent ] NORA ([facility]) Insurance Providers Payer name Policy type / Coverage type Policy ID Covered democrat ID Covered democrat's relationship to porter Policy Porter Plan Information MEDICARE A [id number] Self [id number] MEDICARE [id number] SP [id number] U22 MEDICARE [id number] [place] [id number] U22 TODAYS OPTIONS [id number] SP [id number] MEDICARE [id number] SP [id number] A MEDICARE [id number] xxxxxxxxxxx [id number] TODAYS OPTION MEDICARE [id number] [place] [id number] TODAYS OPTION MEDICARE [id number] [place] [id number] [facility] [id number] Self [id number] [facility] [id number] xxxxxxxxxxx [id number] [facility] [id number] [place] [id number] INSURANCE COVID-19 COVID [place] C OVID Medicare [place] Primary [id number] [id number] [facility] [id number] Self [id number] 11 Medicare [place] Medicare Primary [id number] Self [id number] MEDICARE C [id number] S [id number] A [employer] Medigap Part B [id number] 11 [id number] Self [id number] 11 Medicare [place] Medicare Primary [id number] Self [id number] [employer] Medigap Part B [id number] Self Medicare [place] Medicare Primary [id number] Self MEDICARE [id number] SP [id number] A [employer] HE[employer] CARE OPTIONS [id number] SP [id number] MEDICARE [id number] SP [id number] U22 INSURANCE COVID-19 COVID [place] C OVID INSURANCE COVID-19 [id number] [id number] MEDICARE C [id number] S [id number] U22 AARP O [id number] S [id number] 211 [employer] OPTIONS [id number] SP [id number] [employer] Options Medigap Part B [id number] Self [id number] Medicare [place] Primary [id number] Self [id number] [employer] Options Medigap Part B [id number] Self [id number] Medicare [place] Medicare Primary [id number] Self [id number] [employer] Options [facility] Part B [id number] Self [id number] Problems, Conditions, and Diagnoses Code Display Name Description Problem Type Effective Dates Data Source(s) C73 Malignant neoplasm of thyroid gland Malignant ne oplasm of thyroid gland Diagnosis 10/14/2020 01:22:18 PM EST [facility] U07.1 COVID-19 COVID-19 Diagnosis 09/10/2020 10:04:48 AM ED T [facility] Surgeries/Procedures Procedure Description Date Indications Data Source(s) Lap Vent Umb Spig Epig W Mesh, Reducible 01/30/2021 12 :00:00 AM EST [facility] ([facility], ) GLUC BLD GLUC MNTR DEV CLEARED FDA SPEC HOME USE <td>P OCT GLUCOSE</td><td>Routine</td><td>09/16/2020 7:51 AM EDT</td><td></td><td> </td> 09/16/2020 11:51:00 AM EDT [facility] CALCIUM TOTAL <td>CALCIUM</td><td>Routine< /td><td>09/16/2020 4:01 AM EDT</td><td></td><td> </td> 09/16/2020 08:01:00 AM EDT [facility] GLUC BLD GLUC MNTR DEV CLEARED FDA SPEC HOME USE <td>P OCT GLUCOSE</td><td>Routine</td><td>09/15/2020 6:15 PM EDT</td><td></td><td> </td> 09/15/2020 10:15:00 PM EDT [facility] GLUC BLD GLUC MNTR DEV CLEARED FDA SPEC HOME USE <td>P OCT GLUCOSE</td><td>Routine</td><td>09/15/2020 2:44 PM EDT</td><td></td><td> </td> 09/15/2020 06:44:00 PM EDT [facility] GLUC BLD GLUC MNTR DEV CLEARED FDA SPEC HOME USE <td>P OCT GLUCOSE</td><td>Routine</td><td>09/15/2020 11:48 AM EDT</td><td></td><td> </td> 09/15/2020 03:48:00 PM EDT [facility] THYROIDECTOMY, SUBTOTAL (LOBECTOMY) <td>THYROIDECTOMY, SUBTOTAL (LOBECTOMY)</td><td></td><td>09/15/2020 9:50 AM EDT</td><td> Thyroid cancer</td><td></td> 09/15/2020 01:50:00 PM EDT - 09/15/2020 04:12:00 PM EDT Thyroid cancer [facility] Thyroid cancer GLUC BLD GLUC MNTR DEV CLEARED FDA SPEC HOME USE <td>P OCT GLUCOSE</td><td>Routine</td><td>09/15/2020 9:04 AM EDT</td><td></td><td> </td> 09/15/2020 01:04:00 PM EDT [facility] LEVEL IV SURG PATHOLOGY GROSS&MICROSCOPIC EXAM <td>[facility] HISTOLOGY</td><td>Routine</td><td>09/15/2020 8:02 AM EDT</td><td></td><td> </td> 09/15/2020 12:02:00 PM EDT [facility] uro PVR (Post Voiding Residual) Bladder Scan 0 12:00:00 AM EDT eCW1 (Count Includes [facility]) Results ID Date Data Source [id number] 05/04/2021 12:00:00 AM EDT [facility] ([facility] [place]) Name Value Range Interpretation Code Description Data Serena rce(s) Supporting Document(s) SARS-CoV-2 (COVID-19) RNA [Presence] in Respiratory specimen by JUAN PABLO with probe detection negative negative Sars-cov-2 [facility] ([facility]) ID Date Data Source [id number] 05/04/2021 12:00:00 AM EDT [facility] ([facility]) Name Value Range Interpretation Code Description Data Serena rce(s) Supporting Document(s) ID Date Data Source [id number] 05/04/2021 12:00:00 AM EDT [facility] ([facility]) Name Value Range Interpretation Code Description Data Serena rce(s) Supporting Document(s) SARS-CoV-2 (COVID-19) RNA [Presence] in Respiratory specimen by JUAN PABLO with probe detection negative negative Sars-cov-2 [facility] ([facility]) ID Date Data Source [id number] 05/04/2021 12:00:00 AM EDT [facility] ([facility]) Name Value Range Interpretation Code Description Data Serena rce(s) Supporting Document(s) ID Date Data Source [id number] 05/04/2021 12:00:00 AM EDT [facility] Name Value Range Interpretation Code Description Data Serena rce(s) Supporting Document(s) [facility]IVE [facility] This lab was ordered by [facility] and reported by [facility] ID Date Data Source [id number] 03/16/2021 12:00:00 AM EDT [facility] ([facility]) Name Value Range Interpretation Code Description Data Serena rce(s) Supporting Document(s) ID Date Data Source [id number] 03/16/2021 12:00:00 AM EDT [facility] ([facility]) Name Value Range Interpretation Code Description Data Serena rce(s) Supporting Document(s) SARS-CoV-2 (COVID-19) RNA [Presence] in Respiratory specimen by JUAN PABLO with probe detection negative negative Sars-cov-2 [facility] ([facility]) ID Date Data Source [id number] 03/16/2021 12:00:00 AM EDT [facility] ([facility]) Name Value Range Interpretation Code Description Data Serena rce(s) Supporting Document(s) ID Date Data Source [id number] 03/16/2021 12:00:00 AM EDT [facility] ([facility]) Name Value Range Interpretation Code Description Data Serena rce(s) Supporting Document(s) SARS-CoV-2 (COVID-19) RNA [Presence] in Respiratory specimen by JUAN PABLO with probe detection negative negative Sars-cov-2 [facility] ([facility]) ID Date Data Source [id number] 03/16/2021 12:00:00 AM EDT [facility] ([facility]) Name Value Range Interpretation Code Description Data Serena rce(s) Supporting Document(s) ID Date Data Source [id number] 03/16/2021 [facility] Name Value Range Interpretation Code Description Data Serena rce(s) Supporting Document(s) SARS-CoV-2 (COVID-19) RNA [Presence] in Respiratory specimen by JUAN PABLO with probe detection negative negative Sars-cov-2 [facility] ([facility]) ID Date Data Source [id number] 03/16/2021 12:00:00 AM EDT [facility] ([facility]) Name Value Range Interpretation Code Description Data Serena rce(s) Supporting Document(s) ID Date Data Source [id number] 03/16/2021 12:00:00 AM EDT [facility] Name Value Range Interpretation Code Description Data Serena rce(s) Supporting Document(s) SARS-CoV-2 NEGATIVE [facility] This lab was ordered by [facility] and reported by [facility]. ID Date Data Source [id number] 03/16/2021 12:00:00 AM EDT [facility] ([facility]) Name Value Range Interpretation Code Description Data Serena rce(s) Supporting Document(s) SARS-CoV-2 (COVID-19) RNA [Presence] in Respiratory specimen by JUAN PABLO with probe detection negative negative Sars-cov-2 [facility] ([facility]) ID Date Data Source [id number] 03/16/2021 12:00:00 AM EDT [facility] ([facility]) Name Value Range Interpretation Code Description Data Serena rce(s) Supporting Document(s) ID Date Data Source [id number] 03/16/2021 12:00:00 AM EDT [facility] ([facility]) Name Value Range Interpretation Code Description Data Serena rce(s) Supporting Document(s) SARS-CoV-2 (COVID-19) RNA [Presence] in Respiratory specimen by JUAN PABLO with probe detection negative negative Sars-cov-2 [facility] ([facility]) ID Date Data Source [id number] 01/30/2021 06:56:00 AM EST [facility] ([facility] ) Name Value Range Interpretation Code Description Data Serena rce(s) Supporting Document(s) Glucose [Mass/volume] in Capillary blood by Glucometer 147 mg/dL 83-110 Above high normal [facility] ([facility], ) ID Date Data Source [id number] 01/25/2021 10:00:00 AM EST [facility] Name Value Range Interpretation Code Description Data Serena rce(s) Supporting Document(s) SARS coronavirus 2 RNA Not Detected [facility] This lab was ordered by [facility] and reported by [facility]. ID Date Data Source [id number] 12/26/2020 12:00:00 AM EST [facility] ([facility]) Name Value Range Interpretation Code Description Data Serena rce(s) Supporting Document(s) SARS-CoV-2 (COVID-19) RNA [Presence] in Respiratory specimen by JUAN PABLO with probe detection negative negative Sars-cov-2 [facility] ([facility]) ID Date Data Source [id number] 12/26/2020 12:00:00 AM EST [facility] ([facility]) Name Value Range Interpretation Code Description Data Serena rce(s) Supporting Document(s) ID Date Data Source [id number] 12/26/2020 12:00:00 AM EST [facility] ([facility]) Name Value Range Interpretation Code Description Data Serena rce(s) Supporting Document(s) SARS-CoV-2 (COVID-19) RNA [Presence] in Respiratory specimen by JUAN PABLO with probe detection negative negative Sars-cov-2 [facility] ([facility]) ID Date Data Source [id number] 12/26/2020 12:00:00 AM EST [facility] ([facility]) Name Value Range Interpretation Code Description Data Serena rce(s) Supporting Document(s) ID Date Data Source [id number] 12/26/2020 12:00:00 AM EST [facility] ([facility]) Name Value Range Interpretation Code Description Data Serena rce(s) Supporting Document(s) SARS-CoV-2 (COVID-19) RNA [Presence] in Respiratory specimen by JUAN PABLO with probe detection negative negative Sars-cov-2 [facility] ([facility]) ID Date Data Source [id number] 12/26/2020 12:00:00 AM EST [facility] ([facility]) Name Value Range Interpretation Code Description Data Serena rce(s) Supporting Document(s) ID Date Data Source [id number] 12/26/2020 12:00:00 AM EST [facility] ([facility]) Name Value Range Interpretation Code Description Data Serena rce(s) Supporting Document(s) SARS-CoV-2 (COVID-19) RNA [Presence] in Respiratory specimen by JUAN PABLO with probe detection negative negative Sars-cov-2 [facility] ([facility]) ID Date Data Source [id number] 12/26/2020 12:00:00 AM EST [facility] ([facility]) Name Value Range Interpretation Code Description Data Serena rce(s) Supporting Document(s) ID Date Data Source [id number] 12/26/2020 12:00:00 AM EST [facility] ([facility]) Name Value Range Interpretation Code Description Data Serena rce(s) Supporting Document(s) SARS-CoV-2 (COVID-19) RNA [Presence] in Respiratory specimen by JUAN PABLO with probe detection negative negative Sars-cov-2 [facility] ([facility]) ID Date Data Source [id number] 12/26/2020 12:00:00 AM EST [facility] ([facility]) Name Value Range Interpretation Code Description Data Serena rce(s) Supporting Document(s) ID Date Data Source [id number] 12/26/2020 12:00:00 AM EST [facility] ([facility]) Name Value Range Interpretation Code Description Data Serena rce(s) Supporting Document(s) SARS-CoV-2 (COVID-19) RNA [Presence] in Respiratory specimen by JUAN PABLO with probe detection negative negative Sars-cov-2 [facility] ([facility]) ID Date Data Source [id number] 12/26/2020 12:00:00 AM EST [facility] ([facility]) Name Value Range Interpretation Code Description Data Serena rce(s) Supporting Document(s) ID Date Data Source [id number] 12/26/2020 12:00:00 AM EST [facility] ([facility]) Name Value Range Interpretation Code Description Data Serena rce(s) Supporting Document(s) SARS-CoV-2 (COVID-19) RNA [Presence] in Respiratory specimen by JUAN PABLO with probe detection negative negative Sars-cov-2 [facility] ([facility]) ID Date Data Source [id number] 12/26/2020 12:00:00 AM EST [facility] ([facility]) Name Value Range Interpretation Code Description Data Serena rce(s) Supporting Document(s) ID Date Data Source [id number] 12/26/2020 12:00:00 AM EST [facility] ([facility]) Name Value Range Interpretation Code Description Data Serena rce(s) Supporting Document(s) SARS-CoV-2 (COVID-19) RNA [Presence] in Respiratory specimen by JUAN PABLO with probe detection negative negative Sars-cov-2 [facility] ([facility]) ID Date Data Source [id number] 12/26/2020 12:00:00 AM EST [facility] ([facility]) Name Value Range Interpretation Code Description Data Serena rce(s) Supporting Document(s) ID Date Data Source [id number] 12/26/2020 12:00:00 AM EST [facility] Name Value Range Interpretation Code Description Data Serena rce(s) Supporting Document(s) SARS-CoV-2 NEGATIVE [facility] This lab was ordered by [facility] and reported by [facility]. ID Date Data Source [id number] 12/26/2020 12:00:00 AM EST [facility] ([facility]) Name Value Range Interpretation Code Description Data Serena rce(s) Supporting Document(s) SARS-CoV-2 (COVID-19) RNA [Presence] in Respiratory specimen by JUAN PABLO with probe detection negative negative Sars-cov-2 [facility] ([facility] [place]) ID Date Data Source [id number] 12/26/2020 12:00:00 AM EST [facility] ([facility]) Name Value Range Interpretation Code Description Data Serena rce(s) Supporting Document(s) ID Date Data Source [id number] 12/15/2020 12:00:00 AM EST [facility] ([facility]) Name Value Range Interpretation Code Description Data Serena rce(s) Supporting Document(s) SARS-CoV-2 (COVID-19) RNA [Presence] in Respiratory specimen by JUAN PABLO with probe detection negative negative Sars-cov-2 [facility] ([facility]) ID Date Data Source [id number] 12/15/2020 12:00:00 AM EST [facility] ([facility]) Name Value Range Interpretation Code Description Data Serena rce(s) Supporting Document(s) ID Date Data Source [id number] 12/15/2020 12:00:00 AM EST [facility] ([facility]) Name Value Range Interpretation Code Description Data Serena rce(s) Supporting Document(s) SARS-CoV-2 (COVID-19) RNA [Presence] in Respiratory specimen by JUAN PABLO with probe detection negative negative Sars-cov-2 [facility] ([facility]) ID Date Data Source [id number] 12/15/2020 12:00:00 AM EST [facility] ([facility]) Name Value Range Interpretation Code Description Data Serena rce(s) Supporting Document(s) ID Date Data Source [id number] 12/15/2020 12:00:00 AM EST [facility] ([facility]) Name Value Range Interpretation Code Description Data Serena rce(s) Supporting Document(s) SARS-CoV-2 (COVID-19) RNA [Presence] in Respiratory specimen by JUAN PABLO with probe detection negative negative Sars-cov-2 [facility] ([facility]) ID Date Data Source [id number] 12/15/2020 12:00:00 AM EST [facility] ([facility]) Name Value Range Interpretation Code Description Data Serena rce(s) Supporting Document(s) ID Date Data Source [id number] 12/15/2020 12:00:00 AM EST [facility] ([facility]) Name Value Range Interpretation Code Description Data Serena rce(s) Supporting Document(s) SARS-CoV-2 (COVID-19) RNA [Presence] in Respiratory specimen by JUAN PABLO with probe detection negative negative Sars-cov-2 [facility] ([facility]) ID Date Data Source [id number] 12/15/2020 12:00:00 AM EST [facility] ([facility]) Name Value Range Interpretation Code Description Data Sernea rce(s) Supporting Document(s) ID Date Data Source [id number] 12/15/2020 12:00:00 AM EST [facility] ([facility]) Name Value Range Interpretation Code Description Data Serena rce(s) Supporting Document(s) SARS-CoV-2 (COVID-19) RNA [Presence] in Respiratory specimen by JUAN PABLO with probe detection negative negative Sars-cov-2 [facility] ([facility]) ID Date Data Source [id number] 12/15/2020 12:00:00 AM EST [facility] ([facility]) Name Value Range Interpretation Code Description Data Serena rce(s) Supporting Document(s) ID Date Data Source [id number] 12/15/2020 12:00:00 AM EST [facility] ([facility]) Name Value Range Interpretation Code Description Data Serena rce(s) Supporting Document(s) SARS-CoV-2 (COVID-19) RNA [Presence] in Respiratory specimen by JUAN PABLO with probe detection negative negative Sars-cov-2 [facility] ([facility]) ID Date Data Source [id number] 12/15/2020 12:00:00 AM EST [facility] ([facility]) Name Value Range Interpretation Code Description Data Serena rce(s) Supporting Document(s) ID Date Data Source [id number] 12/15/2020 12:00:00 AM EST [facility] ([facility]) Name Value Range Interpretation Code Description Data Serena rce(s) Supporting Document(s) SARS-CoV-2 (COVID-19) RNA [Presence] in Respiratory specimen by JUAN PABLO with probe detection negative negative Sars-cov-2 [facility] ([facility]) ID Date Data Source [id number] 12/15/2020 12:00:00 AM EST [facility] ([facility]) Name Value Range Interpretation Code Description Data Serena rce(s) Supporting Document(s) ID Date Data Source [id number] 12/15/2020 12:00:00 AM EST [facility] ([facility]) Name Value Range Interpretation Code Description Data Serena rce(s) Supporting Document(s) SARS-CoV-2 (COVID-19) RNA [Presence] in Respiratory specimen by JUAN PABLO with probe detection negative negative Sars-cov-2 [facility] ([facility]) ID Date Data Source [id number] 12/15/2020 12:00:00 AM EST [facility] ([facility]) Name Value Range Interpretation Code Description Data Serena rce(s) Supporting Document(s) ID Date Data Source [id number] 12/15/2020 12:00:00 AM EST [facility] ([facility]) Name Value Range Interpretation Code Description Data Serena rce(s) Supporting Document(s) SARS-CoV-2 (COVID-19) RNA [Presence] in Respiratory specimen by JUAN PABLO with probe detection negative negative Sars-cov-2 [facility] ([facility]) ID Date Data Source [id number] 12/15/2020 12:00:00 AM EST [facility] ([facility]) Name Value Range Interpretation Code Description Data Serena rce(s) Supporting Document(s) ID Date Data Source [id number] 12/15/2020 12:00:00 AM EST [facility] ([facility]) Name Value Range Interpretation Code Description Data Serena rce(s) Supporting Document(s) SARS-CoV-2 (COVID-19) RNA [Presence] in Respiratory specimen by JUAN PABLO with probe detection negative negative Sars-cov-2 [facility] ([facility]) ID Date Data Source [id number] 12/15/2020 12:00:00 AM EST [facility] ([facility]) Name Value Range Interpretation Code Description Data Serena rce(s) Supporting Document(s) ID Date Data Source [id number] 12/15/2020 12:00:00 AM EST [facility] Name Value Range Interpretation Code Description Data Serena rce(s) Supporting Document(s) SARS-CoV-2 NEGATIVE [facility] This lab was ordered by [facility] and reported by [facility]. ID Date Data Source [id number] 12/15/2020 12:00:00 AM EST [facility] ([facility]) Name Value Range Interpretation Code Description Data Serena rce(s) Supporting Document(s) SARS-CoV-2 (COVID-19) RNA [Presence] in Respiratory specimen by JUAN PABLO with probe detection negative negative Sars-cov-2 [facility] ([facility]) ID Date Data Source [id number] 12/15/2020 12:00:00 AM EST [facility] ([facility]) Name Value Range Interpretation Code Description Data Serena rce(s) Supporting Document(s) ID Date Data Source [id number] 11/13/2020 10:07:00 AM EST [facility] Name Value Range Interpretation Code Description Data [facility](s) Thyroglobulin Quantitative Laboratory test result 1.4-29.2 [facility] . According [...] is 0.1 ng/mL . Thyroglobulin measured by [employer] Immunometric Assay Performed at: - [facility] [id number] [employer] Specialist: Amaya Carrillo MD, Phone: [phone] Thryoglobulin Antibodies (Chris) Laboratory test result 0.0-0.9 [facility] ([facility]) Thyroglobulin Antibody measured by [facility] Marquita Methodology ID Date Data Source [id number] 11/13/2020 10:07:00 AM EST [facility] Name Value Range Interpretation Code Description Data [facility](s) Supporting Document(s) Thyroglobulin [Mass/volume] in Serum or Plasma Laboratory test result [facility] Thyrotropin [Units/volume] in Serum or Plasma by Detec tion limit <= 0.05 mIU/L 0.027 uIU/ML 0.358-3.740 [facility] [facility] ) Thyroxine (T4) free [Mass/volume] in Serum or Plasma 1.37 ng/dL 0.76- 1.46 [facility] Thyroglobulin Ab [Units/volume] in Serum or Plasma Laboratory test re sult [facility] Calcium [Mass/volume] in Serum or Plasma 9.8 mg/dL 8.8-10.2 [facility] ) ID Date Data Source [id number] 10/14/2020 01:51:[address] [facility] INFORMATIONPatient MRN Name Date of Age Gend*PT [id number] Juan Nielson 1945 74 years M ---PT Location Admission Date/Time Visit ID Attending Provider --- --- --- --- EPI ID CSN Admitting Provider [id number] ---POST OPERATIVE VISITDATE OF SURGERY: 09/15/20PROCEDURE: right [...] to schedulefollow-up appointment with Dr. Teresa, his lepidopterist.Operative report belowDATE OF SURGERY: 09/15/20 ATTENDING: LORRI [...] rce(s) Supporting Document(s) ID Date Data Source [id number] 09/16/2020 07:55:59 AM EDT [facility] Name Value Range Interpretation Code Description Data Serena rce(s) Supporting Document(s) POC NOVA GLU 132 mg/dL (70-99) H [facility] PERFORMED BY [facility] ID Date Data Source [id number] 09/16/2020 06:20:07 AM EDT [facility] Name Value Range Interpretation Code Description Data Serena rce(s) Supporting Document(s) CALCIUM 8.6 mg/dL (8.4-10.2) [facility] ID Date Data Source [id number] 09/15/2020 06:16:59 PM EDT [facility] Name Value Range Interpretation Code Description Data Serena rce(s) Supporting Document(s) POC NOVA GLU 270 mg/dL (70-99) H [facility]FOR[facility] ID Date Data Source [id number] 09/15/2020 02:45:53 PM EDT [facility] Name Value Range Interpretation Code Description Data Serena rce(s) Supporting Document(s) POC NOVA GLU 180 mg/dL (70-99) [facility]FOR[facility] ID Date Data Source [id number] 09/15/2020 11:50:20 AM EDT [facility] Name Value Range Interpretation Code Description Data Serena rce(s) Supporting Document(s) POC NOVA GLU 137 mg/dL (70-99) H [facility] PERFORMED BY [facility] ID Date Data Source [id number] 09/15/2020 11:18:[address] [facility] INFORMATIONPatient MRN Name Date of Age Gend*PT [id number] Juan Nielson 1945 74 years M SDCXPT Location Admission Date/Time Visit ID Attending ProviderPERIOP POOL 09/15/20 0809 --- Lorri Fraser MD([id number]) EPI ID CSN Admitting Provider [id number] Lorri Fraser MD([id number])DATE OF SURGERY: 09/15/20ATTENDING: LORRI FRASER MDPRE OPERATIVE [...] rce(s) Supporting Document(s) ID Date Data Source [id number] 09/15/2020 10:05:[address] [facility] INFORMATIONPatient MRN Name Date of Age Gend*PT [id number] Juan Nielson 1945 74 years M SDCXPT Location Admission Date/Time Visit ID Attending Provider --- --- --- --- EPI ID CSN Admitting Provider [id number] ---AirwayPatient location during procedure: ORUrgency: electiveDifficult airway: [...] cmPlacement verified by: chest auscultation and + [id number]: equal breath sounds bilateralGrade view: grade I - full view of glottis Name Value Range Interpretation Code Description Data Serena rce(s) Supporting Document(s) ID Date Data Source [id number] 09/15/2020 09:36:43 AM EDT [facility] Name Value Range Interpretation Code Description Data Serena rce(s) Supporting Document(s) POC NOVA GLU 143 mg/dL (70-99) H [facility] PERFORMED BY [facility] ID Date Data Source [id number] 09/15/2020 08:53:[address] [facility] INFORMATIONPatient MRN Name Date of Age Gend*PT [id number] Juan Nielson 1945 74 years M SDCXPT Location Admission Date/Time Visit ID [facility]20 0809 --- Lorri Fraser MD([id number]) EPI ID CSN Admitting Provider [id number] Lorri Fraser MD([id number])H&P reviewed. The patient was examined and there are no changes to the H&P.Lorri Fraser MD8:53 AM Name Value Range Interpretation Code Description Data [facility] rce(s) Supporting Document(s) ID Date Data Source [id number] 09/19/2020 04:56:26 PM EDT Lab 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 DIAGNOSISTHYROID, LEFT LOBE, LOBECTOMY: THYROID TISSUE WITH [...] 09/19/2020Electronically Signed Out By Tanvir Simmons MD [facility] [place] [address] [id number] component performed at [facility] Centern2[facility]CU[facility], Histopathology, [address] [place] [address], [phone].Reported at [facility], [address] [place] [address], [phone]. This report may includeimmunohistochemical or in-situ hybridization results. Testing wasdeveloped and the performance characteristics determined by [employer] as required by CLIA '88. The FDA hasdetermined that approval for specific use is not necessary for clinicaluse. The quality of Hematoxylin and Eosin stains and as applicable, forall immunohistochemical and/or special stains, including positive andnegative controls, were reviewed and considered appropriate.ICD codes C73CPT codesA: 05489H Name Value Range Interpretation Code Description Data Serena rce(s) Supporting Document(s) ID Date Data Source [id number] 09/10/2020 09:20:00 AM EDT [facility] Name Value Range Interpretation Code Description Data Serena rce(s) Supporting Document(s) SARS coronavirus 2 RNA [facility] This lab was ordered by [facility] and reported by [facility]. ID Date Data Source [id number] 09/11/2020 12:07:48 PM EDT [facility] Name Value Range Interpretation Code Description Data Serena rc(s) Supporting Document(s) SARS-COV-2 JUAN PABLO [facility] Not DetectedReference range: Not Detecte d This nucleic acid amplification test was developed and its performance characteristics determined by [facility]. Nucleic acid amplification tests include PCR [...] result in this assay. Performed At: [facility] [address] [id number] Gerardo Snider MD Ph:[phone] ID Date Data Source [id number] 09/02/2020 10:13:[address] [facility] NT INFORMATIONPatient MRN Name Date of Age Gend*PT [id number] Juan Nielson 1945 74 years M OPPT Location Admission Date/Time Visit ID Attending Provider --- --- --- Lorri Fraser MD([id number]) EPI ID CSN Admitting Provider [id number] ---OUTPATIENT / OBSERVATIONAL SURGICAL OR INVASIVE PROCEDUREName: [...] SPINAL CORD STIMULATOR; Surgeon: MD Navarro; Location: [facility]; Service: Spine; Laterality: N/A; COLONOSCOPY DIAPHRAGMATIC HERNIA REPAIR FRACTURE SURGERY Right ankle PAIN PROCEDURE N/A 07/22/2014 Procedure: LAMINECTOMY, THORACIC INSERTION OF SPINAL CORD STIMULATOR ANDGENERATOR ; Surgeon: Juan Strong MD; Location: [facility]; Service:Pain Management; Laterality: N/A; skin lesions removed [...] thyromegaly. No carotid bruits.MENTAL / NEUROLOGICAL STATUS: [id number]: Clear to auscultation. No wheezes, rhonchi or crackles.HEART: Rate rhythm regular. S1, S2. No murmur, rub or gallop.ABDOMEN: Obese. Bowel sounds positive times four. Soft, non tender. No reboundtenderness. No hepatosplenomegaly. Negative CVAT.EXTREMITIES: Pulses are symmetrical. +Right ankle edema.OPERATIVE SITE: Neck without rashes.Anesthesia complications: denies[facility] Frailty Scale :: 3/10 Managing Well (medical problems are well controlled,but are not regularly active beyond routine walking).Stop Bang Questionnaire - Total Score:STOP-Bang Total Score: 3ASSESSMENT: Primary Diagnosis/Indication: Thyroid cancer.PLAN: Procedure: THYROIDECTOMY, SUBTOTAL (LOBECTOMY) LEFT.09/02/2020 10:13 Efe España, NPThis document or parts of this document, were dictated using Joome software. A reasonable attempt at proofreading has beenmade to minimize errors. Please call with any questions or corrections. Name Value Range Interpretation Code Description Data Serena rce(s) Supporting Document(s) Procedure Social History Code Duration Value Status Description Data Source(s ) Smoking 03/18/2021 12:00:00 AM EDT Former Smoker completed Former Smoker eCW1 ([facility]cludes [facility]) Smoking 03/18/2021 12:00:00 AM EDT Former Smoker completed Former Smoker eCW1 (Count Includes [facility]) Alcohol intake 09/16/2020 12:00:00 AM EDT Yes completed [facility] Cigarette pack-years 09/16/2020 12:00:00 AM EDT UNK completed [facility] Cigarettes smoked current (pack per day) - Reported 09/16/20 12:00:00 AM EDT UNK completed [facility] Smoking 09/16/2020 12:00:00 AM EDT Former smoker completed Former smoker [facility] Smoking 09/12/2020 12:00:00 AM EDT Former Smoker completed Former Smoker eCW1 (Count Includes [facility]) Smoking 09/12/2020 12:00:00 AM EDT Former Smoker completed Former Smoker eCW1 (Count Includes [facility]) Vital Signs ID Date Data Source UNK Name Value Range Interpretation Code Description Data Source(s) Systolic blood pressure 149 mm[Hg] 149 mm[Hg] A THENA ([facility]) Diastolic blood pressure 92 mm[Hg] 92 mm[Hg] NORA ([facility]) Body height 67 [in_i] 67 [in_i] NORA ([facility]) Diastolic blood pressure 95 mm[Hg] 95 mm[Hg] NORA ([facility]) Body height 67 [in_i] 67 [in_i] NORA ([facility]) Systolic blood pressure 169 mm[Hg] 169 mm[Hg] A THENA ([facility]) Diastolic blood pressure 95 mm[Hg] 95 mm[Hg] NORA ([facility]) Body height 67 [in_i] 67 [in_i] NORA ([facility]) Systolic blood pressure 169 mm[Hg] 169 mm[Hg] A THENA ([facility]) Diastolic blood pressure 95 mm[Hg] 95 mm[Hg] NORA ([facility]) Body height 67 [in_i] 67 [in_i] NORA ([facility]) Systolic blood pressure 169 mm[Hg] 169 mm[Hg] A THENA ([facility]) Systolic blood pressure 156 mm[Hg] 156 mm[Hg] A THENA ([facility]) Diastolic blood pressure 86 mm[Hg] 86 mm[Hg] NORA ([facility]) Body height 67 [in_i] 67 [in_i] NORA ([facility]) Diastolic blood pressure 86 mm[Hg] 86 mm[Hg] NORA ([facility]) Body height 67 [in_i] 67 [in_i] NORA ([facility]) Systolic blood pressure 156 mm[Hg] 156 mm[Hg] A THENA ([facility]) Diastolic blood pressure 86 mm[Hg] 86 mm[Hg] NORA ([facility]) Body height 67 [in_i] 67 [in_i] NORA ([facility]) Systolic blood pressure 156 mm[Hg] 156 mm[Hg] A THENA ([facility]) Diastolic blood pressure 86 mm[Hg] 86 mm[Hg] NORA ([facility]) Body height 67 [in_i] 67 [in_i] NORA ([facility]) Systolic blood pressure 156 mm[Hg] 156 mm[Hg] A THENA ([facility]) Body weight 207 [lb_av] 207 [lb_av] eCW1 ([facility]) Body height 67 [in_i] 67 [in_i] eCW1 ([facility]) Body mass index (BMI) [Ratio] 32.42 kg/m2 32.42 kg/m2 eCW1 ([facility] Includes [facility]) Heart rate 75 /min 75 /min eCW1 ([facility]) Respiratory rate 18 /min 18 /min eCW1 ([facility]) Systolic blood pressure 158 mm[Hg] 158 mm[Hg] e CW1 ([facility]cludes [facility]) Diastolic blood pressure 100 mm[Hg] 100 mm[Hg] eCW1 ([facility]cludes [facility]) Diastolic blood pressure 77 mm[Hg] 77 mm[Hg] NORA ([facility]) Body height 67 [in_i] 67 [in_i] NORA ([facility]) Systolic blood pressure 147 mm[Hg] 147 mm[Hg] A THENA ([facility]) Diastolic blood pressure 77 mm[Hg] 77 mm[Hg] NORA ([facility]) Body height 67 [in_i] 67 [in_i] NORA ([facility]) Systolic blood pressure 147 mm[Hg] 147 mm[Hg] A THENA ([facility]) Diastolic blood pressure 77 mm[Hg] 77 mm[Hg] NORA ([facility]) Body height 67 [in_i] 67 [in_i] NORA ([facility]) Systolic blood pressure 147 mm[Hg] 147 mm[Hg] A THENA ([facility]) Diastolic blood pressure 77 mm[Hg] 77 mm[Hg] NORA ([facility]) Body height 67 [in_i] 67 [in_i] NORA ([facility]) Systolic blood pressure 147 mm[Hg] 147 mm[Hg] A THENA ([facility]) Diastolic blood pressure 77 mm[Hg] 77 mm[Hg] NORA ([facility]) Body height 67 [in_i] 67 [in_i] NORA ([facility]) Systolic blood pressure 147 mm[Hg] 147 mm[Hg] A THENA ([facility]) Diastolic blood pressure 77 mm[Hg] 77 mm[Hg] NORA ([facility]) Body height 67 [in_i] 67 [in_i] NORA ([facility]) Systolic blood pressure 147 mm[Hg] 147 mm[Hg] A THENA ([facility]) Diastolic blood pressure 77 mm[Hg] 77 mm[Hg] NORA ([facility]) Body height 67 [in_i] 67 [in_i] NORA ([facility]) Systolic blood pressure 147 mm[Hg] 147 mm[Hg] A THENA ([facility]) Body surface area Derived from formula 2.06 m2 2.06 m2 [facility] ) Systolic blood pressure 142 mm[Hg] 142 mm[Hg] M EDENT ([facility], ) Diastolic blood pressure 82 mm[Hg] 82 mm[Hg] [facility] ([facility], ) Body height 67 [in_i] 67 [in_i] [facility] ([facility], ) 5'7" Body weight 208.38 [lb_av] 208.38 [lb_av] MEDEN T ([facility], ) Body mass index (BMI) [Ratio] 32.6 kg/m2 32.6 k g/m2 [facility] ([facility], ) [place] body weight 148 [lb_av] 148 [lb_av] MEDEN T ([facility], ) Body weight 94.519 kg 94.519 kg [facility] ([facility], ) Diastolic blood pressure 86 mm[Hg] 86 mm[Hg] NORA ([facility]) Body height 67 [in_i] 67 [in_i] NORA ([facility]) Systolic blood pressure 148 mm[Hg] 148 mm[Hg] A THENA ([facility]) Diastolic blood pressure 86 mm[Hg] 86 mm[Hg] NORA ([facility]) Body height 67 [in_i] 67 [in_i] NORA ([facility]) Systolic blood pressure 148 mm[Hg] 148 mm[Hg] A THENA ([facility]) Diastolic blood pressure 86 mm[Hg] 86 mm[Hg] NORA ([facility]) Body height 67 [in_i] 67 [in_i] NORA ([facility]) Systolic blood pressure 148 mm[Hg] 148 mm[Hg] A THENA ([facility]) Diastolic blood pressure 86 mm[Hg] 86 mm[Hg] NORA ([facility]) Body height 67 [in_i] 67 [in_i] NORA ([facility]) Systolic blood pressure 148 mm[Hg] 148 mm[Hg] A THENA ([facility]) Diastolic blood pressure 86 mm[Hg] 86 mm[Hg] NORA ([facility]) Body height 67 [in_i] 67 [in_i] NORA ([facility]) Systolic blood pressure 148 mm[Hg] 148 mm[Hg] A THENA ([facility]) Diastolic blood pressure 86 mm[Hg] 86 mm[Hg] NORA ([facility]) Body height 67 [in_i] 67 [in_i] NORA ([facility]) Systolic blood pressure 148 mm[Hg] 148 mm[Hg] A THENA ([facility]) Diastolic blood pressure 86 mm[Hg] 86 mm[Hg] NORA ([facility]) Body height 67 [in_i] 67 [in_i] NORA ([facility]) Systolic blood pressure 148 mm[Hg] 148 mm[Hg] A THENA ([facility]) Diastolic blood pressure 86 mm[Hg] 86 mm[Hg] NORA ([facility]) Body height 67 [in_i] 67 [in_i] NORA ([facility]) Systolic blood pressure 148 mm[Hg] 148 mm[Hg] A THENA ([facility]) Systolic blood pressure 150 mm[Hg] 150 mm[Hg] M EDENT ([facility]) Diastolic blood pressure 80 mm[Hg] 80 mm[Hg] [facility] Body height 67 [in_i] 67 [in_i] [facility] ([facility]) 5'7" Body weight 205.00 [lb_av] 205.00 [lb_av] MEDEN T ([facility]) Body mass index (BMI) [Ratio] 32.1 kg/m2 32.1 k g/m2 [facility] ([facility]) [place] body weight 148 [lb_av] 148 [lb_av] [facility] Body weight 92.988 kg 92.988 kg [facility] ([facility]) Body surface area Derived from formula 2.04 m2 2.04 m2 [facility] ([facility]) Diastolic blood pressure 83 mm[Hg] 83 mm[Hg] NORA ([facility]) Body height 67 [in_i] 67 [in_i] NORA ([facility]) Systolic blood pressure 158 mm[Hg] 158 mm[Hg] A THENA ([facility]) Diastolic blood pressure 83 mm[Hg] 83 mm[Hg] NORA ([facility]) Body height 67 [in_i] 67 [in_i] NORA ([facility]) Systolic blood pressure 158 mm[Hg] 158 mm[Hg] A THENA ([facility]) Diastolic blood pressure 83 mm[Hg] 83 mm[Hg] NORA ([facility]) Body height 67 [in_i] 67 [in_i] NORA ([facility]) Systolic blood pressure 158 mm[Hg] 158 mm[Hg] A THENA ([facility]) Diastolic blood pressure 83 mm[Hg] 83 mm[Hg] NORA ([facility]) Body height 67 [in_i] 67 [in_i] NORA ([facility]) Systolic blood pressure 158 mm[Hg] 158 mm[Hg] A THENA ([facility]) Diastolic blood pressure 83 mm[Hg] 83 mm[Hg] NORA ([facility]) Body height 67 [in_i] 67 [in_i] NORA ([facility]) Systolic blood pressure 158 mm[Hg] 158 mm[Hg] A THENA ([facility]) Diastolic blood pressure 83 mm[Hg] 83 mm[Hg] NORA ([facility]) Body height 67 [in_i] 67 [in_i] NORA ([facility]) Systolic blood pressure 158 mm[Hg] 158 mm[Hg] A THENA ([facility]) Diastolic blood pressure 83 mm[Hg] 83 mm[Hg] NORA ([facility]) Body height 67 [in_i] 67 [in_i] NORA ([facility]) Systolic blood pressure 158 mm[Hg] 158 mm[Hg] A THENA ([facility]) Diastolic blood pressure 83 mm[Hg] 83 mm[Hg] NORA ([facility]) Body height 67 [in_i] 67 [in_i] NORA ([facility]) Systolic blood pressure 158 mm[Hg] 158 mm[Hg] A THENA ([facility]) Diastolic blood pressure 83 mm[Hg] 83 mm[Hg] NORA ([facility]) Body height 67 [in_i] 67 [in_i] NORA ([facility]) Systolic blood pressure 158 mm[Hg] 158 mm[Hg] A THENA ([facility]) Diastolic blood pressure 83 mm[Hg] 83 mm[Hg] NORA ([facility]) Body height 67 [in_i] 67 [in_i] NORA ([facility]) Systolic blood pressure 158 mm[Hg] 158 mm[Hg] A THENA ([facility]) Diastolic blood pressure 83 mm[Hg] 83 mm[Hg] NORA ([facility]) Body height 67 [in_i] 67 [in_i] NORA ([facility]) Systolic blood pressure 158 mm[Hg] 158 mm[Hg] A THENA ([facility]) Diastolic blood pressure 83 mm[Hg] 83 mm[Hg] NORA ([facility]) Body height 67 [in_i] 67 [in_i] NORA ([facility]) Systolic blood pressure 158 mm[Hg] 158 mm[Hg] A THENA ([facility]) Diastolic blood pressure 83 mm[Hg] 83 mm[Hg] NORA ([facility]) Body height 67 [in_i] 67 [in_i] NORA ([facility]) Systolic blood pressure 158 mm[Hg] 158 mm[Hg] A THENA ([facility]) Oxygen saturation in Arterial blood by Pulse [...] g/m2 MEDENT ([facility]) Systolic blood pressure 170 mm[Hg] 170 mm[Hg] A THENA ([facility]) Diastolic blood pressure 80 mm[Hg] 80 mm[Hg] NORA ([facility]) Body height 67 [in_i] 67 [in_i] NORA ([facility]) Diastolic blood pressure 80 mm[Hg] 80 mm[Hg] NORA ([facility]) Body height 67 [in_i] 67 [in_i] NORA ([facility]) Systolic blood pressure 170 mm[Hg] 170 mm[Hg] A THENA ([facility]) Diastolic blood pressure 80 mm[Hg] 80 mm[Hg] NORA ([facility]) Body height 67 [in_i] 67 [in_i] NORA ([facility]) Systolic blood pressure 170 mm[Hg] 170 mm[Hg] A THENA ([facility]) Diastolic blood pressure 80 mm[Hg] 80 mm[Hg] NORA ([facility]) Body height 67 [in_i] 67 [in_i] NORA ([facility]) Systolic blood pressure 170 mm[Hg] 170 mm[Hg] A THENA ([facility]) Diastolic blood pressure 80 mm[Hg] 80 mm[Hg] NORA ([facility]) Body height 67 [in_i] 67 [in_i] NORA ([facility]) Systolic blood pressure 170 mm[Hg] 170 mm[Hg] A THENA ([facility]) Diastolic blood pressure 80 mm[Hg] 80 mm[Hg] NORA ([facility]) Body height 67 [in_i] 67 [in_i] NORA ([facility]) Systolic blood pressure 170 mm[Hg] 170 mm[Hg] A THENA ([facility]) Body height 67 [in_i] 67 [in_i] NORA ([facility]) Diastolic blood pressure 80 mm[Hg] 80 mm[Hg] NORA ([facility]) Systolic blood pressure 170 mm[Hg] 170 mm[Hg] A THENA ([facility]) Diastolic blood pressure 80 mm[Hg] 80 mm[Hg] NORA ([facility]) Body height 67 [in_i] 67 [in_i] NORA ([facility]) Systolic blood pressure 170 mm[Hg] 170 mm[Hg] A THENA ([facility]) Diastolic blood pressure 80 mm[Hg] 80 mm[Hg] NORA ([facility]) Body height 67 [in_i] 67 [in_i] NORA ([facility]) Systolic blood pressure 170 mm[Hg] 170 mm[Hg] A THENA ([facility]) Diastolic blood pressure 80 mm[Hg] 80 mm[Hg] NORA ([facility]) Body height 67 [in_i] 67 [in_i] NORA ([facility]) Systolic blood pressure 170 mm[Hg] 170 mm[Hg] A THENA ([facility]) Diastolic blood pressure 80 mm[Hg] 80 mm[Hg] NORA ([facility]) Body height 67 [in_i] 67 [in_i] NORA ([facility]) Systolic blood pressure 170 mm[Hg] 170 mm[Hg] A THENA ([facility]) Diastolic blood pressure 80 mm[Hg] 80 mm[Hg] NORA ([facility]) Body height 67 [in_i] 67 [in_i] NORA ([facility]) Systolic blood pressure 170 mm[Hg] 170 mm[Hg] A THENA ([facility]) Diastolic blood pressure 80 mm[Hg] 80 mm[Hg] NORA ([facility]) Body height 67 [in_i] 67 [in_i] NORA ([facility]) Systolic blood pressure 170 mm[Hg] 170 mm[Hg] A THENA ([facility]) Diastolic blood pressure 80 mm[Hg] 80 mm[Hg] NORA ([facility]) Body height 67 [in_i] 67 [in_i] NORA ([facility]) Systolic blood pressure 170 mm[Hg] 170 mm[Hg] A THENA ([facility]) Systolic blood pressure 119 mm[Hg] 119 mm[Hg] [facility] Diastolic blood pressure 62 mm[Hg] 62 mm[Hg] [facility] Heart rate 70 /min 70 /min [facility] Body temperature 36.44 Nani 36.44 Nani [facility] Respiratory rate 16 /min 16 /min [facility] Oxygen saturation in Arterial blood by Pulse oximetry 93 % 93 % [facility] Body height 170.2 cm 170.2 cm [facility] Body weight 92.987 kg 92.987 kg [facility] Body mass index (BMI) [Ratio] 32.11 kg/m2 32.11 kg/m2 [facility] Respiratory rate 18 /min 18 /min eCW1 ([facility]) Body temperature 97.3 [degF] 97.3 [degF] eCW1 ( [facility]) Systolic blood pressure 150 mm[Hg] 150 mm[Hg] e CW1 ([facility]cludes [facility]) Diastolic blood pressure 82 mm[Hg] 82 mm[Hg] eCW1 ([facility]cludes [facility]) Body weight 207 [lb_av] 207 [lb_av] eCW1 ([facility]) Body height 67 [in_i] 67 [in_i] eCW1 ([facility]) Body mass index (BMI) [Ratio] 32.42 kg/m2 32.42 kg/m2 eCW1 ([facility]cludes [facility]) Heart rate 73 /min 73 /min eCW1 ([facility]) Patient Treatment Plan of Care Planned Activity Planned Date Details Description Data Source (s) pregabalin 150 MG Oral Capsule NORA ([facility]) methylprednisolone 4 mg tablets in a dose pack NORA ([facility]) 24 HR Metformin hydrochloride 500 MG Extended Release Oral Tablet NORA ([facility]) Fluad Quad (65yr up)(PF) 60 mcg (15 mcg x 4)/0.5mL IM syringe [facility] Amoxicillin 875 MG / Clavulanate 125 MG Oral Tablet ONRA ([facility]) methylprednisolone 4 mg tablets in a dose pack NORA ([facility]) 24 HR Metformin hydrochloride 500 MG Extended Release Oral Tablet NORA ([facility]) Fluad Quad (65yr up)(PF) 60 mcg (15 mcg x 4)/0.5mL IM syringe [facility]JECT [facility] methylprednisolone 4 mg tablets in a dose pack NORA ([facility]) 24 HR Metformin hydrochloride 500 MG Extended Release Oral Tablet NORA ([facility]) Fluad Quad (65yr up)(PF) 60 mcg (15 mcg x 4)/0.5mL IM syringe INJECT DIRECTED NORA ([facility]) 24 HR Metformin hydrochloride 500 MG Extended Release Oral Tablet NORA ([facility]) Fluad Quad (65yr up)(PF) 60 mcg (15 mcg x 4)/0.5mL IM syringe INJECT DIRECTED NORA ([facility]) 24 HR Metformin hydrochloride 500 MG Extended Release Oral Tablet NORA ([facility]) Fluad Quad (65yr up)(PF) 60 mcg (15 mcg x 4)/0.5mL IM syringe INJECT DIRECTED NORA ([facility]) 24 HR Metformin hydrochloride 500 MG Extended Release Oral Tablet NORA ([facility]) Fluad Quad (65yr up)(PF) 60 mcg (15 mcg x 4)/0.5mL IM syringe INJECT DIRECTED NORA ([facility]) 24 HR Metformin hydrochloride 500 MG Extended Release Oral Tablet NORA ([facility]) Fluad Quad (65yr up)(PF) 60 mcg (15 mcg x 4)/0.5mL IM syringe INJECT DIRECTED NORA ([facility]) 24 HR Metformin hydrochloride 500 MG Extended Release Oral Tablet NORA ([facility]) Fluad Quad (65yr up)(PF) 60 mcg (15 mcg x 4)/0.5mL IM syringe INJECT DIRECTED NORA ([facility]) 24 HR Metformin hydrochloride 500 MG Extended Release Oral Tablet NORA ([facility]) Fluad Quad (65yr up)(PF) 60 mcg (15 mcg x 4)/0.5mL IM syringe [facility]JECT [facility]A [facility] 24 HR Metformin hydrochloride 500 MG Extended Release Oral Tablet NORA ([facility]) Fluad Quad (65yr up)(PF) 60 mcg (15 mcg x 4)/0.5mL IM syringe INJECT DIRECTED NORA ([facility]) 24 HR Metformin hydrochloride 500 MG Extended Release Oral Tablet NORA ([facility]) Fluad Quad (65yr up)(PF) 60 mcg (15 mcg x 4)/0.5mL IM syringe INJECT DIRECTED NORA ([facility]) 24 HR Metformin hydrochloride 500 MG Extended Release Oral Tablet NORA ([facility]) Fluad Quad (65yr up)(PF) 60 mcg (15 mcg x 4)/0.5mL IM syringe INJECT DIRECTED NORA ([facility]) 24 HR Metformin hydrochloride 500 MG Extended Release Oral Tablet NORA ([facility]) Fluad Quad (65yr up)(PF) 60 mcg (15 mcg x 4)/0.5mL IM syringe INJECT DIRECTED NORA [facility] 24 HR Metformin hydrochloride 500 MG Extended Release Oral Tablet [facility]
[2021-10-14 09:57] LABS: CK-MB VALUE MASS 12.8 NG/ML (<3.6); MB/CK RELATIVE INDEX 7.27 (< OR =4); TROPONIN I 1.2 NG/ML (< 0.10)
[2021-10-14] MEDS ORDERED: CLOPIDOGREL 300 MG TAB (PLAVIX) PO ONE (10:15)
[2021-10-14] MEDS ORDERED: NITROGLYCERIN 2% OINT 1 GM *U/D* PKT TOP ONE (10:15)
[2021-10-14] MEDS ORDERED: HEPARIN DRIP 25,000 UNITS in IV 1 EA IV SCH (10:15)
[2021-10-14] MEDS ORDERED: HEPARIN SOD (PORCINE) 5000UNITS/ML 1ML VIAL/SYRINGE IV ONE (10:15)
[2021-10-14] MEDS ORDERED: PREGABALIN 100 MG CAP (LYRICA) PO ONE (11:00)
[2021-10-14] MEDS ORDERED: PERCOCET 5MG/325MG TAB PO ONE (11:00)
[2021-10-14 11:11] VITALS: BP 167/83
--- NOTE | 2021-10-14 16:38 | ECGEPIP ---
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
== END 2021-10-14 11:41 | disposition short-term general hospital (02) ==
LOC: M ED 06:09
DX: I21.4 Non-ST elevation (NSTEMI) myocardial infarction (principal); I10 Essential (primary) hypertension; E78.5 Hyperlipidemia, unspecified; E89.0 Postprocedural hypothyroidism; F95.9 Tic disorder, unspecified; Z79.899 Other long term (current) drug therapy; Z79.82 Long term (current) use of aspirin; Z79.890 Hormone replacement therapy; Z79.84 Long term (current) use of oral hypoglycemic drugs
CPT/HCPCS: 71045; 80048; 82550; 82553; 84484; 85025; 93005; 93041; 94760; 96374; 99285; J1644

== ENCOUNTER → 2021-11-04 | Outpatient (CLI) | payer MEDICARE ==
[2021-11-04 15:49] LABS: FREE T4 1.27 NG/DL (0.76-1.46); THYROID STIMULATING HORMONE 0.227 uIU/ML (0.358-3.740)
== END ==
LOC: M PLALAB 12:04
PROVIDERS: ATTEND Internal Medicine Endocrinology, Diabetes & Metabolism
DX: C73 Malignant neoplasm of thyroid gland (principal)

== ENCOUNTER → 2021-11-24 | Outpatient (CLI) | payer MEDICARE | LOC: M RAD 15:19 | PROVIDERS: ATTEND Physician Assistant | DX: R09.89 Other specified symptoms and signs involving the circulatory and respiratory systems (principal) ==

== ENCOUNTER 2022-04-24 12:01 | Emergency (ER) | payer MEDICARE ==
[~2022-04-24] VITALS: Ht 170.2 cm; Wt 90.9 kg
[2022-04-24 13:11] LABS: BASO % 0.3 % (0.0-1.0); EOS # 0.1 10^3/uL (0.0-0.5); EOS % 0.5 % (0.0-3.0); HEMATOCRIT 39.6 % (42.0-52.0); HEMOGLOBIN 13.3 g/dl (13.5-17.5); LYMPH # 1.5 10^3/uL (1.5-5.0); LYMPH % 16.1 % (24.0-44.0); MEAN CORPUSCULAR HEMOGLOBIN 30.3 pg (27.0-33.0); MEAN CORPUSCULAR HGB CONC 33.6 g/dl (32.0-36.5); MEAN CORPUSCULAR VOLUME 90.2 fl (80.0-96.0); MONO # 0.5 10^3/uL (0.0-0.8); MONO % 5.7 % (2.0-8.0); NEUTROPHILS # 7.1 10^3/uL (1.5-8.5); NEUTROPHILS % 76.9 % (36.0-66.0); PLATELET COUNT, AUTOMATED 144 10^3/uL (150-450); RED BLOOD COUNT 4.39 10^6/uL (4.30-6.10); WHITE BLOOD COUNT 9.2 10^3/uL (4.0-10.0)
[2022-04-24 13:34] LABS: BLOOD UREA NITROGEN 14 MG/DL (7-18); CALCIUM LEVEL 8.7 MG/DL (8.8-10.2); CARBON DIOXIDE LEVEL 25 MEQ/L (21-32); CHLORIDE LEVEL 108 MEQ/L (98-107); CREATININE FOR GFR 0.94 MG/DL (0.70-1.30); GLOMERULAR FILTRATION RATE > 60.0 (>42); GLUCOSE, FASTING 149 MG/DL (70-100); POTASSIUM SERUM 3.8 MEQ/L (3.5-5.1); SODIUM LEVEL 140 MEQ/L (136-145)
[2022-04-24 15:00] VITALS: BP 161/84
== END 2022-04-24 15:19 | disposition home or self-care (01) ==
LOC: EDBD 12:01 → M ED 12:01
DX: R33.9 Retention of urine, unspecified (principal); R30.0 Dysuria; I10 Essential (primary) hypertension; E78.5 Hyperlipidemia, unspecified; K21.9 Gastro-esophageal reflux disease without esophagitis; M54.50 Low back pain, unspecified; Z95.5 Presence of coronary angioplasty implant and graft; Z79.899 Other long term (current) drug therapy; Z79.82 Long term (current) use of aspirin; Z79.84 Long term (current) use of oral hypoglycemic drugs; Z79.890 Hormone replacement therapy

== ENCOUNTER 2022-04-27 14:00 | Emergency (ER) | payer MEDICARE ==
[~2022-04-27] VITALS: Ht 170.2 cm; Wt 94.3 kg
[2022-04-27 18:05] VITALS: BP 160/80
== END 2022-04-27 18:06 | disposition home or self-care (01) ==
LOC: M ED 14:00
DX: N32.89 Other specified disorders of bladder (principal); R33.9 Retention of urine, unspecified; T83.091A Other mechanical complication of indwelling urethral catheter, initial encounter; E03.9 Hypothyroidism, unspecified; I10 Essential (primary) hypertension; E78.5 Hyperlipidemia, unspecified; Z79.82 Long term (current) use of aspirin; Z79.899 Other long term (current) drug therapy; Z79.890 Hormone replacement therapy

== ENCOUNTER → 2022-08-30 | Outpatient (CLI) | payer MEDICARE | LOC: M RAD 14:30 | PROVIDERS: ATTEND Family Medicine | DX: M25.562 Pain in left knee (principal) ==

== ENCOUNTER → 2023-05-17 | Outpatient (CLI) | payer MEDICARE | LOC: M PLAIMG 07:21 | PROVIDERS: ATTEND Family Medicine | DX: M25.562 Pain in left knee (principal) ==

== ENCOUNTER → 2023-06-04 | Outpatient (CLI) | payer MEDICARE ==
[2023-06-04 12:09] LABS: FREE T4 0.88 NG/DL (0.89-1.76); THYROID STIMULATING HORMONE 7.497 uIU/ML (0.55-4.78)
[2023-06-04 12:11] LABS: THYROGLOBULIN ANTIBODY < 15.0 U/ML (<60.0)
== END ==
LOC: M LAB 10:37
PROVIDERS: ATTEND Internal Medicine Endocrinology, Diabetes & Metabolism
DX: C73 Malignant neoplasm of thyroid gland (principal); E89.0 Postprocedural hypothyroidism

== ENCOUNTER → 2023-06-23 | Outpatient (CLI) | payer MEDICARE ==
[2023-06-23 09:46] LABS: BASO % 0.5 % (0.0-1.0); EOS # 0.1 10^3/uL (0.0-0.5); EOS % 1.2 % (0.0-3.0); HEMATOCRIT 43.5 % (42.0-52.0); HEMOGLOBIN 13.9 g/dl (13.5-17.5); LYMPH # 3.4 10^3/uL (1.5-5.0); LYMPH % 45.1 % (24.0-44.0); MEAN CORPUSCULAR HEMOGLOBIN 30.5 pg (27.0-33.0); MEAN CORPUSCULAR VOLUME 95.4 fl (80.0-96.0); MONO # 0.5 10^3/uL (0.0-0.8); MONO % 6.6 % (2.0-8.0); NEUTROPHILS # 3.5 10^3/uL (1.5-8.5); NEUTROPHILS % 46.2 % (36.0-66.0); PLATELET COUNT, AUTOMATED 166 10^3/uL (150-450); RED BLOOD COUNT 4.56 10^6/uL (4.30-6.10); WHITE BLOOD COUNT 7.5 10^3/uL (4.0-10.0)
[2023-06-23 10:06] LABS: MAU/CREAT RATIO 4.3 MCG/MG (0.0-30.0)
[2023-06-23 10:06] LABS: ALBUMIN 3.9 G/DL (3.2-5.2); ALKALINE PHOSPHATASE 115 U/L (46-116); ALT/SGPT 10 U/L (7.0-40); AST/SGOT 15 U/L (<34); BLOOD UREA NITROGEN 17 MG/DL (9-23); CALCIUM LEVEL 8.9 MG/DL (8.3-10.6); CARBON DIOXIDE LEVEL 29 MMOL/L (20-31); CHLORIDE LEVEL 110 MMOL/L (98-107); CHOLESTEROL LEVEL 128 MG/DL (<200); CHOLESTEROL RISK RATIO 3.16 (<5); CREATININE FOR GFR 0.87 MG/DL (0.70-1.30); GLOMERULAR FILTRATION RATE > 60.0 (>42); GLUCOSE, FASTING 95 MG/DL (74-106); HDL CHOLESTEROL 40.4 MG/DL (>40); HEMOGLOBIN A1c 6.3 % (4.0-6.0); LDL CHOLESTEROL 56.2 MG/DL (<100); NON-HDL-C 87.6 MG/DL; POTASSIUM SERUM 4.2 MMOL/L (3.5-5.1); SODIUM LEVEL 143 MMOL/L (136-145); TOTAL PROTEIN 6.1 G/DL (5.7-8.2); TRIGLYCERIDES LEVEL 157 MG/DL (<150)
[2023-06-23 10:07] LABS: THYROID STIMULATING HORMONE 0.327 uIU/ML (0.55-4.78)
[2023-06-23 10:08] LABS: FREE T3 3.6 PG/ML (2.3-4.2); FREE T4 1.56 NG/DL (0.89-1.76)
== END ==
LOC: M LAB 08:47
PROVIDERS: ATTEND Family Medicine
DX: E11.9 Type 2 diabetes mellitus without complications (principal)

== ENCOUNTER → 2024-02-27 | Outpatient (CLI) | payer MEDICARE ==
[~2024-02-27] MED LIST changes: -PREG200C PO; +PREG200C2 PO
[2024-02-27 14:15] LABS: FREE T4 1.26 NG/DL (0.89-1.76)
[2024-02-27 14:16] LABS: THYROID STIMULATING HORMONE 0.064 uIU/ML (0.55-4.78)
[2024-02-28 11:32] LABS: THRYOGLOBULIN ANTIBODIES (ATA) < 1.0 IU/mL (0.0-0.9); THYROGLOBULIN QUANTITATIVE 0.1 ng/mL (1.4-29.2)
== END ==
LOC: M PLALAB 10:32
PROVIDERS: ATTEND Internal Medicine Endocrinology, Diabetes & Metabolism
DX: C73 Malignant neoplasm of thyroid gland (principal)

== ENCOUNTER → 2024-03-20 | Outpatient (CLI) | payer MEDICARE | LOC: M RAD 09:41 | PROVIDERS: ATTEND Family Medicine | DX: R05.9 Cough, unspecified (principal) ==

== ENCOUNTER → 2024-08-14 | Outpatient (CLI) | payer MEDICARE | LOC: M LAB 08:23 | PROVIDERS: ATTEND Physician Assistant | DX: Z12.5 Encounter for screening for malignant neoplasm of prostate (principal) | CPT/HCPCS: 36415; G0103 ==

== ENCOUNTER → 2025-03-13 | Outpatient (CLI) | payer MEDICARE ==
[2025-03-13 13:54] LABS: THYROID STIMULATING HORMONE 0.19 uIU/ML (0.55-4.78)
[2025-03-13 13:55] LABS: FREE T4 1.55 NG/DL (0.89-1.76)
[2025-03-14 14:42] LABS: THRYOGLOBULIN ANTIBODIES (ATA) < 1 IU/mL (< or = 1); THYROGLOBULIN QUANTITATIVE 0.1 ng/mL (2.8-40.9)
== END ==
LOC: M PLALAB 11:48
PROVIDERS: ATTEND Nurse Practitioner Family
DX: E89.0 Postprocedural hypothyroidism (principal)

== ENCOUNTER → 2025-05-28 | Outpatient (CLI) | payer MEDICARE ==
[2025-05-28 12:28] LABS: FREE T4 1.41 NG/DL (0.89-1.76)
[2025-05-28 12:30] LABS: THYROGLOBULIN ANTIBODY 20.0 U/ML (<60.0)
[2025-05-30 17:04] LABS: THRYOGLOBULIN ANTIBODIES (ATA) < 1 IU/mL (< or = 1); THYROGLOBULIN QUANTITATIVE 0.1 ng/mL (2.8-40.9)
== END ==
LOC: M LAB 10:48
PROVIDERS: ATTEND Nurse Practitioner Family
DX: C73 Malignant neoplasm of thyroid gland (principal)

== ENCOUNTER 2025-10-13 18:27 | Inpatient (IN) | payer MEDICARE ==
[~2025-10-13] VITALS: Ht 170.2 cm; Wt 86.8 kg
[2025-10-13 18:57] LABS: BASO # 0.0 10^3/uL (0.0-0.2); BASO % 0.1 % (0.0-1.0); EOS # 0.0 10^3/uL (0.0-0.5); EOS % 0.0 % (0.0-3.0); LYMPH # 0.8 10^3/uL (1.5-5.0); LYMPH % 4.4 % (24.0-44.0); MONO # 1.1 10^3/uL (0.0-0.8); MONO % 6.0 % (2.0-8.0); NEUTROPHILS # 15.7 10^3/uL (1.5-8.5); NEUTROPHILS % 88.6 % (36.0-66.0); PLATELET COUNT, AUTOMATED 155 10^3/uL (150-450)
[2025-10-13 19:06] LABS: KETONE, URINE AUTO RFX NEGATIVE (NEGATIVE); MUCUS, URINE RFX SMALL (NEGATIVE); NITRITE, URINE AUTO RFX NEGATIVE (NEGATIVE); RBC, URINE AUTO RFX 181 /HPF (0-3); SQUAM EPITHELIAL CELL UR AURFX 0 /HPF (0-6); WBC, URINE AUTO RFX 10 /HPF (0-3)
[2025-10-13 19:07] LABS: LEUKOCYTE ESTERASE UR AUTO RFX TRACE (NEGATIVE)
[2025-10-13 19:40] LABS: ALT/SGPT 10 U/L (7.0-40); AST/SGOT 27 U/L (<34); CALCIUM LEVEL 9.3 MG/DL (8.3-10.6); CARBON DIOXIDE LEVEL 24 MMOL/L (20-31); CHLORIDE LEVEL 101 MMOL/L (98-107); CK-MB VALUE MASS < 1.0 NG/ML (<3.6); CREATININE FOR GFR 1.56 MG/DL (0.70-1.30); GLOMERULAR FILTRATION RATE 44.9 (>42); POTASSIUM SERUM 4.7 MMOL/L (3.5-5.1); SODIUM LEVEL 139 MMOL/L (136-145)
[2025-10-13] MEDS: PIPERACILLIN/TAZOBACTAM SOD 4.5 GM in DEXTROSE 5% (D5W) ADV/MINI-BAG 50 ML IV ONE (19:40)
[2025-10-13] MEDS: ACETAMINOPHEN *IV* 1,000 MG in IV 1 EA IV ONE (19:41)
[2025-10-13 19:45] LABS: CPK CREATINE PHOSPHOKINASE 49 U/L (46-171)
[2025-10-13] MEDS ORDERED: ISOVUE-370 76% 100 ML VIAL As Ordered ONE (19:59)
[2025-10-13] MEDS ORDERED: DOXYCYCLINE HYCLATE 100 MG in DEXTROSE 5% (D5W) MINI-BAG PLU 100 ML IV SCH (21:00)
[2025-10-13] MEDS: VANCOMYCIN HCL 1,000 MG, VIAL MATE ADAPTER 1 EACH in NS 250 ML IV ONE (21:07)
[2025-10-13] MEDS ORDERED: GLUCOSE 4 GM CHEW PO PRN (22:30)
[2025-10-13] MEDS ORDERED: MOM 30 ML SUSPENSION UDC PO PRN (22:30)
[2025-10-13] MEDS ORDERED: GLUCAGON INJ 1 MG VIAL SC PRN (22:30)
[2025-10-13] MEDS ORDERED: IPRATROPIUM 0.5 MG/ALBUTEROL 2.5 MG INH SOL UD 3 ML NEB PRN (22:30)
[2025-10-13] MEDS ORDERED: ONDANSETRON 4MG/2ML VIAL IV PRN (22:30)
[2025-10-13] MEDS ORDERED: DEXTROSE 50% 50 ML SYRINGE IV PRN (22:30)
[2025-10-13 23:35] VITALS: BP 149/73; TEMP 98.6; O2SAT 96
[2025-10-13] MEDS: NS (Normal Saline) 0.9% 1,000 ML IV SCH (23:45)
[2025-10-13] MEDS: INSULIN LISPRO (NovoLOG) PER UNIT SC SCH (23:47)
[2025-10-14] VITALS (8 sets, daily range): BP systolic 112–140; BP diastolic 55–63; TEMP 97.9–101.4; O2SAT 90–96
[2025-10-14] MEDS: cefTRIAXone SOD 2 GM in DEXTROSE 5% (D5W) ADV/MINI-BAG 50 ML IV SCH (01:14)
[2025-10-14] MEDS ORDERED: METO1TAB87 PO (01:50)
[2025-10-14] MEDS ORDERED: LEVO125T4 PO (01:50)
[2025-10-14] MEDS ORDERED: SYNJ1TAB13 PO (01:50)
[2025-10-14] MEDS ORDERED: DULO1CAP4 PO (01:50)
[2025-10-14] MEDS ORDERED: FINA5TAB2 PO (01:50)
[2025-10-14] MEDS ORDERED: HOME MED LIST COMPLETE! XX SCH (01:50)
[2025-10-14] MEDS ORDERED: ISOS1TAB35 PO (01:50)
[2025-10-14] MEDS ORDERED: FRUICAP PO (01:52)
[2025-10-14] MEDS ORDERED: CENT1TAB PO (01:52)
[2025-10-14] MEDS: LEVOTHYROXINE 125 MCG TABLET (0.125 MG) PO SCH (05:26)
[2025-10-14] MEDS: ACETAMINOPHEN 325 MG TAB PO PRN (05:27)
[2025-10-14 07:05] LABS: PLATELET COUNT, AUTOMATED 140 10^3/uL (150-450)
[2025-10-14 07:34] LABS: ALT/SGPT < 9 U/L (7.0-40); AST/SGOT 17 U/L (<34); CALCIUM LEVEL 8.4 MG/DL (8.3-10.6); CARBON DIOXIDE LEVEL 25 MMOL/L (20-31); CHLORIDE LEVEL 107 MMOL/L (98-107); CREATININE FOR GFR 1.06 MG/DL (0.70-1.30); GLOMERULAR FILTRATION RATE 71.4 (>42); MAGNESIUM LEVEL 1.6 MG/DL (1.8-2.4); POTASSIUM SERUM 3.6 MMOL/L (3.5-5.1); SODIUM LEVEL 144 MMOL/L (136-145)
[2025-10-14] MEDS: INSULIN LISPRO (NovoLOG) PER UNIT SC SCH (08:12)
[2025-10-14] MEDS: PERCOCET 5MG/325MG TAB PO PRN (08:12)
[2025-10-14] MEDS: DOXYCYCLINE HYCLATE 100 MG in DEXTROSE 5% (D5W) MINI-BAG PLU 100 ML IV SCH (08:18)
[2025-10-14] MEDS: ENOXAPARIN 40 MG/0.4 ML SYRINGE (J1650 PER 10MG) SC SCH (08:30)
[2025-10-14] MEDS: PREGABALIN 100 MG CAP PO SCH (08:33)
[2025-10-14] MEDS: PANTOPRAZOLE 40MG TAB PO SCH (08:33)
[2025-10-14] MEDS: TAMSULOSIN 0.4 MG CAP PO SCH (08:36)
[2025-10-14] MEDS: MIRALAX *UNIT DOSE* 17 GM PACKET PO SCH (09:00)
[2025-10-14] MEDS ORDERED: LEVOTHYROXINE 100 MCG (0.1 MG) 5ML SDV PF (SOLUTION FORM) IV SCH (09:00)
[2025-10-15] VITALS (7 sets, daily range): BP systolic 137–158; BP diastolic 66–72; TEMP 98.2–100.5; O2SAT 94–97
[2025-10-15] MEDS: DOXYCYCLINE HYCLATE 100 MG TABLET PO SCH (08:52)
[2025-10-15 09:42] LABS: PLATELET COUNT, AUTOMATED 126 10^3/uL (150-450)
[2025-10-15 10:01] LABS: CALCIUM LEVEL 8.2 MG/DL (8.3-10.6); CARBON DIOXIDE LEVEL 27.0 MMOL/L (20-31); CHLORIDE LEVEL 109.0 MMOL/L (98-107); CREATININE FOR GFR 0.89 MG/DL (0.70-1.30); GLOMERULAR FILTRATION RATE 87.2 (>42); POTASSIUM SERUM 3.6 MMOL/L (3.5-5.1); SODIUM LEVEL 146.0 MMOL/L (136-145)
[2025-10-16] VITALS (7 sets, daily range): BP systolic 123–181; BP diastolic 57–86; TEMP 98.1–99.7; O2SAT 93–98
[2025-10-16 07:15] LABS: PLATELET COUNT, AUTOMATED 128 10^3/uL (150-450)
[2025-10-16 07:46] LABS: ALT/SGPT 22 U/L (7.0-40); AST/SGOT 39 U/L (<34); CALCIUM LEVEL 8.3 MG/DL (8.3-10.6); CARBON DIOXIDE LEVEL 26 MMOL/L (20-31); CHLORIDE LEVEL 107 MMOL/L (98-107); CREATININE FOR GFR 0.76 MG/DL (0.70-1.30); GLOMERULAR FILTRATION RATE > 90.0 (>42); POTASSIUM SERUM 3.9 MMOL/L (3.5-5.1); SODIUM LEVEL 144 MMOL/L (136-145)
[2025-10-16] MEDS: METOPROLOL TART 25 MG TABLET PO SCH (20:14)
[2025-10-17 06:51] VITALS: BP 174/80; TEMP 98.6; O2SAT 92
[2025-10-17 08:00] VITALS: BP 143/70; TEMP 98.6; O2SAT 93
[2025-10-17 08:34] VITALS: BP 161/74
[2025-10-17 12:00] VITALS: BP 165/75; TEMP 98.5; O2SAT 96
[2025-10-17] MEDS ORDERED: CEFD1CAP9 PO (13:02)
[2025-10-17] MEDS ORDERED: DOXY100T PO (13:02)
== END 2025-10-17 16:10 | disposition home health service (06) | DRG 871 ==
LOC: M ED 18:27 → M ED INP 22:27 → M MS5PR 23:45
PROVIDERS: ADMIT Internal Medicine; ATTEND Student in an Organized Health Care Education/Training Program
DX: A41.9 Sepsis, unspecified organism (principal); J18.9 Pneumonia, unspecified organism; N17.9 Acute kidney failure, unspecified; I10 Essential (primary) hypertension; E11.40 Type 2 diabetes mellitus with diabetic neuropathy, unspecified; R65.20 Severe sepsis without septic shock; G89.29 Other chronic pain; M54.9 Dorsalgia, unspecified; R10.30 Lower abdominal pain, unspecified; N40.1 Benign prostatic hyperplasia with lower urinary tract symptoms; N30.91 Cystitis, unspecified with hematuria; R33.9 Retention of urine, unspecified; E03.9 Hypothyroidism, unspecified; E80.6 Other disorders of bilirubin metabolism; Z90.49 Acquired absence of other specified parts of digestive tract; Z79.82 Long term (current) use of aspirin; Z79.890 Hormone replacement therapy; Z79.84 Long term (current) use of oral hypoglycemic drugs; Z79.899 Other long term (current) drug therapy